=== PATIENT | male | born 1940 | race Caucasian/White ===

== ENCOUNTER 2017-01-14 13:54 | Inpatient (IN) | payer MEDICARE ==
[~2017-01-14] VITALS: Ht 180.3 cm; Wt 71.0 kg
[~2017-01-14 13:54] MED LIST: ADVAIR 250/501 DISK INH; BAYER CHEWABLE81 MG PO; CADUET 5 MG/401 TAB PO; GLUCOPHAGE500 MG PO; HYDROCHLOROTHIA25 MG PO; HYTRIN1 MG; LANTUS INSULIN10 ML; NOVOLOG100 U/M1; PROAIR HFA8.5 GM INH; ZOCOR20 MG PO
[2017-01-14 15:15] LABS: BASOPHILS 0.1 % (0-2); EOSINOPHILS 1.7 % (0-7); HEMATOCRIT 39.3 % (42.0-54.0); HEMOGLOBIN 13.3 g/dL (13.5-17.5); IMMATURE GRANULOCYTES 0.3 % (0-5); LYMPHOCYTES 11.3 % (15-50); MCH 30.7 pg (26.0-34.0); MCHC 33.8 g/dL (31.0-37.0); MCV 90.8 fL (80.0-100.0); MEAN PLATELET VOLUME 9.4 fL (7.4-10.4); MONOCYTES 7.4 % (2-11); NEUTROPHILS 79.2 % (40-80); PLATELET COUNT 154 10x3/uL (130-400); RBC 4.33 10x6/uL (4.20-6.10); RDW 13.2 % (11.5-14.5); WBC 14.1 10x3/uL (4.8-10.8)
[2017-01-14 15:35] LABS: ALBUMIN 3.6 g/dL (3.4-5.0); ANION GAP 9.8 mmol/L (8-16); BILIRUBIN - TOTAL 0.66 mg/dL (0.2-1.3); CALCIUM 8.9 mg/dL (8.5-10.1); CARBON DIOXIDE 28.8 mmol/L (21.0-32.0); CREATININE - SERUM 1.3 mg/dL (0.6-1.3); POTASSIUM - SERUM 4.6 mmol/L (3.5-5.1); PROTEIN - SERUM 6.7 g/dL (6.4-8.2)
[2017-01-14 15:48] LABS: APTT 27.3 SECONDS (22.8-39.4); INR 0.99 (0.85-1.17); PROTIME 12.9 SECONDS (11.6-15.0)
--- NOTE | 2017-01-14 17:10 | NUR ---
RECEIVED TO ROOM 2224 FROM ER VIA BED. ORIENTED TO ROOM AND CALL LIGHT SYSTEM. IN ROOM. CALL LIGHT IN REACH.
--- NOTE | 2017-01-14 17:29 | NUR ---
MORPHINE GREENHOUSE SUPERINTENDENT INITIATED PER MD ORDERS. ALSO STARTED NS @ 30 CC/HR.
--- NOTE | 2017-01-14 17:40 | NUR ---
HISTORY, MED REC, EMERGENCY CONTACT NUMBER, AND PASSWORD OBTAINED AND PLACED IN COMPUTER.
[2017-01-14] MEDS ORDERED: NOVOLOG100 U/M1 SQ ×3 (17:42→17:43)
[2017-01-14 18:42] VITALS: BP 148/60; BMI 29.3
--- NOTE | 2017-01-14 18:47 | NUR ---
SANDWICH TRAY TAKEN TO PATIENT BECAUSE HE DID NOT WANT TRAY THAT WAS GIVEN TO HIM. WILL ASK PUBLIC ADDRESS SYSTEM MECHANIC TO PLACE BED ALARM, PLEXI-PULSES, AND GET CONSENTS IF POSSIBLE. CALL LIGHT IN REACH. WILL CONTINUE WITH PLAN OF CARE.
--- NOTE | 2017-01-14 19:00 | NUR ---
REPORT RECEIVED AND CARE OF PT ASSUMED. DAY SHIFT NURSE HAD PT SIGN CONSENTS. WILL MONITOR FOR NEEDS.
[2017-01-14 20:00] VITALS: BP 138/57
--- NOTE | 2017-01-14 21:33 | NUR ---
HS MEDICATIONS GIVEN. WILL CONTINUE TO MONITOR FOR NEEDS.
--- NOTE | 2017-01-14 21:40 | NUR ---
IV IN LEFT AC STARTED BLEEDING. REMOVED WITH CATHETER TIP INTACT. RE-SITED TO LEFT WRIST USING 20 GUAGE CATHETER IN ONE STICK. PT TOLERATED WELL. IV FLUIDS AND CATSHOVEL DRIVER RE-STARTED.
--- NOTE | 2017-01-14 22:10 | NUR ---
GAVE MORPHINE BOLUS VIA SWIMMING COACH PER ORDER, FOR SEVERE PAIN. WILL MONITOR FOR EFFECTIVENESS.
[2017-01-15] VITALS (15 sets, daily range): BP systolic 109–153; BP diastolic 63–90
[2017-01-15 05:17] LABS: HEMATOCRIT 35.8 % (42.0-54.0); HEMOGLOBIN 11.9 g/dL (13.5-17.5); MCH 30.5 pg (26.0-34.0); MCHC 33.2 g/dL (31.0-37.0); MCV 91.8 fL (80.0-100.0); MEAN PLATELET VOLUME 9.7 fL (7.4-10.4); RBC 3.9 10x6/uL (4.20-6.10); RDW 13.7 % (11.5-14.5); WBC 11.5 10x3/uL (4.8-10.8)
--- NOTE | 2017-01-15 07:00 | NUR ---
REPORT RECEIVED, ASSUMED CARE OF PT. RESTING, FAMILY AT BEDSIDE, NO NEEDS VOICED AT THIS TIME. L WRIST IV INFUSING ORDERED, GROUP SALES REPRESENTATIVE ORDERED, DRSG C/D/I. 2L O2 VIA NASAL CANNULA. BED ALARM ON, BED IN LOWEST POSITION, SIDE RAILS UP X 2, CALL LIGHT WITHIN REACH.
--- NOTE | 2017-01-15 08:00 | NUR ---
PT LEFT FLOOR WITH HOSPITAL STAFF FOR SURGICAL PROCEDURE
--- NOTE | 2017-01-15 09:16 | NUR ---
PT'S ARMS CROSSED ON CHEST WITH FOAM PADDING AND SECURED WITH A DRAW SHEET PER D.N.
--- NOTE | 2017-01-15 12:33 | NUR ---
PT RETURNED TO FLOOR FROM RECOVERY ROOM. PT HAS TO BE WOKEN UP CONSTANTLY TO BE REMINDED TO BREATH, O2 SAT 87%, 7L OXIMIZER PLACED ON PT, O2 UP TO 94%, PT DE-SATS BACK DOWN TO 86-88% WHEN NOT STIMULATED TO BREATH. DR. MENDEZ IN ROOM, SUGGESTED TO TRANSFER TO ICU.
--- NOTE | 2017-01-15 13:25 | NUR ---
REPORT CALLED TO SILVANA IN ICU
--- NOTE | 2017-01-15 13:30 | NUR ---
REC'D FROM FLOOR TO ROOM 2302 AND HOOKED UP TO CM. NS RATE OF 66. BP 138/65. SATTING 97% ON 40% FIO2 BIPAP PUT ON BY KARISHMA RONDON RT. WAKES UP AND TRIE TO TALK BUT IS TO SEDATED TO ANSWER QUESTIONS AT THIS TIME. BILAT WRIST PIV'S=SL. LEFT HIP INCISIONS X4. DRSG CD&I. NO S/S OF BLEEDING OR HEMATOMA. BARRAGAN. PPP BUT WEAK IN LOWER EXT. FOLLOWS COMMANDS. CLWR. CPOC.
--- NOTE | 2017-01-15 13:35 | NUR ---
PT TRANSFERRED VIA BED TO ICU ROOM #2202, FANY CONTACTED AND NOTIFIED.
--- NOTE | 2017-01-15 14:00 | NUR ---
20 MG MORPHINE BLOCK TRADER WASTED, PT NO LONGER IN OUR PYXIS SINCE ICU TRANSFER, VERIFIED BY LILIANA Pearce RN.
--- NOTE | 2017-01-15 14:54 | NUR ---
REMAINS ON BIPAP. STILL SEDATED FROM SURGERY. VSS.
[2017-01-15 14:59] LABS: ANION GAP 14.8 mmol/L (8-16); CALCIUM 7.7 mg/dL (8.5-10.1); CARBON DIOXIDE 22.7 mmol/L (21.0-32.0); CREATININE - SERUM 2.6 mg/dL (0.6-1.3)
[2017-01-15 15:00] LABS: POTASSIUM - SERUM 8.5 mmol/L (3.5-5.1)
--- NOTE | 2017-01-15 15:26 | NUR ---
MADDOX CATH PLACED BY TERRY BERNAL RN.
--- NOTE | 2017-01-15 15:41 | NUR ---
DISCUSSED LABS AND REVIEWED EKG WITH DR. BOLAÑOS. ORDERS REC'D.
[2017-01-15 16:29] LABS: CKMB 3.9 U/L (0.0-3.6); CREATINE KINASE 580 UL (21-232)
[2017-01-15 16:31] LABS: TROPONIN-I < 0.017 ng/mL (0.000-0.060)
--- NOTE | 2017-01-15 17:09 | NUR ---
DR. CRUZ AT BEDSIDE PUTTING IN TRYALISIS CATH FOR EMERGENT HD.
--- NOTE | 2017-01-15 17:23 | NUR ---
DR. WHALEN AT BEDSIDE. SPOKE TO HIM ABOUT CONSULT.
--- NOTE | 2017-01-15 17:45 | NUR ---
HD NURSE AT BEDSIDE SETTING UP MACHINE TO START HD.
--- NOTE | 2017-01-15 17:46 | NUR ---
DR. WHALEN CALLED ME FOR TIMEFRAME UPDATE TO WHEN HD WAS TO BEGAN. UPDATED HIM TO THE EFFECT THAT RADIOLOGY HAD JUST OKAYED TRYALISIS CATH TO BE USED AND HD NURSE WAS SETTING MACHINE UP TO DO HD NOW.
[2017-01-15 17:56] LABS: BASOPHILS 0.1 % (0-2); EOSINOPHILS 0 % (0-7); HEMATOCRIT 31.3 % (42.0-54.0); HEMOGLOBIN 10.4 g/dL (13.5-17.5); IMMATURE GRANULOCYTES 0.3 % (0-5); LYMPHOCYTES 7.3 % (15-50); MCH 31.1 pg (26.0-34.0); MCHC 33.2 g/dL (31.0-37.0); MCV 93.7 fL (80.0-100.0); MEAN PLATELET VOLUME 9.5 fL (7.4-10.4); MONOCYTES 8.4 % (2-11); NEUTROPHILS 83.9 % (40-80); PLATELET COUNT 147 10x3/uL (130-400); RBC 3.34 10x6/uL (4.20-6.10); RDW 13.8 % (11.5-14.5)
[2017-01-15 17:59] LABS: WBC 17.1 10x3/uL (4.8-10.8)
--- NOTE | 2017-01-15 18:03 | NUR ---
REMAINS SEDATED FROM SURGERY. ON BIPAP. WILL ANSWER QUESTIONS WITH HEAD NODS. BARRAGAN. FOLLOWS COMMANDS. SATTING 98% ON BIPAP. NO DISTRESS. VSS.
[2017-01-15 18:06] LABS: APPEARANCE CLEAR (CLEAR); BILIRUBIN NEGATIVE (NEGATIVE); COLOR YELLOW (YELLOW); GLUCOSE NEGATIVE (NEGATIVE); KETONE NEGATIVE (NEGATIVE); NITRITE NEGATIVE (NEGATIVE); PROTEIN NEGATIVE (NEGATIVE); UROBILINOGEN NORMAL (NORMAL)
[2017-01-15 18:10] LABS: ALBUMIN 2.9 g/dL (3.4-5.0); BILIRUBIN - DIRECT 0.11 mg/dL (0.00-0.30); BILIRUBIN - INDIRECT 0.55 mg/dL (0.00-1.00); BILIRUBIN - TOTAL 0.66 mg/dL (0.2-1.3); PROTEIN - SERUM 5.8 g/dL (6.4-8.2)
[2017-01-15 18:17] LABS: PROTEIN - URINE 20.2 mg/dL (0.0-11.9)
[2017-01-15 18:23] LABS: CREATININE - URINE 202.7 mg/dL (30-125); PRO/CRE RATIO URINE 0.1 mg/g
[2017-01-15 18:31] LABS: CALC OSMOLALITY 297 mosm/kg (275-300); CALCIUM 7.6 mg/dL (8.5-10.1); CARBON DIOXIDE 23.5 mmol/L (21.0-32.0); CHLORIDE - SERUM 104 mmol/L (98-107); CREATINE KINASE 647 UL (21-232); CREATININE - SERUM 2.6 mg/dL (0.6-1.3); GLUCOSE 334 mg/dL (74-106); MAGNESIUM - SERUM 2.2 mg/dL (1.8-2.4); PHOSPHOROUS 4.7 mg/dL (2.5-4.9); SODIUM 136 mmol/L (136-145); UREA NITROGEN 49 mg/dL (7-18); eGFR NON AFRICAN AMERICAN 25 mL/min (90-120)
[2017-01-15 18:53] LABS: TROPONIN-I < 0.017 ng/mL (0.000-0.060)
[2017-01-15 18:54] LABS: POTASSIUM - SERUM 7.1 mmol/L (3.5-5.1)
[2017-01-15 18:55] LABS: CKMB 4.1 U/L (0.0-3.6)
--- NOTE | 2017-01-15 19:30 | NUR ---
SHIFT ASSESSMENT COMPLETE. DIALYSIS NURSE AT BEDSIDE. PT IS A&O X4 WITH NO COMPLAINTS OF PAIN AT THIS TIME. PERRLA, 3 MM, SLUGGISH REACTION TO LIGHT. V/S: HR 112 SINUS TACH, BP 136/78, RR 12 SHALLOW, O2 98% BIPAP @ 40% FIO2, TEMP 98.5 AXILLARY. S1S2 AUDIBLE, CLEAR LUNG SOUNDS THROUGHOUT ALL LOBES. ABD IS SOFT AND NON TENDER TO TOUCH. TRIALYSIS CATH TO R IJ, DRESSING CDI. BILAT WRIST PIV. R WRIST INFUSING 1/2 NS @ KVO. L WIRST INFUSING BICARB @ 75 ML/HR. MADDOX CATH INTACT DRAINING CLEAR YELLOW URINE. RADIAL PULSES PALP. PEDAL PULSES WEAK. L HIP INCISIONS X4, DRESSINGS CDI WITH NO DRAINAGE NOTED. FARZAD WELSH AND SCD'S ON. NO FURTHER NEEDS AT THIS TIME. WILL CONT TO MONITOR.
--- NOTE | 2017-01-15 20:45 | NUR ---
DILAYSIS NURSE LEAVING. AT BEDSIDE. WILL CONT TO MONITOR. VSS.
--- NOTE | 2017-01-15 21:25 | NUR ---
LAB REDRAW PER DR. WHALEN'S ORDERS. AT BEDSIDE. HE DENIES ANY PAIN AT THIS TIME. OFFERED TO PERFORM ORAL CARE, BUT HE STATED THAT HE DID NOT WANT ANY. REFILLED REFRESHMENTS. BLOOD SUGAR 218. ADMINISTERED 4 UN INSULIN PER SLIDING SCALE. NO FURTHER NEEDS AT THIS TIME. VSS. WILL CONT TO MONITOR.
[2017-01-15 22:25] LABS: ANION GAP 11.5 mmol/L (8-16); CALCIUM 7.9 mg/dL (8.5-10.1); CARBON DIOXIDE 29.2 mmol/L (21.0-32.0)
[2017-01-15 22:29] LABS: POTASSIUM - SERUM 4.7 mmol/L (3.5-5.1)
--- NOTE | 2017-01-15 23:20 | NUR ---
REASSESSMENT COMPLETE. PT IS IN GOOD SPIRITS WITH NO COMPLAINTS OF PAIN. REFILLED REFRESHMENTS. HE IS A&O X4. S1S2 AUDIBLE. LUNG SOUNDS CLEAR THROUGHOUT ALL LOBES. OXIMIZER IN, O2 DECREASED FROM 11 L/MIN TO 9 L/MIN. RADIAL AND PEDAL PULSES PALP. PEDAL PULSES ARE GETTING STRONGER. L HIP INCISIONS ARE CDI, ICE PACKS APPLIED. NO FURTHER REQUESTS. WILL CONT WITH POC.
[2017-01-16] VITALS (14 sets, daily range): BP systolic 143–179; BP diastolic 50–91; Ht 180.3 cm; Wt 71.0 kg
--- NOTE | 2017-01-16 01:20 | NUR ---
PT RESTING PEACEFULLY AT THIS TIME WITH NO SIGNS OF ACUTE DISTRESS NOTED. WILL CONT WITH POC.
--- NOTE | 2017-01-16 03:00 | NUR ---
REASSESSMENT COMPLETE. NO CHANGES NOTED. PT IS IN GOOD SPIRITS AND IS ASKING WHEN HE WILL BE D/C FROM THE ICU. INFORMED HIM THAT HIS DOCTORS WOULD DISCUSS THE STATUS OF HIS CARE IN THE AM AND THAT THEY WOULD THEN MAKE THEIR DECISION. HE STATED THAT HE UNDERSTOOD. HE DENIES ANY PAIN. REPOSITIONED FOR COMFORT. REFILLED REFRESHMENTS. WILL CONT TO MONITOR.
[2017-01-16 04:22] LABS: BASOPHILS 0.1 % (0-2); EOSINOPHILS 0 % (0-7); HEMATOCRIT 27.3 % (42.0-54.0); HEMOGLOBIN 9.2 g/dL (13.5-17.5); IMMATURE GRANULOCYTES 0.2 % (0-5); LYMPHOCYTES 13.3 % (15-50); MCH 31.2 pg (26.0-34.0); MCHC 33.7 g/dL (31.0-37.0); MCV 92.5 fL (80.0-100.0); MEAN PLATELET VOLUME 9.6 fL (7.4-10.4); MONOCYTES 13.4 % (2-11); PLATELET COUNT 114 10x3/uL (130-400); RBC 2.95 10x6/uL (4.20-6.10); RDW 13.5 % (11.5-14.5); WBC 12.3 10x3/uL (4.8-10.8)
[2017-01-16 05:05] LABS: ALBUMIN 2.7 g/dL (3.4-5.0); ALKALINE PHOSPHATASE 40 U/L (46-116); ALT (SGPT) 25 U/L (10-68); BILIRUBIN - TOTAL 0.63 mg/dL (0.2-1.3); CALCIUM 7.6 mg/dL (8.5-10.1); CARBON DIOXIDE 29.7 mmol/L (21.0-32.0); CHLORIDE - SERUM 100 mmol/L (98-107); MAGNESIUM - SERUM 1.8 mg/dL (1.8-2.4); PHOSPHOROUS 4.6 mg/dL (2.5-4.9); POTASSIUM - SERUM 4.7 mmol/L (3.5-5.1); PROTEIN - SERUM 5.3 g/dL (6.4-8.2); SODIUM 135 mmol/L (136-145); UREA NITROGEN 36 mg/dL (7-18); eGFR NON AFRICAN AMERICAN 34 mL/min (90-120)
[2017-01-16 05:13] LABS: CALC OSMOLALITY 288 mosm/kg (275-300); CKMB 5.7 U/L (0.0-3.6); CREATINE KINASE 930 UL (21-232); GLUCOSE 301 mg/dL (74-106)
--- NOTE | 2017-01-16 05:30 | NUR ---
REPOSITONED FOR COMFORT. PT DENIES ANY FURTHER REQUESTS. REFRESHMENTS ON BEDSIDE TABLE. WILL CONT WITH POC.
--- NOTE | 2017-01-16 06:24 | NUR ---
PT COMPLAINS OF 7/10 PAIN THAT IS AFFECTING HIS L HIP AND LEG. ADMINISTERED PRN PAIN MEDS AND REPOSITIONED FOR COMFORT. REFILLED REFRESHMENTS. WILL CONT WITH POC.
--- NOTE | 2017-01-16 06:45 | NUR ---
DR. WHALEN AT BEDSIDE. NEW ORDERS RECIEVED
--- NOTE | 2017-01-16 07:00 | NUR ---
PT REPORT REC'D, PT CARE ASSUMED. PT AAOX4 SITTING UP IN BED, DENIES ANY PAIN UPON ASSESSMENT. MADDOX CATHETER FREE OF KINKS TO GRAVITY WITH CLEAR YELLOW URINE RETURN. RIGHT JUGLAR TRIALYSIS, S/L'ED, DRESSING CDI. RIGHT HAND PIV, WITH FLUIDS INFUSING, SEE FLOW SHEET, DRESSING CDI, NO SIGNS OF INFILTRATION. SHIFT ASSESSMENT COMPLETED, SEE FLOW SHEET. ROOM FREE OF CLUTTER, CALL LIGHT IN REACH, BED LOCKED IN LOWEST POSITION, BED ALARM ACTIVE, WILL CONTINUE TO ZEN PT.
--- NOTE | 2017-01-16 07:30 | NUR ---
DR. WHALEN AT THE BEDSIDE
--- NOTE | 2017-01-16 07:45 | NUR ---
PT HR INCREASED ST FROM HR OF 80-90'S TO 170'S, DR. WHALEN INFORMED, ORDERS RECEIVED. PT DENIES ANY PAIN AT THIS TIME. WILL CONTINUE TO MONITOR PT.
--- NOTE | 2017-01-16 08:00 | NUR ---
PAGED DR. AGUILA TO INFORM OF CONSULT
[2017-01-16 08:50] LABS: CKMB 5.3 U/L (0.0-3.6); TROPONIN-I 0.022 ng/mL (0.000-0.060)
--- NOTE | 2017-01-16 09:00 | NUR ---
PTS AT THE BEDSIDE, ALL QUESTIONS ANSWERED, VSS, WILL CONTINUE TO MONITOR PT.
--- NOTE | 2017-01-16 09:11 | NUR ---
DR. QUEZADA AT THE BEDSIDE, ALL QUESTIONS ANSWERED, VSS, WILL CONTINUE TO MONITOR PT.
[2017-01-16 09:14] LABS: CREATINE KINASE 1165 UL (21-232)
--- NOTE | 2017-01-16 10:00 | NUR ---
SPOKE WITH DR. AGUILA'S NURSE, SEAN TO INFORM OF CONSULT, "OKAY, I WILL LET HIM KNOW."
--- NOTE | 2017-01-16 11:56 | NUR ---
DR. FERNANDEZ AT THE BEDSIDE, ALL QUESTIONS ANSWERED, VSS, WILL CONTINUE TO MONITOR PT.
--- NOTE | 2017-01-16 12:20 | NUR ---
PT C/O RIGHT HAND PIV HURTING HAND, D/C'ED IV, TIP INTACT, PRESSURE APPLIED, BANDAID APPLIED, WILL CONTINUE TO MONITOR PT.
--- NOTE | 2017-01-16 13:00 | NUR ---
PTS AT THE BEDSIDE, ALL QUESTIONS ANSWERED, VSS, WILL CONTINUE TO MONITOR PT.
[2017-01-16 14:09] LABS: ANION GAP 10.9 mmol/L (8-16); CALCIUM 7.6 mg/dL (8.5-10.1); CARBON DIOXIDE 30.6 mmol/L (21.0-32.0); CREATININE - SERUM 1.7 mg/dL (0.6-1.3); POTASSIUM - SERUM 4.5 mmol/L (3.5-5.1)
--- NOTE | 2017-01-16 14:10 | NUR ---
* Is the patient Alert and Oriented? Yes 0 * How many steps to enter\exit or inside your home? 2 0 * PCP Dr. Gonzalez 0 * Pharmacy [facility] in [place] 0 * Preadmission Environment Home with Family 0 * ADLs Independent 0 * List name and contact numbers for known caregivers / representatives who currently or will assist patient after discharge: Spouse - Aracely [phone] 0 * Additional services required to return to the preadmission environment? Yes 0 * Can the patient safely return to the preadmission environment? Yes 0 * Has this patient been hospitalized within the prior 30 days at any hospital? No Patient Name: JOSE LUIS WRIGHT Admission Status: ER Accout number: [id number] Admission Date: 01-14-2017 : 1938 Admission Diagnosis: Attending: MARCOS MENDEZ Current LOS: 2 Planned Disposition: HH vs SNF Primary Insurance: [facility] Discharge Planning Comments: CM met with patient & spouse to assess dc plans/needs. Patient states he lives at home with his , Aracely. He reports he was fully independent with all ADL's & IADL's prior to hospital admission. He has not had home health services or required the use of any DME prior to admission. Discussed dc options with them, including home health & SNF options - they are open to these options if necessary. CM will follow & assist as needed. Clinical Project Manager: Paty Linares
--- NOTE | 2017-01-16 15:59 | NUR ---
PTS HR INCREASING TO 180'S-190'S, INFORMED DR. AGUILA, REC'D ORDERS TO "DC BYSTOLIC AND START CARDIZEM 60MG TID." WILL CONTINUE TO MONITOR PT.
--- NOTE | 2017-01-16 17:13 | NUR ---
PT REPORT CALLED TO MACY CUI, PT TO TRANSFER TO ROOM 2214 ONCE ROOM IS CLEANED.
--- NOTE | 2017-01-16 19:15 | NUR ---
RECEIVED TO ROOM 2214 VIA BED FROM ICU. A/O X3. DRESSINGS TO LEFT HIP DRY AND INTACT.
[2017-01-17] VITALS: BP 153/56
--- NOTE | 2017-01-17 01:10 | NUR ---
2000)REC'D PATIENT REQUESTING TO BE TURNED ASKED WHICH WAY WOULD YOU LIKE TO TURN? STATES ITS OBVIOUS WON'T BE TURNING ON MY LEFT HIP INSTRUCTED CAN LYE ON AFFECTED/UNAFFECTED SIDE JUST WHAT EVER IS COMFORTABLE FOR YOU. PATIENT STATES HOW WOULD YOU KNOW? EXPLAINED WHENEVER YOU WOULD LIKE TO TURN CALL US WE WOULD BE MORE THAN HAPPY TO ASSIST YOU IN TURNING.WILL CONTINUE TO MONITOR FOR ANY CHGES.IN NEUROVASCULAR STATUS AND FOLLOW CURRENT PLAN OF CARE
[2017-01-17 06:14] LABS: IMMUNOGLOBULIN E 304 IU/mL (0-100)
--- NOTE | 2017-01-17 07:51 | OP ---
PATIENT NAME: JOSE LUIS CADET MEDICAL RECORD: [id number] :38 LOCATION:D[facility] ADMISSION DATE:01/14/17 SURGEON: MARCOS HARRIS DO DATE OF OPERATION: 01/15/2017 PROCEDURE PERFORMED: Left femur subtrochanteric fracture, open reduction with intramedullary nailing. PREOPERATIVE DIAGNOSIS: Left femur closed subtrochanteric fracture. POSTOPERATIVE DIAGNOSIS: Left femur closed subtrochanteric fracture. INDICATIONS: Mr. Jose Luis Cadet is a 76-year-old male who was walking on a trail yesterday who fell and sustained a left subtrochanteric femur fracture. He was brought to the ER by EMS and seen to have a fracture. After discussion was had with him, he decided to proceed forward proceed with surgery. SURGEON: Marcos Harris DO COMPLICATIONS: None. TOTAL BLOOD LOSS: Approximately 300 mL. DESCRIPTION OF PROCEDURE: The patient was taken to the operative suite, laid in supine position, given general anesthetic and intubated. Once this was done, 2 grams Ancef were given and the patient was placed over on fracture table and placed in the fracture table boot and then pulled down the perineal post. Once he was positioned, the right leg was taped to the left leg tello and then the x-rays were done. Reduction that was made seen to not be reduced on close methods, so after the timeout was performed and everyone was in agreement with the correct site and side and procedure, the left leg was prepped and draped in sterile fashion. After this was done, incision commenced over the fracture site itself. Careful dissection was made down to the IT band. IT band was incised and then the vastus lateralis was . Hohmanns were used to retract the muscle from around the femur and clamps were used to reduce the femur. Once this was reduced and adequately confirmed on AP and lateral, attention was drawn to the proximal portion of the hip. A starting point was made with a guide pin on the greater trochanter and the opening reamer was used. Then, the guidepin was slid down to the shaft of the femur. Reaming commenced at 9 up to a 14.5mm and the 13 nail was placed down the femur and down to the appropriate position. A 400-mm nail was used. Then, a guidepin was placed into the center of the head that measured to be 110mm. Then, an overdrill was used and the lag screw was put into place. This was then compressed and locked at the proximal portion of the nail. An anti-rotation screw was then attempted to put in and the drill bit broke in the greater trochanter itself and this was aborted. I decided not to put any anti-rotation screw in. Once this was done, the jig was removed and the x-rays were taken confirming good position. Then, the attention was drawn distally. The 2 distal locking screws were put into place after perfect circles were made and this confirmed to be good placed, a 52 screw distally and then a 48 in the more proximal hole were put into place. The clamps were then removed off the femur and x-rays were taken up and down the femur, seemed to be in good and adequate position. The nail was in good position, so as the fracture. The irrigation was then done at all the sites and the IT band was closed over the open incision with #1 Vicryl and at the proximal incision where the nail was entered. Then, the skin was then closed with 2-0 Vicryl at all the incisions OPERATIVE REPORT [id number] JOSE LUIS CADET and then Prineo Dermabond glue was placed over each incision. Telfa and Tegaderm were placed over the incision sites. After this, the patient was awakened and taken to recovery in stable condition. TRANSINT:[id number] Voice Confirmation ID: [id number] DOCUMENT ID: [id number] MARCOS HARRIS DO at 0751 CC: [id number] DICTATION DATE: 01/15/17 1129 CONTENT PRODUCER: 01/15/17 1509 ADM IN [facility] [address] [place] [address]
--- NOTE | 2017-01-17 08:02 | NUR ---
AWAKE AND ALERT. ORIENTED X3. NO C/O AT THIS TIME. LUNGS ARE CLEAR BILATERALLY, NO COUGH NOTED. SKIN IS INTACT WITHOUT REDNESS EXCEPT INCISIONS TO LEFT LEG WHICH HAVE CLEAN DRY DRESSINGS IN PLACE. SL TO LEFT HAND PATENT WITHOUT REDNESS AT INSERTION SITE. DIALYSIS CATHETER TO RIGHT NECK PATNET WITHOUT REDNESS AT ISNERTION SITE. DENIES NEEDS.
[2017-01-17 09:05] VITALS: BP 131/31
[2017-01-17 10:18] LABS: HEPATITIS C ANTIBODY <0.1 (0.0-0.9)
--- NOTE | 2017-01-17 10:30 | NUR ---
UNABLE TO VOID STILL. BRIGHT RED BLOOD CONTINUES TO DRIBBLE FROM PENIS. BLADDER SCAN SHOWED 405cc. 16F MADDOX PLACED USING STERILE TECHNIQUE. ALL CONTENTS OF KIT UTILIZED EXCEPT COLLECTION CONTAINER. PATIENT TOLERATED WITHOUT C/O INCREASED PAIN. IMMEDIATE RETURN OF LARGE CLOT AND BLOODY URINE. DR. HARRIS NOTIFIED OF SAME. NO NEW ORDERS AT THIS TIME. MADDOX WAS IRRIGATED WITH 50 CC STERILE SALINE AND PRESSURE APPLIED WITH STAT LOCK.
--- NOTE | 2017-01-17 10:54 | NUR ---
ATEMPTED OOB WITH PT. PATIENT WENT UNRESPONSIVE. 02 SAT AT 84%. PLACED BACK IN BED. BP 113/48, RESP 16, O2 SAT AT 97% ON 2LNC. RESPONDS APPROPRIATLY TO QUESTIONS. BACK TO BASELINE AT THIS TIME.
[2017-01-17 11:23] LABS: ALBUMIN 2.5 g/dL (3.4-5.0); ANION GAP 10.7 mmol/L (8-16); BILIRUBIN - TOTAL 0.83 mg/dL (0.2-1.3); CALCIUM 7.5 mg/dL (8.5-10.1); CARBON DIOXIDE 29.8 mmol/L (21.0-32.0); CREATININE - SERUM 1.5 mg/dL (0.6-1.3); POTASSIUM - SERUM 4.5 mmol/L (3.5-5.1); PROTEIN - SERUM 5.2 g/dL (6.4-8.2)
[2017-01-17 11:35] VITALS: BP 116/46
[2017-01-17 16:12] VITALS: BP 133/55
--- NOTE | 2017-01-17 16:42 | CN ---
PATIENT NAME:JOSE LUIS WRIGHT MEDICAL RECORD: [id number] : 38 LOCATION:D[facility] ADMIT DATE: 01/14/17 ACCOUNT: [id number] CONSULTING PHYSICIAN: TIARA FERNANDEZ MD REFERRING PHYSICIAN: MARCOS MENDEZ MD DATE OF CONSULTATION: 01/16/2017 CARDIOLOGY CONSULTATION DIAGNOSES: 1. Supraventricular tachycardia. 2. Hypertension. 3. Chronic obstructive pulmonary disease. HISTORY OF PRESENT ILLNESS: Mr. Wright presented after a fall with a femur fracture from hiking. He got into respiratory distress, started on updrafts. He had an episode of supraventricular tachycardia after the updrafts. He is now back in sinus rhythm. He does take updrafts at home. He did not feel the dysrhythmia when he was having the tachycardia. His systolic blood pressures in the 150-160 range. He is on no medications for hypertension or for arrhythmia. PHYSICAL EXAMINATION: GENERAL APPEARANCE: Well-nourished, well-developed, appears stated age. Level of distress, comfortable. PSYCHIATRIC: Mental status, alert, normal affect. Orientation, oriented to time, place and person. EYES: Lids and conjunctiva, noninjected. No discharge, no pallor. ENT: Lips, teeth, gums, normal dentition. Oropharynx, no cyanosis, no pallor. NECK: Carotid arteries, bilateral normal upstroke, no bruits, no thrills. JUGULAR VEINS: No jugular venous pressure or distention. CERVICAL LYMPH NODES: Nontender, nonenlarged. THYROID: Not enlarged. Nontender. No nodules. LUNGS: Respiratory effort, unlabored. CHEST: Normal curvature. No thoracic deformity. No chest wall tenderness. Percussion, resonant. Auscultation, clear. No wheezes, no rales, no rhonchi. CARDIOVASCULAR: Precordial exam, nondisplaced. No heaves or pericardial thrills. Rate and rhythm, regular. Heart sounds, normal S1, normal S2. No S3, no gallop, no rub. Systolic murmur, not heard. Diastolic murmur, not heard. EXTREMITIES: No cyanosis, no edema. Peripheral pulses, full and equal in all extremities, except as noted. No bruits appreciated. ABDOMEN: Soft, nondistended. Normal aorta. No bruit. Nontender. No masses. Liver, nontender, no hepatomegaly. Spleen, nontender, no splenomegaly. MUSCULOSKELETAL: No joint tenderness. No joint swelling. No erythema. NEUROLOGICAL: Normal gait, normal strength, normal tone. SKIN: Warm and dry. OVERALL IMPRESSION: Hypertension, episodic supraventricular tachycardia. We will start him on Bystolic 5 mg a day. Hopefully, this will prevent further dysrhythmias like this in the future. TRANSINT:[id number] Voice Confirmation ID: [id number] DOCUMENT ID: [id number] CONSULT REPORT [id number] JOSE LUIS WRIGHT, TIARA MENARD at 1642 CC: [id number] DICTATION DATE: 01/16/17 1200 CANE BURNER: 01/16/17 1241 ADM IN [place] [id number] [place] [id number]
--- NOTE | 2017-01-17 17:00 | NUR ---
FSBS 260. GIVEN 8 UNITS HUMALOG SUBQ PER SS. SUPPER TRAY SERVED IN ROOM.
--- NOTE | 2017-01-17 18:24 | NUR ---
ATE MOST OF SUPPER HIMSELF. NO CHANGES NOTED. DENIES NEEDS.
[2017-01-17 20:00] VITALS: BP 137/50
[2017-01-18] VITALS (18 sets, daily range): BP systolic 124–158; BP diastolic 40–90
[2017-01-18 05:10] LABS: BASOPHILS 0.1 % (0-2); EOSINOPHILS 2.2 % (0-7); HEMATOCRIT 20.4 % (42.0-54.0); IMMATURE GRANULOCYTES 0.2 % (0-5); LYMPHOCYTES 15.6 % (15-50); MCH 30.4 pg (26.0-34.0); MCHC 33.3 g/dL (31.0-37.0); MCV 91.1 fL (80.0-100.0); MEAN PLATELET VOLUME 9.5 fL (7.4-10.4); MONOCYTES 13.7 % (2-11); NEUTROPHILS 68.2 % (40-80); PLATELET COUNT 122 10x3/uL (130-400); RBC 2.24 10x6/uL (4.20-6.10); RDW 13.2 % (11.5-14.5); WBC 10.3 10x3/uL (4.8-10.8)
[2017-01-18 05:27] LABS: HEMOGLOBIN 6.8 g/dL (13.5-17.5)
[2017-01-18 05:32] LABS: ALBUMIN 2.3 g/dL (3.4-5.0); BILIRUBIN - TOTAL 0.85 mg/dL (0.2-1.3); CALCIUM 7.3 mg/dL (8.5-10.1); CARBON DIOXIDE 31.2 mmol/L (21.0-32.0); CREATININE - SERUM 1.7 mg/dL (0.6-1.3); POTASSIUM - SERUM 4.2 mmol/L (3.5-5.1); PROTEIN - SERUM 5.1 g/dL (6.4-8.2)
--- NOTE | 2017-01-18 07:15 | NUR ---
AWAKE AND ALERT AT THIS TIME. RESPIRATIONS EVEN AND NON LABORED WITH OXYGEN ON 3L VIA NC. MADDOX CATHETER PATENT AND DRAINING TO GRAVITY. PROVIDED PT WITH FRESH ICE WATER. BED ALARM ON AND CALL LIGHT IN REACH. WILL CONTINUE WITH PLAN OF CARE.
--- NOTE | 2017-01-18 08:20 | NUR ---
SCHEDULED MEDICATIONS ADMINISTERED AT THIS TIME WITHOUT DIFFICULTY. EATING BREAKFAST WITH NO COMPLAINTS. CALL LIGHT IN REACH AND BED ALARM REMAINS ON. WILL CONTINUE WITH PLAN OF CARE.
--- NOTE | 2017-01-18 11:00 | NUR ---
AT BEDSIDE. RESPIRATIONS REMAINS EVEN AND NON LABORED. PROVIDED PT AND SPOUSE WITH FRESH ICE WATER. CALL LIGHT IN REACH, WILL CONTINUE WITH PLAN OF CARE.
[2017-01-18 11:02] LABS: HEMOGLOBIN 7.1 g/dL (13.5-17.5)
--- NOTE | 2017-01-18 12:21 | NUR ---
NUTRITION F/U CHART REVIEWED, PT VISIT. TOLERATING ADA DIET, GOOD INTAKE RECENT MEALS. WILL CONTINUE TO PROVIDE DIET, MONITOR PO INTAKE. RD FOLLOWING
--- NOTE | 2017-01-18 13:20 | NUR ---
FIRST UNIT OF BLOOD INITIATED AT THIS TIME PER ORDER AND WITNESSED BY SEE KEITA.
--- NOTE | 2017-01-18 23:54 | NUR ---
RESTING IN BED SR UP X2 CALL LIGHT WITHIN REACH. EYES CLOSED RESPIRATIONS WITH EASE AND UNLABORED.
[2017-01-19] VITALS: BP 144/60
[2017-01-19 04:00] VITALS: BP 153/49
[2017-01-19 06:29] LABS: BASOPHILS 0.2 % (0-2); EOSINOPHILS 5.6 % (0-7); IMMATURE GRANULOCYTES 0.8 % (0-5); LYMPHOCYTES 17.2 % (15-50); MCH 30.2 pg (26.0-34.0); MCHC 34.2 g/dL (31.0-37.0); MEAN PLATELET VOLUME 9.5 fL (7.4-10.4); MONOCYTES 11.8 % (2-11); NEUTROPHILS 64.4 % (40-80); PLATELET COUNT 135 10x3/uL (130-400); RDW 13.8 % (11.5-14.5)
[2017-01-19 06:31] LABS: HEMATOCRIT 27.5 % (42.0-54.0); HEMOGLOBIN 9.4 g/dL (13.5-17.5); MCV 88.4 fL (80.0-100.0); RBC 3.11 10x6/uL (4.20-6.10)
[2017-01-19 06:57] LABS: ALBUMIN 2.3 g/dL (3.4-5.0); ANION GAP 11.6 mmol/L (8-16); BILIRUBIN - TOTAL 1.59 mg/dL (0.2-1.3); CALCIUM 7.4 mg/dL (8.5-10.1); CARBON DIOXIDE 27.5 mmol/L (21.0-32.0); CREATININE - SERUM 1.2 mg/dL (0.6-1.3); POTASSIUM - SERUM 4.1 mmol/L (3.5-5.1); PROTEIN - SERUM 5.4 g/dL (6.4-8.2)
--- NOTE | 2017-01-19 07:45 | NUR ---
RIGHT SUBLCAVIAN TRIALYSIS CATHETER DRESSING COMING OFF. DRESSING CHANGED USING STERILE TECHNIQUE. TOLERATED WITHOUT COMPLAINTS. RESPIRATIONS EVEN AND NON LAORED. CALL LIGHT IN REACH, WILL CONTINUE WITH PLAN OF CARE.
--- NOTE | 2017-01-19 08:57 | NUR ---
SCHEDULED MEDICATIONS ADMINISTERED AT THIS TIME WITHOUT DIFFICULTY. DENIES NEEDS AT THIS TIME. CALL LIGHT IN REACH, WILL CONTINUE WITH PLAN OF CARE.
[2017-01-19 09:37] VITALS: BP 152/59
[2017-01-19 13:06] VITALS: BP 153/52
--- NOTE | 2017-01-19 15:29 | NUR ---
Rehab Note- Acute Rehab Prescreen order received. The patient has [facility] insurance and will require a PreAuth prior to an acute rehab stay. Has an OT eval ordered but not done yet. Will need eval for PreAuth. Will begin PreAuth process with [facility]. Thank you for this referral! Latesha Pal RN Clinical Liaison, [facility] Rehab
[2017-01-19 15:58] VITALS: BP 150/60
--- NOTE | 2017-01-19 16:15 | NUR ---
PRN OXY IR ADMINISTERED PER ORDER.
[2017-01-19 20:00] VITALS: BP 153/57
[2017-01-20] VITALS (7 sets, daily range): BP systolic 149–174; BP diastolic 49–88
[2017-01-20 06:36] LABS: BASOPHILS 0.4 % (0-2); EOSINOPHILS 6.9 % (0-7); HEMATOCRIT 27.6 % (42.0-54.0); HEMOGLOBIN 9.4 g/dL (13.5-17.5); IMMATURE GRANULOCYTES 0.5 % (0-5); LYMPHOCYTES 12.3 % (15-50); MCH 30.3 pg (26.0-34.0); MCHC 34.1 g/dL (31.0-37.0); MEAN PLATELET VOLUME 9.3 fL (7.4-10.4); MONOCYTES 12.9 % (2-11); PLATELET COUNT 154 10x3/uL (130-400); RDW 13.6 % (11.5-14.5); WBC 10.2 10x3/uL (4.8-10.8)
[2017-01-20 07:05] LABS: ALBUMIN 2.3 g/dL (3.4-5.0); ANION GAP 7.9 mmol/L (8-16); BILIRUBIN - TOTAL 1.2 mg/dL (0.2-1.3); CALCIUM 7.6 mg/dL (8.5-10.1); CARBON DIOXIDE 29.9 mmol/L (21.0-32.0); CREATININE - SERUM 1.3 mg/dL (0.6-1.3); POTASSIUM - SERUM 3.8 mmol/L (3.5-5.1); PROTEIN - SERUM 5.2 g/dL (6.4-8.2)
--- NOTE | 2017-01-20 08:34 | NUR ---
SCHEDULED MEDICATIONS ADMINISTERED WITHOUT DIFFICULTY AT THIS TIME. MADDOX PATENT AND DRAINING TO GRAVITY. PRN OXY IR ADMINISTERED FOR PAIN. DENIES FURTHER NEEDS AT THIS TIME. BED ALARM ON AND CALL LIGHT IN REACH, WILL CONTINUE WITH PLAN OF CARE.
--- NOTE | 2017-01-20 12:15 | NUR ---
Doctor has discussed rehab with the patient. Referral was sent to [facility] [place] acute rehab 01/19/17. The OT evaluation was completed this AM. CM spoke with Vicky Godinez, [facility] [place] [place] screener, to advise of OT eval and check progress with jesus. 1215 CM also called [facility] as patient's next choice. Left a voice mail for Kirsten. Await NORMAN.
--- NOTE | 2017-01-20 17:51 | NUR ---
HAD MEDIUM, SOFT BOWEL MOVEMENT WITHOUT DIFFICULTY AT THIS TIME.
[2017-01-21 05:00] LABS: BASOPHILS 0.2 % (0-2); EOSINOPHILS 5.7 % (0-7); HEMATOCRIT 27.5 % (42.0-54.0); HEMOGLOBIN 9.6 g/dL (13.5-17.5); IMMATURE GRANULOCYTES 0.9 % (0-5); LYMPHOCYTES 12.6 % (15-50); MCH 31.2 pg (26.0-34.0); MCHC 34.9 g/dL (31.0-37.0); MCV 89.3 fL (80.0-100.0); MEAN PLATELET VOLUME 9.1 fL (7.4-10.4); MONOCYTES 12.5 % (2-11); NEUTROPHILS 68.1 % (40-80); PLATELET COUNT 158 10x3/uL (130-400); RBC 3.08 10x6/uL (4.20-6.10); RDW 13.4 % (11.5-14.5); WBC 10.1 10x3/uL (4.8-10.8)
[2017-01-21 05:05] VITALS: BP 158/57
[2017-01-21 05:16] LABS: ALBUMIN 2.2 g/dL (3.4-5.0); ANION GAP 8.4 mmol/L (8-16); BILIRUBIN - TOTAL 1.18 mg/dL (0.2-1.3); CALCIUM 7.8 mg/dL (8.5-10.1); CARBON DIOXIDE 29.6 mmol/L (21.0-32.0); CREATININE - SERUM 1.1 mg/dL (0.6-1.3); PROTEIN - SERUM 5.2 g/dL (6.4-8.2)
--- NOTE | 2017-01-21 07:50 | NUR ---
ASSESSMENT COMPLETE. TRIALAYSIS CATH TO R JUGULAR. CARIDAC MONITOR SHOWING SR 69 PER TECH. O2 2L NC. MADDOX PATENT DRAINING ZURI COLORED URINE. DENIES ANY NEEDS AT THIS TIME.
[2017-01-21 08:33] VITALS: BP 169/57
--- NOTE | 2017-01-21 11:04 | NUR ---
COMPLAINING OF IRRITATION AND PAIN ON RIGHT EAR WHERE OXYGEN TUBING IS RUBBING. 2X2 GUAZE APPLIED AND WRAPPED AROUND TUBING. OXY IR GIVEN FOR INCISIONAL PAIN.
[2017-01-21 12:26] VITALS: BP 165/48
--- NOTE | 2017-01-21 15:00 | NUR ---
NO CHANGES NOTED AT PRESENT.
--- NOTE | 2017-01-21 16:26 | NUR ---
LATE ENTRY 01/20/17 1500 CM SPOKE WITH WEI AT [facility]. FAXED REFERRAL. THE PATIENT CAN BE ADMITTED ON MONDAY. WILL NEED TO GET PREAUTH. NO DOCUMENTATION OR FURTHER UPDATE FROM [facility].
[2017-01-21 17:06] VITALS: BP 170/56
--- NOTE | 2017-01-21 17:34 | NUR ---
RESTING QUIETLY AT THIS TIME.
[2017-01-21 22:03] VITALS: BP 168/54
[2017-01-22 00:26] VITALS: BP 173/50
--- NOTE | 2017-01-22 01:30 | NUR ---
CLEANED DRIED BLOOD FROM PERIAREA WITH SOAP AND WATER. PERFORMED MADDOX CARE WITH SURESTEP WIPES. PT CONTINUED WASHING UP WITH BATH WIPES. NO OTHER NEEDS. WILL CONTINUE TO MONITOR.
[2017-01-22 05:06] LABS: BASOPHILS 0.2 % (0-2); EOSINOPHILS 3.8 % (0-7); HEMATOCRIT 28.5 % (42.0-54.0); HEMOGLOBIN 9.6 g/dL (13.5-17.5); IMMATURE GRANULOCYTES 0.7 % (0-5); LYMPHOCYTES 12.9 % (15-50); MCH 30.3 pg (26.0-34.0); MCHC 33.7 g/dL (31.0-37.0); MCV 89.9 fL (80.0-100.0); MEAN PLATELET VOLUME 9.2 fL (7.4-10.4); MONOCYTES 12.7 % (2-11); NEUTROPHILS 69.7 % (40-80); PLATELET COUNT 188 10x3/uL (130-400); RBC 3.17 10x6/uL (4.20-6.10); RDW 13.3 % (11.5-14.5); WBC 11.8 10x3/uL (4.8-10.8)
[2017-01-22 05:40] LABS: ALBUMIN 2.2 g/dL (3.4-5.0); ANION GAP 10.8 mmol/L (8-16); BILIRUBIN - TOTAL 1.32 mg/dL (0.2-1.3); CALCIUM 8.1 mg/dL (8.5-10.1); CARBON DIOXIDE 28.5 mmol/L (21.0-32.0); CREATININE - SERUM 1.2 mg/dL (0.6-1.3); POTASSIUM - SERUM 4.3 mmol/L (3.5-5.1); PROTEIN - SERUM 5.4 g/dL (6.4-8.2)
[2017-01-22 05:47] VITALS: BP 154/57
--- NOTE | 2017-01-22 08:00 | NUR ---
ASSESSMENT COMPLETE. SL TO L FA. TRIALYSIS CATH TO R NECK. DRESSING TO L HIP INTACT. MADDOX PATENT DRAINING ZURI COLORED URINE. CARE TECH SHOWING SR 64 PER TECH. DENIES ANY NEEDS AT THIS TIME.
[2017-01-22 08:10] VITALS: BP 156/52
[2017-01-22 12:51] VITALS: BP 152/57
--- NOTE | 2017-01-22 15:00 | NUR ---
SITTING UP IN CHAIR. DENIES ANY NEEDS AT THIS TIME.
[2017-01-22 16:55] VITALS: BP 166/52
--- NOTE | 2017-01-22 18:13 | NUR ---
NO CHANGES NOTED AT PRESENT.
[2017-01-22 22:33] VITALS: BP 168/54
[2017-01-23 01:36] VITALS: BP 156/47
[2017-01-23 05:04] VITALS: BP 151/49
[2017-01-23 05:16] LABS: BASOPHILS 0.2 % (0-2); EOSINOPHILS 4.8 % (0-7); HEMATOCRIT 27.4 % (42.0-54.0); HEMOGLOBIN 9.1 g/dL (13.5-17.5); IMMATURE GRANULOCYTES 0.8 % (0-5); LYMPHOCYTES 15.5 % (15-50); MCH 29.8 pg (26.0-34.0); MCHC 33.2 g/dL (31.0-37.0); MCV 89.8 fL (80.0-100.0); MEAN PLATELET VOLUME 9.2 fL (7.4-10.4); MONOCYTES 10.7 % (2-11); PLATELET COUNT 192 10x3/uL (130-400); RBC 3.05 10x6/uL (4.20-6.10); RDW 13.2 % (11.5-14.5); WBC 10.3 10x3/uL (4.8-10.8)
[2017-01-23 05:52] LABS: ALBUMIN 2.1 g/dL (3.4-5.0); ANION GAP 10.8 mmol/L (8-16); BILIRUBIN - TOTAL 1.29 mg/dL (0.2-1.3); CARBON DIOXIDE 27.6 mmol/L (21.0-32.0); CREATININE - SERUM 1.3 mg/dL (0.6-1.3); POTASSIUM - SERUM 4.4 mmol/L (3.5-5.1); PROTEIN - SERUM 5.2 g/dL (6.4-8.2)
[2017-01-23 08:21] VITALS: BP 153/51
--- NOTE | 2017-01-23 08:29 | NUR ---
ASSESSMENT PER FLOW SHEET.PT WITHOUT DISTRESS.FALL PREVENTION IN PLACE WITH BED ALARM,BAND AND SOCCKS.DOOR OPEN TO MONITOR.
[2017-01-23] MEDS ORDERED: SENOKOT-S TABLE1 TAB PO (10:19)
[2017-01-23] MEDS ORDERED: HUMALOG 30100 UNITS/ SC (10:19)
[2017-01-23] MEDS ORDERED: MIRALAX17 GM PO (10:19)
[2017-01-23] MEDS ORDERED: XOPENEX 0.0.63 MG/3 UPD (10:19)
[2017-01-23] MEDS ORDERED: OXYCODONE HCL5 MG PO (10:19)
[2017-01-23] MEDS ORDERED: CARDIZEM60 MG PO (10:19)
[2017-01-23] MEDS ORDERED: PULMICORT0.5 MG/21 UPD (10:19)
[2017-01-23] MEDS ORDERED: COLACE100 MG PO (10:19)
[2017-01-23] MEDS ORDERED: ELIQUIS2.5 MG PO (10:19)
[2017-01-23] MEDS ORDERED: LANTUS INSULIN10 ML SC (10:19)
--- NOTE | 2017-01-23 10:36 | NUR ---
spoke with Soraya at [facility], she is going to call and get a pre auth & call me back. The patient can go today. CM awaiting for call back form [facility]. KAILEE served
--- NOTE | 2017-01-23 12:37 | NUR ---
REPORT CALLED TO CHERI AT [facility]. TRILYSIS CATHER RIGHT JUGULAR REMOVED WITH PRESSURE HELD. SALINE LOCK REMOVED INTACT.
--- NOTE | 2017-01-23 13:10 | NUR ---
Patient discharging today to [facility] via their transportation to a skilled bed
--- NOTE | 2017-01-25 10:16 | NUR ---
late entry: cm rec. phone call from patients (tayla) regarding patients discharge to [facility]. cm called rehab (Latesha) and she stated patient was more than likely denied ip stay. cm called patients back but there was no answer/left message for to call cm back.
--- NOTE | 2017-01-26 11:09 | NUR ---
CANDICE HAD MESSAGE TO CALL PATIENTS REGARDING PATIENTS D/C. CANDICE CALLED FANY WRIGHT AND SHE HAD QUESTIONS WITH WHY PATIENT WAS NOT ACCEPTED TO IP REHAB AND WHY PATIENTS CATHETER WAS LEFT IN. CANDICE GILBERT HAD SET UP REHAB WITH BRINA RAMOS FOR TRANSFER TO [facility] ON MONDAY. CANDICE STATED OFELIA WOULD CALL HER ON MONDAY REGARDING PATIENTS DISCHARGE. CANDICE SPOKE WITH SPENSER RN TRAVELING AUDITOR REGARDING MADDOX LEFT IN PATIENT AND SHE STATED THAT BRINA LEONEL REQUESTED IT BE LEFT IN AND WOULD WORK ON BLADDER TRAINING AT FACILITY. CANDICE CALLED FANY WRIGHT BACK AND LET HER KNOW THAT BRINA [facility] HAD REQUESTED IT BE LEFT IN FOR BLADDER TRAINING. SHE STATED OK AND THAT SHE STILL WANTED OFELIA TO CALL HER MONDAY.
== END 2017-01-23 13:10 | DRG 480 ==
LOC: D.ER 13:54 → D.MS 15:48 → D.ICU 15:48 → D.MS 01-16 19:13
PROVIDERS: Anesthesiology; Family Medicine; Internal Medicine; Internal Medicine Nephrology; Internal Medicine Pulmonary Disease; Orthopaedic Surgery; Physician Assistant Medical; ADMIT Family Medicine
PROC: 05HM33Z Insertion of Infusion Device into Right Internal Jugular Vein, Percutaneous Approach (ICD-10-PCS; 2017-01-15)
PROC: B543ZZA Ultrasonography of Right Jugular Veins, Guidance (ICD-10-PCS; 2017-01-15)
PROC: 5A1D70Z Performance of Urinary Filtration, Intermittent, Less than 6 Hours Per Day (ICD-10-PCS; 2017-01-15)
PROC: 0QS706Z Reposition Left Upper Femur with Intramedullary Internal Fixation Device, Open Approach (ICD-10-PCS; principal; 2017-01-15 08:00)
PROC: 0T9B70Z Drainage of Bladder with Drainage Device, Via Natural or Artificial Opening (ICD-10-PCS; 2017-01-17)
DX: S72.22XA Displaced subtrochanteric fracture of left femur, initial encounter for closed fracture (principal); J96.01 Acute respiratory failure with hypoxia; J96.02 Acute respiratory failure with hypercapnia; I47.1 Supraventricular tachycardia; N17.9 Acute kidney failure, unspecified; E87.4 Mixed disorder of acid-base balance; J98.11 Atelectasis; W18.30XA Fall on same level, unspecified, initial encounter; I10 Essential (primary) hypertension; J44.9 Chronic obstructive pulmonary disease, unspecified; G47.33 Obstructive sleep apnea (adult) (pediatric); E11.65 Type 2 diabetes mellitus with hyperglycemia; E87.5 Hyperkalemia; D50.0 Iron deficiency anemia secondary to blood loss (chronic)

== ENCOUNTER 2017-02-22 03:17 | Emergency (ER) | payer MEDICARE ==
[2017-01-16 10:26] VITALS: BMI 30.4
[~2017-02-22 03:17] MED LIST changes: +CARDIZEM60 MG PO; +COLACE100 MG PO; +ELIQUIS2.5 MG PO; +HUMALOG 30100 UNITS/ SC; +LANTUS INSULIN10 ML SC; +MIRALAX17 GM PO; +NOVOLOG100 U/M1 SQ; +OXYCODONE HCL5 MG PO; +PULMICORT0.5 MG/21 UPD; +SENOKOT-S TABLE1 TAB PO; +XOPENEX 0.0.63 MG/3 UPD
[2017-02-22 03:56] LABS: APPEARANCE CLEAR (CLEAR); BILIRUBIN NEGATIVE (NEGATIVE); COLOR YELLOW (YELLOW); GLUCOSE NEGATIVE (NEGATIVE); KETONE NEGATIVE (NEGATIVE); NITRITE NEGATIVE (NEGATIVE); PROTEIN TRACE mg/dL (NEGATIVE); UROBILINOGEN NORMAL (NORMAL)
[2017-02-22 03:57] LABS: BACTERIA FEW /hpf (NONE SEEN); EPITHELIAL CELLS 0-5 /hpf (0-5); RED CELLS - URINE 0-5 /hpf (0-5); WHITE CELLS - URINE 0-5 /hpf (0-5)
== END 2017-02-22 05:35 | disposition home or self-care (01) ==
LOC: D.ER 03:17
PROVIDERS: Emergency Medicine
DX: R33.9 Retention of urine, unspecified (principal); J45.909 Unspecified asthma, uncomplicated; E11.9 Type 2 diabetes mellitus without complications

== ENCOUNTER 2017-07-30 11:48 | Inpatient (IN) | payer MEDICARE ==
[~2017-07-30] VITALS: Ht 180.3 cm; Wt 90.7 kg
--- NOTE | ~2017-07-30 | OP ---
PATIENT NAME: JOSE LUIS WRIGHT MEDICAL RECORD: [id number] :38 LOCATION:D[facility] ADMISSION DATE:07/30/17 SURGEON: FLAQUITA PEDRAZA MD DATE OF OPERATION: 07/31/2017 PREOPERATIVE DIAGNOSIS: Femoral neck fracture of the right hip. POSTOPERATIVE DIAGNOSIS: Femoral neck fracture of the right hip. PROCEDURE: Bipolar endoprosthetic replacement, right hip fracture. SURGEON: Flaquita Pedraza MD ANESTHESIA: General. INTRAOPERATIVE COMPLICATIONS: None. SUMMARY OF PATHOLOGIC FINDINGS: The patient has displaced femoral neck fracture consistent with preoperative diagnosis. IMPLANTS USED: Anato hip stem size 6 -326 inner diameter with a 54: 26 outer diameter. OPERATIVE SUMMARY IN DETAIL: After obtaining the appropriate preoperative orthopedic surgery, consent as well as anesthetic consultation, evaluation and clearance, the patient was brought to the operating room and placed on the operating table in supine position. After general laryngeal mask airway was administered, the patient was placed in left lateral decubitus position. All pressure points well padded to include down leg peroneal pad as well as axillary roll. The patient was held firmly to the operating table using the vacuum pack suction system. The right lower extremity and hip were then prepped and draped in routine sterile fashion. Curvilinear incision was made, taken down to the level of the IT band, was split in line with fibers of the IT band. Gluteus medius and minimus were then reflected anteriorly. The hip capsule was split in a T-type fashion and saved for later reapproximation. The hip was exposed. Femoral head was extracted from the acetabulum. All fragments were removed. Femoral neck cut was made using the femoral neck cutting guide from the Anato system. Serial and sequential reaming and broaching were done for a size 6 Anato stem. This was tamped into place. Trials were undertaken. It was felt that the -3 would be most appropriate for reduction and leg length maintenance. Hip was reduced, taken through range of motion. Intraoperative radiographs were taken and showed good position and placement of all components. The hip capsule was closed with #2 Ethibond. This was followed by reapproximation of gluteus medius minimus back to the greater trochanter in a transosseous fashion using #5 Ethibond. IT band was closed with #2 Ethibond. This was then followed by #1 Vicryl, 2-0 Vicryl, and skin beverley. Sterile dressings were applied. The patient was awakened and taken to the recovery room in stable condition. All final needle and sponge counts were correct. TRANSINT:[id number] Voice Confirmation ID: [id number] DOCUMENT ID: [id number] OPERATIVE REPORT [id number] JOSE LUIS WRIGHT MD, FLAQUITA KIDD at 1410 CC: [id number] DICTATION DATE: 08/02/17 161 DIRECTOR CALL: 08/02/17 2248 DIS IN 08/03/17 [facility] [address] [id number]
[2017-07-30 14:47] LABS: BASOPHILS 0.1 % (0-2); EOSINOPHILS 0.6 % (0-7); HEMATOCRIT 40.2 % (42.0-54.0); HEMOGLOBIN 13.8 g/dL (13.5-17.5); IMMATURE GRANULOCYTES 0.3 % (0-5); LYMPHOCYTES 8.9 % (15-50); MCH 29.9 pg (26.0-34.0); MCHC 34.3 g/dL (31.0-37.0); MCV 87.2 fL (80.0-100.0); MEAN PLATELET VOLUME 9.6 fL (7.4-10.4); MONOCYTES 5.6 % (2-11); NEUTROPHILS 84.5 % (40-80); RBC 4.61 10x6/uL (4.20-6.10); RDW 14.5 % (11.5-14.5); WBC 14.4 10x3/uL (4.8-10.8)
[2017-07-30 14:49] LABS: PLATELET COUNT 138 10x3/uL (130-400)
[2017-07-30 14:58] LABS: INR 1.33 (0.85-1.17)
[2017-07-30 15:05] LABS: ALBUMIN 3.5 g/dL (3.4-5.0); ANION GAP 16.2 mmol/L (8-16); BILIRUBIN - TOTAL 1.1 mg/dL (0.2-1.3); CALCIUM 8.7 mg/dL (8.5-10.1); CARBON DIOXIDE 22.9 mmol/L (21.0-32.0); CREATININE - SERUM 1.1 mg/dL (0.6-1.3); POTASSIUM - SERUM 4.1 mmol/L (3.5-5.1); PROTEIN - SERUM 6.5 g/dL (6.4-8.2)
[2017-07-30 16:23] VITALS: BP 195/69; BMI 27.9
[2017-07-30 16:42] VITALS: BP 195/69
[2017-07-30 20:00] VITALS: BP 188/67
[2017-07-31] VITALS (10 sets, daily range): BP systolic 156–186; BP diastolic 54–68; Ht 180.3 cm; Wt 90.7 kg
[2017-07-31 04:58] LABS: BASOPHILS 0.2 % (0-2); EOSINOPHILS 3.4 % (0-7); HEMATOCRIT 38.3 % (42.0-54.0); HEMOGLOBIN 12.9 g/dL (13.5-17.5); IMMATURE GRANULOCYTES 0.2 % (0-5); LYMPHOCYTES 18.9 % (15-50); MCH 29.6 pg (26.0-34.0); MCHC 33.7 g/dL (31.0-37.0); MCV 87.8 fL (80.0-100.0); MEAN PLATELET VOLUME 9.5 fL (7.4-10.4); MONOCYTES 9.8 % (2-11); NEUTROPHILS 67.5 % (40-80); PLATELET COUNT 136 10x3/uL (130-400); RBC 4.36 10x6/uL (4.20-6.10); RDW 14.7 % (11.5-14.5)
[2017-07-31 05:01] LABS: WBC 10.6 10x3/uL (4.8-10.8)
[2017-07-31 05:12] LABS: ANION GAP 12.9 mmol/L (8-16); CALCIUM 8.2 mg/dL (8.5-10.1); CARBON DIOXIDE 26.4 mmol/L (21.0-32.0); CREATININE - SERUM 1.1 mg/dL (0.6-1.3); POTASSIUM - SERUM 4.3 mmol/L (3.5-5.1)
[2017-07-31 05:19] LABS: INR 1.11 (0.85-1.17); PROTIME 13.9 SECONDS (11.6-15.0)
[2017-08-01 04:00] VITALS: BP 125/55
[2017-08-01 07:18] LABS: HEMATOCRIT 39.7 % (42.0-54.0); HEMOGLOBIN 13.5 g/dL (13.5-17.5); MCH 29.7 pg (26.0-34.0); MCV 87.4 fL (80.0-100.0); MEAN PLATELET VOLUME 9.1 fL (7.4-10.4); RBC 4.54 10x6/uL (4.20-6.10); RDW 14.2 % (11.5-14.5)
[2017-08-01 07:20] LABS: WBC 13.5 10x3/uL (4.8-10.8)
[2017-08-01 07:46] LABS: ANION GAP 12.9 mmol/L (8-16); CALCIUM 8.3 mg/dL (8.5-10.1); CARBON DIOXIDE 28.5 mmol/L (21.0-32.0); CREATININE - SERUM 1.3 mg/dL (0.6-1.3); POTASSIUM - SERUM 4.4 mmol/L (3.5-5.1)
[2017-08-01 08:51] VITALS: BP 187/81
[2017-08-01 09:51] LABS: APPEARANCE HAZY (CLEAR); BILIRUBIN NEGATIVE (NEGATIVE); GLUCOSE NEGATIVE (NEGATIVE); KETONE SMALL mg/dL (NEGATIVE); NITRITE NEGATIVE (NEGATIVE); PROTEIN 2+ mg/dL (NEGATIVE); UROBILINOGEN NORMAL (NORMAL)
[2017-08-01 09:52] LABS: BACTERIA FEW /hpf (NONE SEEN); COLOR YELLOW (YELLOW); EPITHELIAL CELLS OCC /hpf (0-5)
[2017-08-01] MEDS ORDERED: ZOLOFT25 MG PO (10:46)
[2017-08-01 12:01] VITALS: BP 207/84
[2017-08-01 16:04] VITALS: BP 203/79
[2017-08-01 20:00] VITALS: BP 117/78
[2017-08-02 06:17] VITALS: BP 184/86
[2017-08-02 07:59] VITALS: BP 122/70
[2017-08-02 10:46] LABS: ALBUMIN 2.6 g/dL (3.4-5.0); ANION GAP 15.6 mmol/L (8-16); BILIRUBIN - TOTAL 2.15 mg/dL (0.2-1.3); CALCIUM 7.9 mg/dL (8.5-10.1); CARBON DIOXIDE 24.1 mmol/L (21.0-32.0); CREATININE - SERUM 1.2 mg/dL (0.6-1.3); POTASSIUM - SERUM 4.7 mmol/L (3.5-5.1); PROTEIN - SERUM 5.4 g/dL (6.4-8.2)
[2017-08-02 12:14] VITALS: BP 164/60
[2017-08-02 12:30] LABS: BASOPHILS 0.2 % (0-2); EOSINOPHILS 1.4 % (0-7); HEMATOCRIT 37.5 % (42.0-54.0); HEMOGLOBIN 12.9 g/dL (13.5-17.5); IMMATURE GRANULOCYTES 0.1 % (0-5); LYMPHOCYTES 8.8 % (15-50); MCH 29.9 pg (26.0-34.0); MCHC 34.4 g/dL (31.0-37.0); MCV 86.8 fL (80.0-100.0); MEAN PLATELET VOLUME 9.9 fL (7.4-10.4); MONOCYTES 12.1 % (2-11); NEUTROPHILS 77.4 % (40-80); PLATELET COUNT 101 10x3/uL (130-400); RBC 4.32 10x6/uL (4.20-6.10); RDW 13.7 % (11.5-14.5); WBC 11.8 10x3/uL (4.8-10.8)
[2017-08-02 15:51] VITALS: BP 164/66
[2017-08-02 19:58] VITALS: BP 158/58
[2017-08-03 02:00] VITALS: BP 164/54
[2017-08-03 06:01] LABS: BASOPHILS 0.1 % (0-2); HEMATOCRIT 32.8 % (42.0-54.0); HEMOGLOBIN 11.4 g/dL (13.5-17.5); IMMATURE GRANULOCYTES 0.3 % (0-5); LYMPHOCYTES 8.6 % (15-50); MCH 29.9 pg (26.0-34.0); MCHC 34.8 g/dL (31.0-37.0); MCV 86.1 fL (80.0-100.0); MEAN PLATELET VOLUME 9.9 fL (7.4-10.4); MONOCYTES 12.2 % (2-11); NEUTROPHILS 76.8 % (40-80); PLATELET COUNT 117 10x3/uL (130-400); RBC 3.81 10x6/uL (4.20-6.10); RDW 13.8 % (11.5-14.5); WBC 11.4 10x3/uL (4.8-10.8)
[2017-08-03 06:23] LABS: ALBUMIN 2.3 g/dL (3.4-5.0); ANION GAP 14.3 mmol/L (8-16); BILIRUBIN - TOTAL 1.3 mg/dL (0.2-1.3); CARBON DIOXIDE 25.7 mmol/L (21.0-32.0); CREATININE - SERUM 1.2 mg/dL (0.6-1.3); PROTEIN - SERUM 5.9 g/dL (6.4-8.2)
[2017-08-03] MEDS ORDERED: PERCOCET 10/3251 TA1 PO (08:52)
[2017-08-03] MEDS ORDERED: BACTRIM DS TABL1 TAB PO (08:53)
[2017-08-03 09:02] VITALS: BP 175/55
== END 2017-08-03 13:00 | DRG 470 ==
LOC: D.ER 11:48 → D.EDHOLD 14:36 → D.MS 14:36
PROVIDERS: Emergency Medicine; Family Medicine; Orthopaedic Surgery
PROC: 0SRR0JZ Replacement of Right Hip Joint, Femoral Surface with Synthetic Substitute, Open Approach (ICD-10-PCS; principal; 2017-07-31 15:30)
DX: S72.001A Fracture of unspecified part of neck of right femur, initial encounter for closed fracture (principal); W01.0XXA Fall on same level from slipping, tripping and stumbling without subsequent striking against object, initial encounter; E11.65 Type 2 diabetes mellitus with hyperglycemia; I10 Essential (primary) hypertension; H91.91 Unspecified hearing loss, right ear; G47.33 Obstructive sleep apnea (adult) (pediatric); J45.909 Unspecified asthma, uncomplicated; Z87.891 Personal history of nicotine dependence; Z79.4 Long term (current) use of insulin; R50.82 Postprocedural fever

== ENCOUNTER 2018-03-22 15:11 | Inpatient (IN) | payer MEDICARE ==
[~2018-03-22] VITALS: Ht 180.3 cm; Wt 83.1 kg
--- NOTE | ~2018-03-22 | HEMODYNAMI ---
PATIENT:JOSE LUIS WRIGHT MEDICAL RECORD: [id number] : 36 LOCATION:[facility] D.2118 ADMISSION DATE: 03/23/18 Generatedon:03/26/20189:03 Patient name: JOSE LUIS WRIGHT Patient #: [id number] SSN: DO B: 1940 Date of study: 03/26/2018 Page: Of Hemodynamic Procedure Report Patient Data Patient Demographics Procedure consent was obtained First Name: JOSE LUIS Gender: Male Last Name: KYLE : 1940 Middle Initial: M Age: 77 year(s) Patient #: [id number] Race: Unknown Additional ID: [id number] Contact details [address]: [address] [place] [address] State: [place] City: [place] Zip code: [address] Admission Admission Data Admission Date: 03/23/2018 Admission Time: 10:11 Room #: 2118 Procedure Procedure Types Cath Procedure Diagnostic Procedure [facility] w/Coronaries Sedation Charges Moderate Sedation up to 15 minutes Procedure Description Procedure Date Procedure Date: 03/26/2018 Procedure Start Time: 8:45 Procedure End Time: 8:59 Procedure Staff Name Function Vinicio Harp MD Performing Physician Katerina Thomas RT Monitor Genevieve Alcantara RT Scrub Ines Lucas RN Nurse Stevan Min RN Services Rep Procedure Data Cath Procedure Fluoroscopy Diagnostic fluoroscopy Total fluoroscopy Time: 1.3 time: 1.3 min min Diagnostic fluoroscopy Total fluoroscopy dose: 913 dose: 913 mGy mGy Contrast Material Contrast Material Type Amount (ml) Isovue 300 53 Entry Location Entry Primary Successful Side Size Upsize Upsize Entry Closure Kang ccessful Closure Location (Fr) 1 (Fr) 2 (Fr) Remarks Device Remarks Radial Right 6 Fr Mechanical artery Short Compression Estimated blood loss: 5 ml Diagnostic catheters Device Type Used For End Catheter Placement DIAGNOSTIC James 110cm Multi-vessel 5Fr catheter ([id number]) Angiography Procedure Complications No complications Procedure Medications Medication Administration Route Dosage Oxygen etCO2 Nasal cannula 3 l/min Lidocaine 2% added to field 20 Heparin Flush Bag added to field 2 bags (1000units/500ml NS) 0.9% NaCl I.V. 100 ml/hr Versed I.V. 1 mg Fentanyl I.V. 50 mcg Radial Cocktail I.A. 1 syringe (Verapomil 2mg/Nitro 400mcg/Heparin 1500units) Hemodynamics Rest Heart Rate: 83 (bpm) Pressure Samples Time Site Value (mmHg) Purpose Heart Use Rate(bpm) 8:47 LV 104/1,16 Snapshot 68 Gradients Valve Time Site Site Mean SEP/DFP Peak To Heart Use 1 2 (mmHg) (sec/min) Peak Rate (mmHg) (bpm) Aortic 8:48 LV AO 52 Snapshots Pre Cath Intra NCS Post Cath Vital Signs Time Heart Resp SPO2 etCO2 NIBP (mmHg) Rhythm Pain Sedation Rate (ipm) (%) (mmHg) Status Level (bpm) 8:28:44 85 20 92 0 175/94(137) NSR 0 (11) 10(A) , No pain 8:34:00 80 25 90 29.2 158/89(137) NSR 0 (11) 10(A) , No pain 8:40:21 70 18 94 30 161/106(152) NSR 0 (11) 10(A) , No pain 8:44:39 64 36 92 16.5 143/96(120) NSR 0 (11) 10(A) , No pain 8:49:01 62 38 92 21.7 107/54(80) NSR 0 (11) 10(A) , No pain 8:54:08 66 16 91 17.2 125/76(101) NSR 0 (11) 10(A) , No pain 8:59:01 65 25 92 21.7 130/89(105) NSR 0 (11) 10(A) , No pain Medications Time Medication Route Dose Verified Delivered Reason Notes Effectiveness by by 8:26:47 Oxygen etCO2 3 l/min Vinicio Buffie used for Nasal Loyd Lucas RN procedure cannula 8:38:52 Lidocaine 2% added 20ml Vinicio Vinicio for local to vial Loyd Harp MD anesthetic field 8:38:59 Heparin Flush added 2 bags Vinicio Vinicio used for Bag to Loyd Harp MD procedure (1000units/500ml field NS) 8:39:17 0.9% NaCl I.V. 100 Vinicio Cameliaie Per ml/hr Loyd Lucas RN physician 8:39:30 Versed I.V. 1 mg Vinicio Cameliaie for sedation Loyd Lucas RN 8:39:35 Fentanyl I.V. 50 mcg Vinicio Cameliaie for sedation Loyd Lucas RN 8:47:09 Radial Cocktail I.A. 1 Vinciio Vinicio for (Verapomil syringe Loyd Harp MD vasodilation 2mg/Nitro 400mcg/Heparin 1500units) Procedure Log Time Note 7:41:11 Signed procedure consent form obtained from patient. 7:41:12 Diagnostic Cath status Elective 7:41:15 Time tracking: Regular hours (M-F 7:00 - 5:00) 7:41:20 Plan of Care:Hemodynamics will remain stable., Cardiac rhythm will remain stable., Comfort level will be maintained., Respiratory function will remain adequate., Patient/ family verbilizes understanding of procedure., Procedure tolerated without complication., Recovers from procedure without complications.. 8:06:37 Ines Lucas RN sent for patient. Start room use. 8:19:07 Patient received from Med II to CCL 2 Alert and oriented. Tansferred to table in Supine position. 8:19:09 Warm blankets applied, and janay hugger turned on for patient comfort. 8:19:09 Correct patient and procedure confirmed by team. 8:19:10 ECG and BP/O2 sat monitors applied to patient. 8:26:30 Vital chart was started 8:26:35 Baseline sample Acquired. 8:26:39 Full Disclosure recording started 8:26:47 Oxygen 3 l/min etCO2 Nasal cannula was administered by Ines Lucas RN; used for procedure; 8:26:52 H&P Date Dictated: 03/26/2018 New H&P dictated by physician.. 8:26:53 Pre-procedure instructions explained to patient. 8:26:54 Pre-op teaching completed and patient verbalized understanding. 8:27:00 Family in patients room. 8:27:01 Patient NPO since Midnight. 8:27:03 Is the patient allergic to Iodine/contrast media? No. 8:27:04 Was the patient premedicated? No 8:27:10 Is patient on blood thinner?Yes 8:27:35 patient states last had eliquis on 03/22/18 8:27:38 Patient diabetic? Yes. 8:27:39 If diabetic: On Metformin? No 8:27:44 Previous problem with sedation/anesthesia? Yes general 8:27:49 Snore? Yes 8:27:50 Sleep apnea? Yes 8:27:55 Deviated septum? No 8:27:58 Opens mouth fully? Yes 8:27:59 Sticks out tongue? Yes 8:28:03 Airway obstruction? Yes asthma 8:28:12 Dentures? Yes bridges 8:28:15 Pre procedure: right dorsailis pedis pulse 2+ Normal; easily identifiable; not easily obliterated 8:28:17 Pre procedure: left dorsailis pedis pulse 2+ Normal; easily identifiable; not easily obliterated 8:28:18 Patient pain scale 0/10 ?. 8:28:27 IV right antecubital D/C'd due to infiltration. 8:30:01 IV started by Ines Lucas RN inleft forearm with a 20 gauge IV catheter with 0.9% NaCl at KVO. 8:30:05 Lab results completed and on chart. 8:30:08 Right Radial & Right Groin area was prepped with chlora-prep and draped in sterile fashion 8:30:09 Alarms reviewed by R. N. 8:30:10 Sharps counted by scrub and verified by R.N. 8:30:13 Physician arrived 8:30:13 --------ALL STOP TIME OUT------ 8:30:14 Final Timeout: patient, procedure, and site verified with staff and physician. All members of the team are in agreement. 8:30:15 Right Radial & Right Groin site verified by team. 8:30:18 Physical assessment completed. ASA score P 2 - A patient with mild systemic disease as per Vinicio Harp MD. 8:30:22 Sedation plan: IV Moderate Sedation Medication:Versed, Fentanyl 8:38:52 Lidocaine 2% 20ml vial added to field was administered by Vinicio Harp MD; for local anesthetic; 8:38:59 Heparin Flush Bag (1000units/500ml NS) 2 bags added to field was administered by Vinicio Harp MD; used for procedure; 8:39:17 0.9% NaCl 100 ml/hr I.V. was administered by Ines Lucas RN; Per physician; 8:39:30 Versed 1 mg I.V. was administered by Ines Lucas RN; for sedation; 8:39:35 Fentanyl 50 mcg I.V. was administered by Ines Lucas RN; for sedation; 8:44:53 Use device set Radial Dx or PCI 8:44:55 ACIST Syringe (25109) opened to sterile field. 8:44:55 Medline Cath Pack ([id number]) opened to sterile field. 8:44:56 Bag Decanter (2002S) opened to sterile field. 8:44:56 DIAGNOSTIC WIRE .035 260cm J wire (226059) opened to sterile field. 8:44:57 ACIST Hand Control (75928) opened to sterile field. 8:44:57 ACIST Manifold (75254) opened to sterile field. 8:44:58 Tegaderm 4 x 4 (1626W) opened to sterile field. 8:44:58 MBrace Wrist Support ([id number]) opened to sterile field. 8:44:59 NEEDLE Cook 21G 4cm Radial (B95105) opened to sterile field. 8:45:00 SHEATH 6FR Slender (80-3125) opened to sterile field. 8:45:05 Procedure started. 8:45:13 Local anesthetic to right radial artery with Lidocaine 2% by Vinicio Harp MD.INITIAL ACCESS ONLY 8:46:12 A 6 Fr Short sheath was inserted into the Right Radial artery 8:46:52 A DIAGNOSTIC James 110cm 5Fr catheter (151835) was advanced over the wire and used for Multi-vessel Angiography. 8:47:09 Radial Cocktail (Verapomil 2mg/Nitro 400mcg/Heparin 1500units) 1 syringe I.A. was administered by Vinicio Harp MD; for vasodilation; 8:47:43 LV hemodynamics recorded. 8:47:44 LV gram done using MURPHY 8:47:47 Injector settings: Ml/sec: 5, Volume: 15, 8:48:17 EF : 20 % 8:48:56 RCA angiography performed. 8:49:18 Injector settings: Ml/sec: 3, Volume: 6, 8:49:48 LCA angiography performed. 8:49:50 Injector settings: Ml/sec: 3, Volume: 6, 8:57:10 Catheter removed. 8:57:51 TR BAND Standard ([id number]) opened to sterile field. 8:58:27 Sheath removed intact; hemostasis achieved with Mechanical Compression to the Right Radial artery. 8:58:29 Procedure ended.(Physican Out) 8:58:41 Fluoroscopy time 01.30 minutes. 8:58:45 Fluoroscopy dose: 913 mGy 8:58:45 Flurop Dose total: 913 8:58:50 Contrast amount:Isovue 300 53ml. 8:58:52 Sharps counted by scrub and verified by R.N. 8:58:55 TR band inflated with 10cc of air. 8:58:56 Insertion/operative site no bleeding no hematoma. 8:59:07 Post right radial artery:stable 8:59:08 Post Procedure Pulses reassessed and unchanged 8:59:13 Post procedure rhythm: unchanged. 8:59:18 Estimated blood loss: 5 ml 8:59:19 Post procedure instruction explained to patient.Patient verbalizes understanding. 8:59:20 Patient needs reinforcement of post procedure teaching. 8:59:28 Procedure type changed to Cath procedure, Diagnostic procedure, LHC, LHC w/Coronaries, Sedation Charges, Moderate Sedation up to 15 minutes 8:59:35 Procedure and supply charges have been captured, reviewed, submitted and are correct. 8:59:39 Procedure Complication : No complications 8:59:41 Vital chart was stopped 8:59:41 See physician's report for complete and final results. 8:59:44 Report given to [facility]. 8:59:47 Patient transfered to [facility] with Stretcher. 8:59:49 Procedure ended. 8:59:49 Full Disclosure recording stopped 8:59:53 End room use (Document Last) Device Usage Item Name Manufacture Quantity Catalog Hospital Part Current Minimal Lot# / Number Charge Number Stock Stock Serial# Code ACIST Acist 1 65300 136643 827668 929005 20 Syringe TheFormTool (36133) As Seen on TV Inc Medline Medline 1 [id number] 086356 30498 283935 5 Cath Pack ([id number]) Bag Microtek 1 165574 84951 205661 5 Dec[employer]ag [employer] () DIAGNOSTIC [facility] 1 327435 524307 063844 115429 30 WIRE .035 260cm J wire (866160) ACIST Hand Acist 1 61085 254114 177394 595832 5 Control Medical (55236) Systems Inc ACIST Acist 1 15321 389044 405080 905830 5 Manifold Medical (93693) Systems Inc Tegaderm 4 3M 1 1626W 460796 694083 233391 5 x 4 (1626W) MBrace Advanced 1 140-0250-00 291144 40011 101817 5 Wrist Vascular Support Dynamics ([id number]) NEEDLE Cook Cook Medical 1 P79687 230595 573476 835647 5 21G 4cm Radial (H50301) SHEATH 6FR Terumo 1 [id number] 913306 303759 216951 5 Slender (801060) DIAGNOSTIC Terumo 1 50-3755 848041 074656 574057 5 James 110cm 5Fr catheter (075198) TR BAND Terumo 1 [id number] 931536 106936 893527 40 Standard ([id number]) Signature Audit [place] Stage Time Signature Unsigned Intra-Procedure 03/26/2018 Katerina Thomas 9:02:59 AM RT(R) Signatures Monitor : Katerina Thomas RT Signature : Date : Time : [facility] [address] [place] [address]
--- NOTE | ~2018-03-22 | HEMODYNAMI ---
PATIENT:JOSE LUIS WRIGHT MEDICAL RECORD: [id number] : 36 LOCATION[id number] ADMISSION DATE: 03/23/18 Generatedon:03/29/201816:18 Patient name: JOSE LUIS WRIGHT Patient #: [id number] SSN: DO B: 1940 Date of study: 03/29/2018 Page: Of Hemodynamic Procedure Report Patient Data Patient Demographics Procedure consent was obtained First Name: JOSE LUIS Gender: Male Last Name: KYLE : 1940 Middle Initial: M Age: 77 year(s) Patient #: [id number] Race: Unknown Additional ID: [id number] Contact details [address]: [address] [place] [address] State: [place] City: [place] Zip code: [address] Past Medical History Allergies: No known allergies Admission Admission Data Admission Date: 03/23/2018 Admission Time: 10:11 Room #: D.2118 Height (in.): 71 BSA: 2.12 (m2) Height (cm.): 180.34 BMI: 28.12 (kg/m2) Weight (lbs.): 201.59 Weight (kg.): 91.44 Lab Results Lab Result Date: 03/29/2018 Lab Result Time: 0:00 Biochemistry Name Units Result Min Max BUN mg/dl 23 --(----)-* 7 18 Creatinine mg/dl 1.2 --(---*)-- 0.6 1.3 CBC Name Units Result Min Max Hemoglobin g/dl 13.1 -*(----)-- 13.5 17.5 Procedure Procedure Types Cath Procedure Diagnostic Procedure Intra-Aortic Balloon Pump Procedure Description Procedure Date Procedure Date: 03/29/2018 Procedure Start Time: 15:57 Procedure End Time: 16:13 Procedure Staff Name Function Srinath Eubanks MD Performing Physician Stevan Min RN Nurse Radha Flores RT Scrub Genevieve Alcantara RT Monitor Procedure Data Cath Procedure Fluoroscopy Diagnostic fluoroscopy Total fluoroscopy Time: 1.8 time: 1.8 min min Diagnostic fluoroscopy Total fluoroscopy dose: 112 dose: 112 mGy mGy Entry Location Entry Primary Successful Side Size Upsize Upsize Entry Closure Succes sful Closure Location (Fr) 1 (Fr) 2 (Fr) Remarks Device Remarks Femoral Left 7 Fr Sheath SHEATH artery Short sutured AND IABP in SUTURED place Estimated blood loss: 5 ml Procedure Complications No complications Procedure Medications Medication Administration Route Dosage Oxygen etCO2 Nasal cannula 2 l/min Heparin Flush Bag added to field 3 bags (1000units/500ml NS) 0.9% NaCl I.V. 100 ml/hr Fentanyl I.V. 50 mcg Versed I.V. 1 mg Fentanyl I.V. 50 mcg Versed I.V. 1 mg Heparin Drip I.V. drip 1000 units/hr (59923ccxtm/250 D5W) Hemodynamics Rest BSA: 2.12 (m2) HGB: 13.1 (g/dl) O2 Consumption: Estimated: 235.09 (ml/min) O2 Co nsumption indexed: Estimated:110.89 (ml/min/m) Heart Rate: 61 (bpm) Snapshots Pre Cath Intra NCS Post Cath Vital Signs Time Heart Resp SPO2 etCO2 NIBP (mmHg) Rhythm Pain Sedation Rate (ipm) (%) (mmHg) Status Level (bpm) 15:50:47 68 16 96 0 164/78(135) NSR 0 (11) 10(A) , No pain 15:55:09 71 17 91 0 159/81(122) NSR 0 (11) 10(A) , No pain 15:59:31 68 17 97 0 158/78(126) NSR 0 (11) 10(A) , No pain 16:03:56 59 16 96 0 156/71(122) NSR 0 (11) 10(A) , No pain 16:08:02 57 16 95 0 125/61(98) NSR 0 (11) 10(A) , No pain 16:12:12 66 17 96 0 121/48(109) NSR 0 (11) 10(A) , No pain 16:17:10 58 18 95 0 Measuring NSR 0 (11) 10(A) , No pain Medications Time Medication Route Dose Verified Delivered Reason No deja Effectiveness by by 15:40:07 Oxygen etCO2 2 l/min Srinath Stevan Per physician Nasal [facility] Eliel Min RN cannula 15:44:25 Heparin Flush added 3 bags Srinath Calles used for Bag to [facility] Eliel Min RN procedure (1000units/500ml field NS) 15:44:35 0.9% NaCl I.V. 100 Srinath Calles Per physician ml/hr [facility] Eliel Min RN, MD 15:53:14 Fentanyl I.V. 50 mcg Srinath Calles for sedation St Eliel Min RN, MD 15:53:21 Versed I.V. 1 mg Srinath Calles for sedation [facility] Eliel Min RN, MD 16:00:20 Fentanyl I.V. 50 mcg Srinath Calles for sedation [facility] Eliel Min RN, MD 16:00:24 Versed I.V. 1 mg Srinath Calles for sedation St Eliel Min RN, MD 16:09:42 Heparin Drip I.V. 1000 Srinath Calles for (83367rnugt/250 drip units/hr [facility] Eliel Min RN anticoagulation D5W) Procedure Log Time Note 15:12:58 Stevan Min RN sent for patient. Start room use. 15:21:47 Patient Height : 71 inches 15:21:54 Patient Weight : 201.59 lbs 15:22:22 Lab Result : BUN 23 mg/dl 15:22:22 Lab Result : Hemoglobin 13.1 g/dl 15:22:22 Lab Result : Creatinine 1.2 mg/dl 15:22:55 Diagnostic Cath status Elective 15:22:59 Time tracking: Regular hours (M-F 7:00 - 5:00) 15:23:06 Plan of Care:Hemodynamics will remain stable., Cardiac rhythm will remain stable., Comfort level will be maintained., Respiratory function will remain adequate., Patient/ family verbilizes understanding of procedure., Procedure tolerated without complication., Recovers from procedure without complications.. 15:23:13 Patient received from Med II to CCL 2 Alert and oriented. Tansferred to table in Supine position. 15:40:07 Oxygen 2 l/min etCO2 Nasal cannula was administered by Stevan Min RN; Per physician; 15:44:25 Heparin Flush Bag (1000units/500ml NS) 3 bags added to field was administered by Stevan Min RN; used for procedure; 15:44:35 0.9% NaCl 100 ml/hr I.V. was administered by Stevan Min RN; Per physician; 15:44:44 Vital chart was started 15:49:15 Warm blankets applied, and janay hugger turned on for patient comfort. 15:49:16 Correct patient and procedure confirmed by team. 15:49:17 Signed procedure consent form obtained from patient. 15:49:18 ECG and BP/O2 sat monitors applied to patient. 15:49:30 Baseline sample Acquired. 15:49:30 Vital chart was stopped 15:49:31 Vital chart was started 15:49:34 Rhythm: sinus rhythm 15:49:35 Full Disclosure recording started 15:49:36 Pre-procedure instructions explained to patient. 15:49:36 Pre-op teaching completed and patient verbalized understanding. 15:49:38 Family unavailable. 15:49:39 Patient NPO since Midnight. 15:49:47 Patient allergic to No known allergies 15:49:49 Is patient on blood thinner?Yes 15:50:00 LAST DOSE OF ELIQUIS 1.3 15:50:01 Patient diabetic? Yes. 15:50:06 IDDM 15:50:17 Previous problem with sedation/anesthesia? Yes GENERAL ANESTHESIA 15:50:19 Snore? Yes 15:50:20 Sleep apnea? Yes 15:50:23 Deviated septum? No 15:50:23 Opens mouth fully? Yes 15:50:24 Sticks out tongue? Yes 15:50:28 Airway obstruction? Yes ASTHMA 15:50:31 Dentures? Yes BRIDGE 15:50:34 Pre procedure: left dorsailis pedis pulse 2+ Normal; easily identifiable; not easily obliterated 15:50:37 Patient pain scale 0/10 ?. 15:50:47 IV patent on arrival in left antecubital with 0.9% NaCl at [facility]. 15:50:54 Left groin area was prepped with chlora-prep and draped in sterile fashion 15:50:58 Lab results completed and on chart. 15:51:02 Alarms reviewed by R. N. 15:51:03 Sharps counted by scrub and verified by R.N. 15:51:34 Use device set CATH PACK 15:51:35 ACIST Syringe (82639) opened to sterile field. 15:51:36 ACIST Hand Control (37738) opened to sterile field. 15:51:36 ACIST Manifold (86194) opened to sterile field. 15:51:36 Medline Cath Pack ([id number]) opened to sterile field. 15:51:37 Bag Decanter (2002) opened to sterile field. 15:51:37 DIAGNOSTIC WIRE .035 260cm J wire (351833) opened to sterile field. 15:51:54 SHEATH 7FR [place] (OZK253) opened to sterile field. 15:51:55 IABP 40cm balloon catheter ([id number]) opened to sterile field. 15:52:40 --------ALL STOP TIME OUT------ 15:52:40 Final Timeout: patient, procedure, and site verified with staff and physician. All members of the team are in agreement. 15:52:42 Left groin site verified by team. 15:52:44 Physical assessment completed. ASA score P 2 - A patient with mild systemic disease as per Srinath Eubanks MD. 15:52:47 Sedation plan: IV Moderate Sedation Medication:Versed, Fentanyl 15:53:14 Fentanyl 50 mcg I.V. was administered by Stevan Min RN; for sedation; 15:53:21 Versed 1 mg I.V. was administered by Stevan Min RN; for sedation; 15:57:01 Procedure started. 15:57:28 Local anesthetic to left femerol artery with Lidocaine 2% by Srinath Eubanks MD.INITIAL ACCESS ONLY 15:58:22 A 7 Fr Short sheath was inserted into the Left Femoral artery 16:00:20 Fentanyl 50 mcg I.V. was administered by Stevan Min RN; for sedation; 16:00:24 Versed 1 mg I.V. was administered by Stevan Min RN; for sedation; 16:03:56 40cc IABP inserted into the LFA . 16:03:59 Augmentation: 1:1 per physician. 16:04:00 Trigger: Pressure 16:07:47 Augmenter BP: 140-149 16:07:59 Procedure ended.(Physican Out) 16:09:06 Sheath removed intact; hemostasis achieved with Sheath sutured in place to the Left Femoral artery. 16:09:[address] 16:09:30 Fluoroscopy time 01.80 minutes. 16::33 Fluoroscopy dose: 112 mGy 16:09:33 Flurop Dose total: 112 16:09:38 Post-op/insertion site Left Femoral artery dressed using a 4 x 4 and Tegaderm. 16:09:42 Heparin Drip (65596xzukf/250 D5W) 1000 units/hr I.V. drip was administered by Stevan Min RN; for anticoagulation; 16:09:43 Post-procedure physical assessment completed. ASA score P 2 - A patient with mild systemic disease as per Srinath Eubanks MD. 16:09:48 Post procedure rhythm: sinus bradycardia 16:09:52 Estimated blood loss: 5 ml 16:09:53 Post procedure instruction explained to patient.Patient verbalizes understanding. 16:09:53 Patient needs reinforcement of post procedure teaching. 16:11:21 Procedure and supply charges have been captured, reviewed, submitted and are correct. 16:11:23 Procedure Complication : No complications 16:11:29 See physician's report for complete and final results. 16:11:32 Report given to CVICU. 16:11:35 Patient transfered to CVICU with Bed. 16:13:31 Procedure ended. 16:13:31 Full Disclosure recording stopped 16:13:34 End room use (Document Last) 16:18:26 Vital chart was stopped Device Usage Item Name Manufacture Quantity Catalog Number [facility] Minimal Lot# / Charge Number Stock Stock Serial# Code ACIST Syringe Acist 1 99705 220987 537810 [id number] 20 (87019) [employer] ACIST Hand Acist 1 82277 944052 569484 901834 5 Control (37812) [employer] ACIST Manifold Acist 1 05040 961449 929917 869744 5 (22151) [employer] Medline Cath Medline 1 [id number] 629211 51016 745503 5 Pack ([id number]) Bag Decanter Microtek 1 2001S 975609 48592 744633 5 () [employer] Inc. DIAGNOSTIC WIRE [facility] [place] 1 844929 891332 753995 808904 30 .035 260cm J wire (589212) SHEATH 7FR Terumo 1 GPI100 831977 864577 221281 5 [place] (ADA229) IABP 40cm [facility] 1 [id number] 168385 844115 392505 1 balloon [employer] catheter (249271) ([id number]) Signature Audit [place] Stage Time Signature Unsigned Intra-Procedure 03/29/2018 Genevieve Alcantara 4:18:23 PM RT(R) Signatures Monitor : Genevieve Alcantara Signature : RT Date : Time : [address] [address]
[~2018-03-22 15:11] MED LIST changes: +BACTRIM DS TABL1 TAB PO; +PERCOCET 10/3251 TA1 PO; +ZOLOFT25 MG PO
[2018-03-22 15:50] LABS: BASOPHILS 0.4 % (0-2); EOSINOPHILS 1.8 % (0-7); HEMATOCRIT 41.4 % (42.0-54.0); HEMOGLOBIN 13.9 g/dL (13.5-17.5); IMMATURE GRANULOCYTES 0.2 % (0-5); LYMPHOCYTES 14.8 % (15-50); MCH 30.4 pg (26.0-34.0); MCHC 33.6 g/dL (31.0-37.0); MCV 90.6 fL (80.0-100.0); MEAN PLATELET VOLUME 10.6 fL (7.4-10.4); MONOCYTES 8.1 % (2-11); NEUTROPHILS 74.7 % (40-80); PLATELET COUNT 193 10x3/uL (130-400); RBC 4.57 10x6/uL (4.20-6.10); RDW 14.3 % (11.5-14.5); WBC 9.8 10x3/uL (4.8-10.8)
[2018-03-22 15:58] LABS: APTT 27.1 SECONDS (22.8-39.4); INR 1.26 (0.85-1.17); PROTIME 15.3 SECONDS (11.6-15.0)
[2018-03-22 16:04] LABS: ALBUMIN 3.6 g/dL (3.4-5.0); ALKALINE PHOSPHATASE 63 U/L (46-116); ALT (SGPT) 46 U/L (10-68); BILIRUBIN - TOTAL 1.35 mg/dL (0.2-1.3); CALC OSMOLALITY 293 mosm/kg (275-300); CALCIUM 9.6 mg/dL (8.5-10.1); CHLORIDE - SERUM 108 mmol/L (98-107); CREATININE - SERUM 1.2 mg/dL (0.6-1.3); GLUCOSE 186 mg/dL (74-106); SODIUM 141 mmol/L (136-145); UREA NITROGEN 34 mg/dL (7-18); eGFR NON AFRICAN AMERICAN 62 mL/min (90-120)
[2018-03-22 16:08] LABS: POTASSIUM - SERUM 5.1 mmol/L (3.5-5.1)
[2018-03-22 16:19] LABS: CKMB 10.9 U/L (0.0-3.6); CREATINE KINASE 245 UL (21-232); MAGNESIUM - SERUM 1.9 mg/dL (1.8-2.4)
[2018-03-22 16:21] LABS: TROPONIN-I 0.219 ng/mL (0.000-0.060)
[2018-03-22 18:25] VITALS: BP 136/74
[2018-03-22 20:00] VITALS: BP 130/80
[2018-03-22 20:12] VITALS: BP 171/78
[2018-03-22 20:25] VITALS: BP 148/83
[2018-03-23] VITALS: BP 149/80
[2018-03-23] MEDS ORDERED: ALBUTEROL SULF8.5 GM INH (00:17)
[2018-03-23 04:00] VITALS: BP 163/74
[2018-03-23 07:45] VITALS: BP 236/96
[2018-03-23 12:11] VITALS: BMI 29.3
[2018-03-23 14:22] VITALS: Ht 180.3 cm; Wt 83.1 kg
[2018-03-23 15:50] LABS: MAGNESIUM - SERUM 2.1 mg/dL (1.8-2.4); T4 THYROXIN - FREE 1.01 ng/dL (0.76-1.46); THYROID STIMULATING HORMONE 2.49 uIU/mL (0.36-3.74)
[2018-03-23] MEDS ORDERED: TERAZOSIN HCL2 MG PO (19:11)
[2018-03-23] MEDS ORDERED: CARDIZEM60 MG PO (19:12)
[2018-03-23 21:08] VITALS: BP 133/63
[2018-03-24 09:01] VITALS: BP 142/92
[2018-03-24 10:55] LABS: BASOPHILS 0.1 % (0-2); EOSINOPHILS 0.5 % (0-7); HEMATOCRIT 42.8 % (42.0-54.0); HEMOGLOBIN 14.5 g/dL (13.5-17.5); IMMATURE GRANULOCYTES 0.2 % (0-5); LYMPHOCYTES 7.7 % (15-50); MCH 30.7 pg (26.0-34.0); MCHC 33.9 g/dL (31.0-37.0); MCV 90.5 fL (80.0-100.0); MEAN PLATELET VOLUME 11.1 fL (7.4-10.4); MONOCYTES 9.5 % (2-11); PLATELET COUNT 196 10x3/uL (130-400); RBC 4.73 10x6/uL (4.20-6.10); RDW 14.1 % (11.5-14.5)
[2018-03-24 10:58] LABS: WBC 16.7 10x3/uL (4.8-10.8)
[2018-03-24 10:59] LABS: ANION GAP 18.1 mmol/L (8-16); CALCIUM 8.8 mg/dL (8.5-10.1); CARBON DIOXIDE 25.9 mmol/L (21.0-32.0)
[2018-03-24 14:03] VITALS: BP 125/63
[2018-03-24 17:44] VITALS: BP 128/65
[2018-03-24 20:23] VITALS: BP 148/50
[2018-03-25 01:46] VITALS: BP 140/75
[2018-03-25 05:34] VITALS: BP 127/59
[2018-03-25 06:26] LABS: BASOPHILS 0.2 % (0-2); HEMOGLOBIN 13.7 g/dL (13.5-17.5); IMMATURE GRANULOCYTES 0.2 % (0-5); LYMPHOCYTES 12.4 % (15-50); MCH 30.3 pg (26.0-34.0); MCHC 34.3 g/dL (31.0-37.0); MEAN PLATELET VOLUME 10.6 fL (7.4-10.4); MONOCYTES 12.7 % (2-11); NEUTROPHILS 73.5 % (40-80); PLATELET COUNT 186 10x3/uL (130-400); RBC 4.52 10x6/uL (4.20-6.10); RDW 13.6 % (11.5-14.5)
[2018-03-25 06:32] LABS: MCV 88.5 fL (80.0-100.0); WBC 12.2 10x3/uL (4.8-10.8)
[2018-03-25 06:38] LABS: ANION GAP 13.7 mmol/L (8-16); CALCIUM 8.6 mg/dL (8.5-10.1); CARBON DIOXIDE 28.5 mmol/L (21.0-32.0); CREATININE - SERUM 1.7 mg/dL (0.6-1.3); POTASSIUM - SERUM 3.2 mmol/L (3.5-5.1)
[2018-03-25 08:31] VITALS: BP 135/65
[2018-03-25 11:38] VITALS: BP 165/68
[2018-03-25 16:28] VITALS: BP 139/70
[2018-03-25 20:00] VITALS: BP 150/66
[2018-03-26] VITALS: BP 169/70
[2018-03-26 04:00] VITALS: BP 147/72
[2018-03-26 06:58] LABS: BASOPHILS 0.2 % (0-2); HEMATOCRIT 39.7 % (42.0-54.0); HEMOGLOBIN 13.7 g/dL (13.5-17.5); IMMATURE GRANULOCYTES 0.2 % (0-5); LYMPHOCYTES 10.7 % (15-50); MCH 30.4 pg (26.0-34.0); MCHC 34.5 g/dL (31.0-37.0); MCV 88.2 fL (80.0-100.0); MEAN PLATELET VOLUME 10.3 fL (7.4-10.4); MONOCYTES 11.5 % (2-11); NEUTROPHILS 76.4 % (40-80); PLATELET COUNT 175 10x3/uL (130-400); RDW 13.3 % (11.5-14.5)
[2018-03-26 07:10] LABS: CALCIUM 8.1 mg/dL (8.5-10.1); CARBON DIOXIDE 28.3 mmol/L (21.0-32.0); CREATININE - SERUM 1.6 mg/dL (0.6-1.3); POTASSIUM - SERUM 3.3 mmol/L (3.5-5.1)
[2018-03-26 08:41] VITALS: BP 167/78
[2018-03-26 11:43] VITALS: BP 147/67
[2018-03-26 16:43] VITALS: BP 135/75
[2018-03-26 20:00] VITALS: BP 147/60
[2018-03-27] VITALS: BP 156/68
[2018-03-27 04:00] VITALS: BP 145/50
[2018-03-27 06:07] LABS: BASOPHILS 0.3 % (0-2); EOSINOPHILS 1.8 % (0-7); HEMATOCRIT 37.8 % (42.0-54.0); HEMOGLOBIN 12.7 g/dL (13.5-17.5); IMMATURE GRANULOCYTES 0.2 % (0-5); LYMPHOCYTES 11.7 % (15-50); MCHC 33.6 g/dL (31.0-37.0); MCV 89.2 fL (80.0-100.0); MEAN PLATELET VOLUME 10.4 fL (7.4-10.4); MONOCYTES 11.7 % (2-11); NEUTROPHILS 74.3 % (40-80); PLATELET COUNT 161 10x3/uL (130-400); RBC 4.24 10x6/uL (4.20-6.10); RDW 13.6 % (11.5-14.5); WBC 10.8 10x3/uL (4.8-10.8)
[2018-03-27 06:28] LABS: ANION GAP 12.7 mmol/L (8-16); CALCIUM 7.9 mg/dL (8.5-10.1); CARBON DIOXIDE 29.8 mmol/L (21.0-32.0); CREATININE - SERUM 1.3 mg/dL (0.6-1.3); POTASSIUM - SERUM 3.5 mmol/L (3.5-5.1)
[2018-03-27 08:24] VITALS: BP 123/55
[2018-03-27 11:09] VITALS: BP 124/64
[2018-03-27 15:39] VITALS: BP 154/71
[2018-03-27 19:00] VITALS: BP 143/51
[2018-03-28] VITALS: BP 177/82
[2018-03-28 04:00] VITALS: BP 134/64
[2018-03-28 05:50] LABS: BASOPHILS 0.2 % (0-2); EOSINOPHILS 1.9 % (0-7); HEMATOCRIT 38.9 % (42.0-54.0); HEMOGLOBIN 12.9 g/dL (13.5-17.5); IMMATURE GRANULOCYTES 0.2 % (0-5); MCH 29.9 pg (26.0-34.0); MCHC 33.2 g/dL (31.0-37.0); MCV 90.3 fL (80.0-100.0); MEAN PLATELET VOLUME 10.6 fL (7.4-10.4); MONOCYTES 10.6 % (2-11); NEUTROPHILS 76.1 % (40-80); PLATELET COUNT 169 10x3/uL (130-400); RBC 4.31 10x6/uL (4.20-6.10); RDW 13.4 % (11.5-14.5)
[2018-03-28 05:51] LABS: ANION GAP 10.6 mmol/L (8-16); CALCIUM 8.1 mg/dL (8.5-10.1); CARBON DIOXIDE 29.1 mmol/L (21.0-32.0); CREATININE - SERUM 1.3 mg/dL (0.6-1.3); POTASSIUM - SERUM 3.7 mmol/L (3.5-5.1)
[2018-03-28 07:00] VITALS: BP 150/62
[2018-03-28 11:00] VITALS: BP 150/72
[2018-03-28 13:59] LABS: APTT 31.3 SECONDS (22.8-39.4); INR 1.15 (0.85-1.17); PROTIME 14.2 SECONDS (11.6-15.0)
[2018-03-28 14:21] LABS: ANION GAP 13.4 mmol/L (8-16); BILIRUBIN - TOTAL 1.6 mg/dL (0.2-1.3); CALCIUM 7.9 mg/dL (8.5-10.1); CARBON DIOXIDE 28.6 mmol/L (21.0-32.0); CREATININE - SERUM 1.3 mg/dL (0.6-1.3); PROTEIN - SERUM 5.8 g/dL (6.4-8.2); T4 THYROXIN - FREE 1.11 ng/dL (0.76-1.46); THYROID STIMULATING HORMONE 2.17 uIU/mL (0.36-3.74); URIC ACID 3.8 mg/dL (2.6-7.2)
[2018-03-28 16:10] LABS: APPEARANCE HAZY (CLEAR); BILIRUBIN NEGATIVE (NEGATIVE); COLOR YELLOW (YELLOW); GLUCOSE NEGATIVE (NEGATIVE); KETONE NEGATIVE (NEGATIVE); NITRITE NEGATIVE (NEGATIVE); PROTEIN TRACE mg/dL (NEGATIVE); SPECIFIC GRAVITY 1.015 (1.005-1.020); UROBILINOGEN NORMAL (NORMAL)
[2018-03-28 16:14] LABS: BACTERIA MANY /hpf (NONE SEEN); RED CELLS - URINE 25-50 /hpf (0-5)
--- NOTE | 2018-03-28 18:06 | MORECARE ---
CASE MANAGEMENT DISCHARGE SUMMARY PATIENT: JOSE LUIS WRIGHT UNIT: [id number] ADM DATE: 03/23/18 AGE: 77 : 38 SEX: M ROOM/BED: D.2118 AUTHOR: BLANQUITA ACOSTA PHYSICIAN: REFERRING PHYSICIAN: TIARA FERNANDEZ MD DATE OF SERVICE: 03/28/18 Discharge Plan Patient Name: JOSE LUIS WRIGHT [facility] : 1940 Planned Disposition: Home Anticipated Discharge Date: 04/02/18 Discharge Date: Expected LOS: 10 Initial Reviewer: [email or web address] Initial Review Date: 03/28/2018 Generated: 03/28/18 7:06 pm DCPIA - Discharge Planning Initial Assessment Updated by [email or web address]: Rosalind Coelho on 03/28/18 6:04 pm * Is the patient Alert and Oriented? Yes * How many steps to enter\exit or inside your home? * PCP DR. ANSARI * Pharmacy [facility] * Preadmission Environment Home with Family * ADLs Independent * Equipment Glucometer Shower Chair Walker * List name and contact numbers for known caregivers / representatives who currently or will assist patient after discharge: FANY (SPOUSE) [phone] H [phone] * Verbal permission to speak to the caregivers and representatives has been obtained from the patient. Yes * Community resources currently utilized None * Additional services required to return to the preadmission environment? Yes * Can the patient safely return to the preadmission environment? Yes * Has this patient been hospitalized within the prior 30 days at any hospital? No Patient Name: JOSE LUIS WRIGHT Page [phone] at 1806 All edits/amendments must be made on the electronic document DICTATION DATE: 03/28/181805 DIGITAL CONTROLS TECHNICAL OFFICER: VETO 03/28/181805 RPT#: [id number] DC DATE: STATUS: ADM IN [facility] [address] [place] [address] END OF REPORT
--- NOTE | 2018-03-28 18:14 | MORECARE ---
CASE MANAGEMENT DISCHARGE SUMMARY PATIENT: JOSE LUIS WRIGHT UNIT: [id number] ADM DATE: 03/23/18 AGE: 77 : 38 SEX: M ROOM/BED: D.2118 AUTHOR: DAVE,DOC PHYSICIAN: REFERRING PHYSICIAN: TIARA FERNANDEZ MD DATE OF SERVICE: 03/28/18 Discharge Plan Patient Name: JOSE LUIS WRIGHT Facility: [facility]:[place] : 1940 Planned Disposition: Home Anticipated Discharge Date: 04/02/18 Discharge Date: Expected LOS: 10 Initial Reviewer: [email or web address] Initial Review Date: 03/28/2018 Generated: 03/28/18 7:14 pm Comments DCP- Discharge Planning Updated by [email or web address]: Rosalind Coelho on 03/28/18 5:[address] Patient Name: JOSE LUIS WRIGHT Admission Status: ER Accout number: [id number] Admission Date: 03-23-2018 : 1940 Admission Diagnosis: Attending: ALAYNA FERNANDEZ Current LOS: 5 Anticipated DC Date: 04-02-2018 Planned Disposition: Home Primary Insurance: [facility] [employer] [employer] Discharge Planning Comments: CM MET WITH PATIENT REGARDING D/C NEEDS AND PLANS. PATIENT STATED HE LIVES WITH HIS (FANY) AND SHE WILL DRIVE HIM HOME AT DISCHARGE. PATIENT STATED HE HAS ONE STEP TO ENTER HOME AND NO STAIRS INSIDE. PATIENT IS INDEPENDENT WITH HIS CARE AND HAS A WALKER, SHOWER CHAIR, GLUCOMETER AT HOME. PATIENT IS HAVING SURGERY THIS WEEK AND WANTS TO SEE IF HE NEEDS HOME HEALTH AT THAT TIME AND WILL DISCUSS WITH HIS . CM WILL CONTINUE TO FOLLOW PATIENT WITH D/C NEEDS AND PLANS. PCP DR. COTY PEÑA AT [facility] FANY (SPOUSE) C [phone] H [phone] Boilermaker Mechanic: Rosalind Coelho DCPIA - Discharge Planning Initial Assessment Updated by [email or web address]: Rosalind Coelho on 03/28/18 6:04 pm * Is the patient Alert and Oriented? Yes * How many steps to enter\exit or inside your home? * PCP DR. ANSARI * Pharmacy [facility] * Preadmission Environment Home with Family * ADLs Independent * Equipment Glucometer Shower Chair Walker * List name and contact numbers for known caregivers / representatives who currently or will assist patient after discharge: FANY (SPOUSE) C [phone] H [phone] * Verbal permission to speak to the caregivers and representatives has been obtained from the patient. Yes * Community resources currently utilized None * Additional services required to return to the preadmission environment? Yes * Can the patient safely return to the preadmission environment? Yes * Has this patient been hospitalized within the prior 30 days at any hospital? No Last DP export: 03/28/18 5:06 pm Patient Name: JOSE LUIS WRIGHT Page [phone] at 1814 All edits/amendments must be made on the electronic document DICTATION DATE: 03/28/181812 PARTS ORDER AND STOCK CLERK: VETO 03/28/181812 RPT#: [id number] DC DATE: STATUS: ADM IN [facility] [address] [place] [address] END OF REPORT
[2018-03-28 18:55] VITALS: BP 106/55
[2018-03-28 20:00] VITALS: BP 152/76
[2018-03-29] VITALS (12 sets, daily range): BP systolic 124–155; BP diastolic 54–91
[2018-03-29 07:02] LABS: HEMATOCRIT 38.9 % (42.0-54.0); HEMOGLOBIN 13.1 g/dL (13.5-17.5); LYMPHOCYTES 8.2 % (15-50); MCH 30.4 pg (26.0-34.0); MCHC 33.7 g/dL (31.0-37.0); MCV 90.3 fL (80.0-100.0); MEAN PLATELET VOLUME 10.1 fL (7.4-10.4); NEUTROPHILS 77.2 % (40-80); PLATELET COUNT 156 10x3/uL (130-400); RBC 4.31 10x6/uL (4.20-6.10); RDW 13.4 % (11.5-14.5); WBC 11.3 10x3/uL (4.8-10.8)
[2018-03-29 07:03] LABS: ANION GAP 12.9 mmol/L (8-16); CALCIUM 8.1 mg/dL (8.5-10.1); CREATININE - SERUM 1.2 mg/dL (0.6-1.3); POTASSIUM - SERUM 3.9 mmol/L (3.5-5.1)
[2018-03-29 20:21] LABS: BASOPHILS 0.2 % (0-2); EOSINOPHILS 3.5 % (0-7); HEMATOCRIT 38.2 % (42.0-54.0); HEMOGLOBIN 12.6 g/dL (13.5-17.5); IMMATURE GRANULOCYTES 0.2 % (0-5); LYMPHOCYTES 13.2 % (15-50); MCH 29.9 pg (26.0-34.0); MCV 90.5 fL (80.0-100.0); MEAN PLATELET VOLUME 10.3 fL (7.4-10.4); MONOCYTES 11.6 % (2-11); NEUTROPHILS 71.3 % (40-80); PLATELET COUNT 136 10x3/uL (130-400); RBC 4.22 10x6/uL (4.20-6.10); RDW 13.3 % (11.5-14.5); WBC 9.4 10x3/uL (4.8-10.8)
[2018-03-29 20:55] LABS: ALBUMIN 2.8 g/dL (3.4-5.0); ANION GAP 13.6 mmol/L (8-16); BILIRUBIN - TOTAL 1.62 mg/dL (0.2-1.3); CALCIUM 8.1 mg/dL (8.5-10.1); CARBON DIOXIDE 28.2 mmol/L (21.0-32.0); CREATININE - SERUM 1.2 mg/dL (0.6-1.3); MAGNESIUM - SERUM 2.1 mg/dL (1.8-2.4); POTASSIUM - SERUM 3.8 mmol/L (3.5-5.1); PROTEIN - SERUM 6.2 g/dL (6.4-8.2)
[2018-03-30] VITALS (40 sets, daily range): BP systolic 74–166; BP diastolic 32–102
[2018-03-30 06:08] LABS: BASOPHILS 0.4 % (0-2); EOSINOPHILS 2.6 % (0-7); HEMATOCRIT 40.1 % (42.0-54.0); HEMOGLOBIN 13.5 g/dL (13.5-17.5); IMMATURE GRANULOCYTES 0.1 % (0-5); LYMPHOCYTES 8.7 % (15-50); MCH 30.3 pg (26.0-34.0); MCHC 33.7 g/dL (31.0-37.0); MCV 89.9 fL (80.0-100.0); MEAN PLATELET VOLUME 10.1 fL (7.4-10.4); MONOCYTES 11.7 % (2-11); NEUTROPHILS 76.5 % (40-80); PLATELET COUNT 135 10x3/uL (130-400); RBC 4.46 10x6/uL (4.20-6.10); RDW 13.2 % (11.5-14.5)
[2018-03-30 06:23] LABS: ANION GAP 12.9 mmol/L (8-16); BILIRUBIN - TOTAL 1.97 mg/dL (0.2-1.3); CALCIUM 8.4 mg/dL (8.5-10.1); CARBON DIOXIDE 27.2 mmol/L (21.0-32.0); CREATININE - SERUM 1.2 mg/dL (0.6-1.3); POTASSIUM - SERUM 4.1 mmol/L (3.5-5.1); PROTEIN - SERUM 6.5 g/dL (6.4-8.2)
[2018-03-30 22:47] LABS: ALBUMIN 2.4 g/dL (3.4-5.0); BILIRUBIN - TOTAL 2.12 mg/dL (0.2-1.3); CALCIUM 7.7 mg/dL (8.5-10.1); MAGNESIUM - SERUM 2.3 mg/dL (1.8-2.4)
[2018-03-30 22:50] LABS: ANION GAP 21.1 mmol/L (8-16); CARBON DIOXIDE 20.2 mmol/L (21.0-32.0); CREATININE - SERUM 1.8 mg/dL (0.6-1.3); POTASSIUM - SERUM 5.3 mmol/L (3.5-5.1); PROTEIN - SERUM 4.6 g/dL (6.4-8.2)
[2018-03-31] VITALS (82 sets, daily range): BP systolic 90–147; BP diastolic 28–58
[2018-03-31 06:04] LABS: HEMATOCRIT 33.9 % (42.0-54.0); HEMOGLOBIN 11.6 g/dL (13.5-17.5); MCH 29.7 pg (26.0-34.0); MCHC 34.2 g/dL (31.0-37.0); MCV 86.7 fL (80.0-100.0); RBC 3.91 10x6/uL (4.20-6.10); WBC 22.4 10x3/uL (4.8-10.8)
[2018-03-31 06:33] LABS: ALBUMIN 2.2 g/dL (3.4-5.0); BILIRUBIN - TOTAL 1.31 mg/dL (0.2-1.3); CALCIUM 7.5 mg/dL (8.5-10.1); CARBON DIOXIDE 25.1 mmol/L (21.0-32.0); PROTEIN - SERUM 4.6 g/dL (6.4-8.2)
[2018-03-31 06:44] LABS: POTASSIUM - SERUM 4.1 mmol/L (3.5-5.1)
--- NOTE | 2018-03-31 08:16 | OP ---
PATIENT NAME: JOSE LUIS WRIGHT MEDICAL RECORD: [id number] :36 LOCATION:D.CVI D.CV02 ADMISSION DATE:03/23/18 SURGEON: GABINO DUPREE MD DATE OF OPERATION: 03/30/2018 SURGEON: Gabino Dupree MD CIVIL DRAFTING TECHNICIAN: Adam Garza MD and Barron Soto MD PREOPERATIVE DIAGNOSIS: Coronary artery disease and ischemic cardiomyopathy. POSTOPERATIVE DIAGNOSIS: Coronary artery disease and ischemic cardiomyopathy. PROCEDURES PERFORMED: 1. Coronary artery bypass graft times 4 (left internal mammary artery to LAD, reverse saphenous vein graft from aorta to second obtuse marginal, from the side of that vein graft to the first obtuse marginal distally and aorta to posterior descending artery). 2. Endoscopic saphenous vein harvest. 3. Pulmonary vein radiofrequency ablation. 4. Left atrial appendage occlusion device application. ANESTHESIA: General endotracheal anesthesia. ESTIMATED BLOOD LOSS: Total cardiopulmonary bypass with Cell Saver retransfusion. COMPLICATIONS: None. SPECIMENS: None. CONDITION: Stable. DISPOSITION: CV ICU. OPERATIVE FINDINGS: 1. Transesophageal echocardiography revealed 10% ejection fraction with septal paradoxical motion, this was improved to 25% after cardiopulmonary bypass. There was 1+ mitral regurgitation, slightly improved after cardiopulmonary bypass. 2. The greater saphenous vein harvested from the right thigh endoscopically with several bridging incisions were then made to look for larger veins. This was a 3-mm thick walled vein. It was used for the graft to the inferior wall. 3. Open bridging harvest performed in the left thigh to obtain adequate vein, which was about a 4 mm vein. 4. Good quality left internal mammary artery to the LAD, was a 2.5 mm vessel. 5. First obtuse marginal was a 1.5 mm vessel. The proximal end of this graft was anastomosed end-to-side to the graft to the second obtuse marginal. 6. Second obtuse marginal 2 0 mm. 7. Posterior descending artery 1.5 mm severely diseased vessel. 8. The patient had a large heart. 9. Pulmonary vein radiofrequency ablation using the AtriCure clamp device. 10. Application of a 50 mm AtriCure left atrial appendage occlusion device. 11. Separation from cardiopulmonary bypass with low dose epinephrine, Primacor and Levophed and junctional rhythm initially paced, but then a junctional rate OPERATIVE REPORT [id number] JOSE LUIS WRIGHT of 73, intraaortic balloon pump 1:1. OPERATIVE INDICATION: Ischemic cardiomyopathy and 3-vessel coronary artery disease. PROCEDURE IN DETAIL: The patient was brought to the operative suite. General anesthesia obtained. The patient was prepped and draped. The greater saphenous vein was harvested endoscopically from the right thigh. Side branches divided with electrocautery. The vessel was ligated proximally and distally. A side branch remained attached in the upper thigh. Several bridging incisions were made. The vessel was removed. It was noted to be somewhat small caliber. Bridging incisions were made in the left thigh. This portion of the surgery was performed by the doctor's assistant, Dr. Garza. He then prepared the vein graft by tying or oversewing side branches and varicosities on the vein grafts. The utilization of doctor's assistant surgeon saved approximately 1 hour of general anesthetic time and vein removal and vein preparation. Later the legs were closed in 2 layers. Drains were placed. Skin clips were placed and the legs were wrapped with elastic wrap. Median sternotomy incision was made. Subcutaneous tissue was divided by electrocautery. The sternum was divided with a saw. The left hemisternum was elevated. The left pleural cavity was entered. Left internal mammary vein was taken as a pedicle graft. Sternal retractor was placed. Pericardium was opened. Heparin was given. Aorta was cannulated. Dual stage venous cannula was inserted. The internal mammary was clipped distally and made ready for anastomosis. The patient was placed in cardiopulmonary bypass. Sites for distal anastomosis were selected. Right pulmonary veins were dissected out and encircled. The AtriCure clamp radiofrequency ablation device was used to burn 3 concentric lines on the left atrium just above the right pulmonary veins, then on the left side, the size of the left atrial appendage was identified and measured at the base. The left pulmonary veins were dissected out, encircled, and again 3 concentric radiofrequency ablation lines were made. Retrograde cardioplegia cannula was inserted. Antegrade cardioplegia cannula was inserted. The patient was cooled. Crossclamp was placed. Cardioplegia given antegrade, retrograde, and antegrade cardioplegia including down the completed vein grafts was given at 15-minute intervals during the crossclamp time along with intermittent retrograde. Distal anastomoses were performed in standard technique. Proximal anastomosis with single cross-clamp technique including the [id number] anastomosis. The aortic root vent was left intact. The crossclamp was removed. The patient was paced with atrial and ventricular pacing wires fully rewarmed. The aortic root vent was removed. Site was oversewn with pledgeted Prolene suture. Retrograde cannula was removed. Site was oversewn with a 5-0 Prolene and with the patient in the paced rhythm, was weaned from cardiopulmonary bypass and was stable. Ventricular cannula was removed. Aortic cannula was removed and the site was oversewn with a pledgeted Prolene suture. The patient was hemodynamically stable. Protamine was given. Thorough irrigation was undertaken. Graft lay appropriately. Drains were placed in the mediastinum and both pleural cavities. Pericardial fat was loosely reapproximated in the midline and left chest evacuated and irrigated. The internal mammary harvest site was inspected for bleeding. Sternum was closed with wires. Fascia was closed. Subcutaneous tissue closed. The skin was closed. Dermabond was placed. The needle and OPERATIVE REPORT [id number] JOSE LUIS WRIGHT sponge counts were reported as correct and the patient was taken to ICU in stable condition. TRANSINT:[id number] Voice Confirmation ID: [id number] DOCUMENT ID: [id number] GABINO DUPREE MD at 0816 CC: FARHAN AGUILA M.D. and JEFF ANSARI MD [id number] DICTATION DATE: 03/30/18 1548 CRITICAL CARE PHYSICIAN ASSISTANT: 03/30/18 2300 ADM IN [facility] [address] [place] [address]
[2018-04-01] VITALS (93 sets, daily range): BP systolic 90–155; BP diastolic 36–53
[2018-04-01 06:26] LABS: ALBUMIN 2.1 g/dL (3.4-5.0); BILIRUBIN - TOTAL 0.64 mg/dL (0.2-1.3); CALCIUM 7.3 mg/dL (8.5-10.1); CARBON DIOXIDE 28.1 mmol/L (21.0-32.0); POTASSIUM - SERUM 4.1 mmol/L (3.5-5.1); PROTEIN - SERUM 4.4 g/dL (6.4-8.2)
[2018-04-01 06:44] LABS: HEMATOCRIT 29.6 % (42.0-54.0); HEMOGLOBIN 10.1 g/dL (13.5-17.5); MCH 29.8 pg (26.0-34.0); MCHC 34.1 g/dL (31.0-37.0); MCV 87.3 fL (80.0-100.0); MEAN PLATELET VOLUME 11.1 fL (7.4-10.4); PLATELET COUNT 82 10x3/uL (130-400); RBC 3.39 10x6/uL (4.20-6.10); RDW 13.2 % (11.5-14.5); WBC 21.1 10x3/uL (4.8-10.8)
[2018-04-01 07:24] LABS: PLATELET ESTIMATE DECREASED
[2018-04-02] VITALS (97 sets, daily range): BP systolic 100–188; BP diastolic 39–451
[2018-04-02 06:30] LABS: HEMOGLOBIN 8.9 g/dL (13.5-17.5); MCH 29.2 pg (26.0-34.0); MCV 88.5 fL (80.0-100.0); PLATELET COUNT 66 10x3/uL (130-400); RBC 3.05 10x6/uL (4.20-6.10); RDW 13.3 % (11.5-14.5); WBC 16.1 10x3/uL (4.8-10.8)
[2018-04-02 06:49] LABS: ALBUMIN 1.9 g/dL (3.4-5.0); ANION GAP 10.6 mmol/L (8-16); BILIRUBIN - TOTAL 0.62 mg/dL (0.2-1.3); CALCIUM 7.2 mg/dL (8.5-10.1); CARBON DIOXIDE 27.4 mmol/L (21.0-32.0); CREATININE - SERUM 1.7 mg/dL (0.6-1.3); PROTEIN - SERUM 4.5 g/dL (6.4-8.2)
[2018-04-02 07:58] LABS: PLATELET ESTIMATE DECREASED
[2018-04-03] VITALS (84 sets, daily range): BP systolic 97–160; BP diastolic 4–81
[2018-04-03 06:36] LABS: HEMATOCRIT 25.2 % (42.0-54.0); HEMOGLOBIN 8.3 g/dL (13.5-17.5); MCHC 32.9 g/dL (31.0-37.0); MCV 88.1 fL (80.0-100.0); RBC 2.86 10x6/uL (4.20-6.10); RDW 13.1 % (11.5-14.5); WBC 14.7 10x3/uL (4.8-10.8)
[2018-04-03 06:45] LABS: ANION GAP 10.6 mmol/L (8-16); BILIRUBIN - TOTAL 0.71 mg/dL (0.2-1.3); CALCIUM 7.3 mg/dL (8.5-10.1); CREATININE - SERUM 1.7 mg/dL (0.6-1.3); POTASSIUM - SERUM 3.6 mmol/L (3.5-5.1); PROTEIN - SERUM 4.6 g/dL (6.4-8.2)
[2018-04-03 07:08] LABS: PLATELET COUNT 81 10x3/uL (130-400)
[2018-04-03 07:44] LABS: PLATELET ESTIMATE DECREASED
--- NOTE | 2018-04-03 13:29 | HP ---
PATIENT: JOSE LUIS WRIGHT MEDICAL RECORD: [id number] ACCOUNT: [id number] LOCATION:[facility] D.CV02 : 38 ADMISSION DATE: 03/23/18 PCP: JEFF ANSARI MD HISTORY AND PHYSICAL EXAMINATION DIAGNOSES: 1. Atrial fibrillation with rapid ventricular response. 2. Abnormal ECG. 3. Shortness of breath. 4. Chest fullness/tightness. 5. Hypertension. 6. Hyperlipidemia. HISTORY: Mr. Wright had episodes of palpitations and shortness of breath. He was seen in our office and put on outpatient monitor. He was noted to have bradycardia as well as tachycardia. He now presents with shortness of breath and chest fullness, and found to be in atrial fibrillation/SVT. Heart rate is in 160s to 170s with ST-T abnormalities on his EKG. He has not had a workup for ischemic heart disease. He was referred to Dr. Garza for possible pacemaker. He has not heard back from them. PHYSICAL EXAMINATION: GENERAL APPEARANCE: Well-nourished, well-developed, appears stated age. Level of distress, comfortable. PSYCHIATRIC: Mental status, alert, normal affect. Orientation, oriented to time, place and person. EYES: Lids and conjunctiva, noninjected. No discharge, no pallor. ENT: Lips, teeth, gums, normal dentition. Oropharynx, no cyanosis, no pallor. NECK: Carotid arteries, bilateral normal upstroke, no bruits, no thrills. JUGULAR VEINS: No jugular venous pressure or distention. CERVICAL LYMPH NODES: Nontender, nonenlarged. THYROID: Not enlarged. Nontender. No nodules. LUNGS: Respiratory effort, unlabored. CHEST: Normal curvature. No thoracic deformity. No chest wall tenderness. Percussion, resonant. Auscultation, clear. No wheezes, no rales, no rhonchi. CARDIOVASCULAR: Precordial exam, nondisplaced. No heaves or pericardial thrills. Rate and rhythm, regular. Heart sounds, normal S1, normal S2. No S3, no gallop, no rub. Systolic murmur, not heard. Diastolic murmur, not heard. EXTREMITIES: No cyanosis, no edema. Peripheral pulses, full and equal in all extremities, except as noted. No bruits appreciated. ABDOMEN: Soft, nondistended. Normal aorta. No bruit. Nontender. No masses. Liver, nontender, no hepatomegaly. Spleen, nontender, no splenomegaly. MUSCULOSKELETAL: No joint tenderness. No joint swelling. No erythema. NEUROLOGICAL: Normal gait, normal strength, normal tone. SKIN: Warm and dry. OVERALL IMPRESSION: Sick sinus syndrome. At this time, we will start amiodarone IV as well as p.o. Plan for cardiac catheterization in the a.m. and plan for permanent pacemaker tomorrow afternoon as well. TRANSINT:[id number] Voice Confirmation ID: [id number] DOCUMENT ID: [id number] HISTORY AND PHYSICAL [id number] JOSE LUIS WRIGHT JEFFREY MD at 1329 CC: [id number] DICTATION DATE: 03/22/18 1621 CANDY COUNTER CLERK: 03/22/18 1644 ADM IN [place] [address] [place] [id number]
--- NOTE | 2018-04-03 13:29 | EC ---
PATIENT:JOSE LUIS WRIGHT DATE OF SERVICE: 03/23/18 SEX: M MEDICAL RECORD: [id number] DATE OF : 38 LOCATION:[place] [address] AGE OF PATIENT: 77 ADMISSION DATE: 03/23/18 REFERRING PHYSICIAN: INTERPRETING PHYSICIAN: TIARA DEWITT MD ECHOCARDIOGRAM REPORT ECHO CHARGES 4 ECHO COMPLETE Date: 03/23/18 CLINICAL DIAGNOSIS: SOB/SVT/CHEST PAIN ECHOCARDIOGRAPHIC MEASUREMENTS (adult normal given) AC root (d.<3.7cm) 3.3 cm LV Septum d (<1.2 cm> 1.6 cm Valve Excursion 1.5 cm LV Septum (systole) 1.7 cm Left Atria (s.<4.0cm> 4.4 cm LVPW d(<1.2cm) 1.2 cm RV (d.<2.3cm) 3.8 cm LVPW (sytole) 1.4 cm LV diastole(<5.6CM) 6.8 cm MV E-F(>70mm/sec) cm LV systole 6.0 cm LVOT Diameter 2.1 cm MV exc.(>10mm) 1.1 cm Est.ejection fraction (50-75%) % DOPPLER: LVIT cm/sec A 33.0 cm/sec E 110 cm/sec LA cm/sec RVSP 25 mmHg LVOT 73 cm/sec AOP1/2T m/s Asc. Ao 108 cm/sec RVOT cm/sec RA cm/sec PA 134 cm/sec AV Gradient Peak 4.64 mmHg AV Mean 2.32 mmHg AV Area 2.7 cm MV Gradient Peak 6.90 mmHg MV Mean 1.92 mmHg MV Area cm COMMENTS: Claim Investigator: 2 HEATHER SPENCER Rehabilitation Construction Specialist: 1 Dr. Dewitt TAPE# PACS Pericardial Effusion N DATE OF SERVICE: FINDINGS: 1. Left ventricular chamber size is dilated. Left ventricular systolic function is severely reduced, overall ejection fraction 15% to 20%. 2. Left atrium is enlarged at 4.4 cm. Right atrium and right ventricle chamber sizes are as well mildly dilated. 3. Valvular structures have normal structure and motion. 4. Doppler interrogation reveals pibt-ym-kfivhjvk mitral regurgitation, mild tricuspid regurgitation, no other valvular insufficiency or stenosis. Pulmonary ECHOCARDIOGRAM REPORT [id number] JOSE LUIS WRIGHT systolic pressure is estimated at 25 mmHg. 5. No evidence of pericardial effusion or left ventricular thrombus. TRANSINT:[id number] Voice Confirmation ID: [id number] DOCUMENT ID: [id number] TIARA DEWITT MD at 1329 CC: [id number] DICTATION DATE: 03/23/18 1301 TUFTING CREELER: 03/23/18 1316 ADM IN [place] [address] [place] [id number]
--- NOTE | 2018-04-03 15:01 | OP ---
PATIENT NAME: JOSE LUIS WRIGHT MEDICAL RECORD: [id number] :38 LOCATION:[facility] [place].CV02 ADMISSION DATE:03/23/18 SURGEON: MEHREEN GRECO MD DATE OF OPERATION: 03/29/2018 PROCEDURE: Intraaortic balloon pump placement. INDICATION: Preop high risk bypass grafting. DESCRIPTION OF PROCEDURE: The left femoral artery was cannulated via modified Seldinger technique and fluoroscopic guidance, the intraaortic balloon pump was placed to the level of the maria dolores. The counter pulsations were performed at 1:1 after aortic augmentation was assured and a good pulse in all extremities. The intraaortic balloon pump was sutured in place. IMPRESSION: Successful intraaortic balloon pump. ESTIMATED BLOOD LOSS: Minimal. DISPOSITION: To the floor, stable. COMPLICATIONS: None. TRANSINT:[id number] Voice Confirmation ID: [id number] DOCUMENT ID: [id number] MEHREEN GRECO MD at 1501 CC: [id number] DICTATION DATE: 03/29/18 1611 MECHANICAL ESTIMATOR: 03/29/18 2148 ADM IN [facility] [address] [place] [address]
[2018-04-04] VITALS (32 sets, daily range): BP systolic 95–146; BP diastolic 50–84
[2018-04-04 07:03] LABS: HEMATOCRIT 29.2 % (42.0-54.0); HEMOGLOBIN 9.6 g/dL (13.5-17.5); MCH 29.4 pg (26.0-34.0); MCHC 32.9 g/dL (31.0-37.0); MCV 89.3 fL (80.0-100.0); MEAN PLATELET VOLUME 10.3 fL (7.4-10.4); RBC 3.27 10x6/uL (4.20-6.10); RDW 13.4 % (11.5-14.5); WBC 12.1 10x3/uL (4.8-10.8)
[2018-04-04 07:18] LABS: ALBUMIN 2.2 g/dL (3.4-5.0); ANION GAP 12.7 mmol/L (8-16); BILIRUBIN - TOTAL 0.86 mg/dL (0.2-1.3); CALCIUM 7.6 mg/dL (8.5-10.1); CARBON DIOXIDE 28.2 mmol/L (21.0-32.0); CREATININE - SERUM 1.4 mg/dL (0.6-1.3); POTASSIUM - SERUM 3.9 mmol/L (3.5-5.1); PROTEIN - SERUM 5.3 g/dL (6.4-8.2)
--- NOTE | 2018-04-04 16:39 | TEE ---
PATIENT:JOSE LUIS WRIGHT MEDICAL RECORD: [id number] LOCATION:[place] [address] AGE OF PATIENT: 77 ADMISSION DATE: 03/23/18 SEX: M REFERRING PHYSICIAN: INTERPRETING PHYSICIAN: TIARA FERNANDEZ MD TRANSESOPHAGEAL ECHOCARDIOGRAM Date: 03/30/18 ISABEL CHARGE Y INDICATIONS: CABG PREMEDICATIONS: PATIENT'S RESPONSE PROCEDURE DOPPLER MEASUREMENTS: LVIT LA 0 PA 0 RA 0 LVOT 0 RVOT 0 Asc. Ao 0 AV Gradient Peak 0 AV Mean 0 AV Area 0 MV Gradient Peak 0 MV Mean 0 MV Area 0 INTERPRETATION: LVd: 7.2 cm LVs: 6.0 cm Doppler: 2-D: COLOR FLOW DOPPLER NORMAL SALINE STUDY: MISCELLANOUS: DIAGNOSIS: PLAN: Manufacturing Engineering Director:Alex Harp Van Owner Operator: Will WEINSTEIN COMMENTS: LIMITED STUDY (2-D ONLY) DATE OF SERVICE: 03/30/2018 PROCEDURE: Transesophageal echo evaluation of valvular structures during bypass surgery. FINDINGS: 1. Left ventricular chamber size is dilated. Left ventricular systolic function is markedly reduced, overall ejection fraction in the 10% to 15% range. 2. Left atrium, right atrium, and right ventricle chamber sizes are dilated TRANSESOPHAGEAL ECHOCARDIOGRAM REPORT [id number] JOSE LUIS WRIGHT giving 4-chamber dilatation. 3. Valvular structures have normal structure and motion. 4. Doppler interrogation reveals mild mitral regurgitation, moderate tricuspid regurgitation, no other valvular insufficiency or stenosis. 5. No evidence of pericardial effusion or left ventricular thrombus. TRANSINT:[id number] Voice Confirmation ID: [id number] DOCUMENT ID: [id number] at 1639 CC: [id number] DICTATION DATE: 04/03/18 1227 DRIP PUMPER: 04/04/18 0049 ADM IN [facility] [address] [place] [address]
[2018-04-05] VITALS (23 sets, daily range): BP systolic 90–162; BP diastolic 44–82
[2018-04-05 06:50] LABS: BASOPHILS 0.2 % (0-2); EOSINOPHILS 3.8 % (0-7); HEMATOCRIT 30.7 % (42.0-54.0); HEMOGLOBIN 10.2 g/dL (13.5-17.5); IMMATURE GRANULOCYTES 0.3 % (0-5); LYMPHOCYTES 12.3 % (15-50); MCH 29.4 pg (26.0-34.0); MCHC 33.2 g/dL (31.0-37.0); MCV 88.5 fL (80.0-100.0); MEAN PLATELET VOLUME 9.5 fL (7.4-10.4); MONOCYTES 11.2 % (2-11); NEUTROPHILS 72.2 % (40-80); PLATELET COUNT 148 10x3/uL (130-400); RBC 3.47 10x6/uL (4.20-6.10); RDW 13.3 % (11.5-14.5); WBC 13.1 10x3/uL (4.8-10.8)
[2018-04-05 07:45] LABS: ALBUMIN 2.1 g/dL (3.4-5.0); ANION GAP 12.8 mmol/L (8-16); BILIRUBIN - TOTAL 0.79 mg/dL (0.2-1.3); CALCIUM 7.7 mg/dL (8.5-10.1); CARBON DIOXIDE 28.6 mmol/L (21.0-32.0); CREATININE - SERUM 1.4 mg/dL (0.6-1.3); POTASSIUM - SERUM 3.4 mmol/L (3.5-5.1); PROTEIN - SERUM 5.4 g/dL (6.4-8.2)
[2018-04-05 11:36] LABS: APTT 27.8 SECONDS (22.8-39.4); INR 1.28 (0.85-1.17); PROTIME 15.4 SECONDS (11.6-15.0)
[2018-04-05 11:43] LABS: ALBUMIN 2.2 g/dL (3.4-5.0); BILIRUBIN - DIRECT 0.23 mg/dL (0.00-0.30); BILIRUBIN - INDIRECT 0.55 mg/dL (0.00-1.00); BILIRUBIN - TOTAL 0.78 mg/dL (0.2-1.3); PROTEIN - SERUM 4.9 g/dL (6.4-8.2)
[2018-04-06] VITALS (24 sets, daily range): BP systolic 101–159; BP diastolic 49–78
[2018-04-06 05:24] LABS: INR 3.4 (0.85-1.17); PROTIME 33.6 SECONDS (11.6-15.0)
[2018-04-06 05:56] LABS: BASOPHILS 0.3 % (0-2); EOSINOPHILS 4.1 % (0-7); HEMATOCRIT 30.9 % (42.0-54.0); HEMOGLOBIN 10.1 g/dL (13.5-17.5); IMMATURE GRANULOCYTES 0.6 % (0-5); LYMPHOCYTES 13.4 % (15-50); MCHC 32.7 g/dL (31.0-37.0); MCV 88.8 fL (80.0-100.0); MEAN PLATELET VOLUME 9.8 fL (7.4-10.4); MONOCYTES 11.4 % (2-11); NEUTROPHILS 70.2 % (40-80); PLATELET COUNT 215 10x3/uL (130-400); RBC 3.48 10x6/uL (4.20-6.10); RDW 13.4 % (11.5-14.5); WBC 14.2 10x3/uL (4.8-10.8)
[2018-04-06 06:04] LABS: ALBUMIN 2.1 g/dL (3.4-5.0); ANION GAP 10.1 mmol/L (8-16); BILIRUBIN - TOTAL 0.68 mg/dL (0.2-1.3); CALCIUM 7.3 mg/dL (8.5-10.1); CARBON DIOXIDE 28.4 mmol/L (21.0-32.0); CREATININE - SERUM 1.4 mg/dL (0.6-1.3); POTASSIUM - SERUM 3.5 mmol/L (3.5-5.1); PROTEIN - SERUM 5.3 g/dL (6.4-8.2)
[2018-04-07] VITALS (24 sets, daily range): BP systolic 111–164; BP diastolic 44–84
[2018-04-07 06:23] LABS: PLATELET COUNT 238 10x3/uL (130-400)
[2018-04-07 06:37] LABS: INR 2.76 (0.85-1.17); PROTIME 28.5 SECONDS (11.6-15.0)
[2018-04-07 06:40] LABS: APTT 85.9 SECONDS (22.8-39.4); BASOPHILS 0.4 % (0-2); EOSINOPHILS 4.4 % (0-7); HEMATOCRIT 32.7 % (42.0-54.0); HEMOGLOBIN 10.7 g/dL (13.5-17.5); IMMATURE GRANULOCYTES 0.6 % (0-5); LYMPHOCYTES 13.5 % (15-50); MCH 28.8 pg (26.0-34.0); MCHC 32.7 g/dL (31.0-37.0); MCV 88.1 fL (80.0-100.0); MEAN PLATELET VOLUME 9.7 fL (7.4-10.4); MONOCYTES 9.9 % (2-11); NEUTROPHILS 71.2 % (40-80); RBC 3.71 10x6/uL (4.20-6.10); RDW 13.3 % (11.5-14.5); WBC 12.7 10x3/uL (4.8-10.8)
[2018-04-07 06:55] LABS: ALBUMIN 2.2 g/dL (3.4-5.0); ANION GAP 13.7 mmol/L (8-16); BILIRUBIN - TOTAL 0.77 mg/dL (0.2-1.3); CALCIUM 7.9 mg/dL (8.5-10.1); CARBON DIOXIDE 25.2 mmol/L (21.0-32.0); CREATININE - SERUM 1.4 mg/dL (0.6-1.3); POTASSIUM - SERUM 3.9 mmol/L (3.5-5.1); PROTEIN - SERUM 5.5 g/dL (6.4-8.2)
[2018-04-08] VITALS (24 sets, daily range): BP systolic 109–159; BP diastolic 30–88
[2018-04-08 06:24] LABS: INR 2.5 (0.85-1.17); PROTIME 26.3 SECONDS (11.6-15.0)
[2018-04-08 06:25] LABS: APTT 82.9 SECONDS (22.8-39.4)
[2018-04-08 06:39] LABS: ALBUMIN 2.2 g/dL (3.4-5.0); ANION GAP 12.8 mmol/L (8-16); BILIRUBIN - TOTAL 0.79 mg/dL (0.2-1.3); CALCIUM 7.3 mg/dL (8.5-10.1); CARBON DIOXIDE 26.1 mmol/L (21.0-32.0); CREATININE - SERUM 1.3 mg/dL (0.6-1.3); POTASSIUM - SERUM 3.9 mmol/L (3.5-5.1); PROTEIN - SERUM 5.4 g/dL (6.4-8.2)
[2018-04-08 15:27] LABS: APPEARANCE CLEAR (CLEAR); BILIRUBIN NEGATIVE (NEGATIVE); COLOR STRAW (YELLOW); GLUCOSE NEGATIVE (NEGATIVE); KETONE NEGATIVE (NEGATIVE); NITRITE NEGATIVE (NEGATIVE); PROTEIN NEGATIVE (NEGATIVE); SPECIFIC GRAVITY 1.015 (1.005-1.020); UROBILINOGEN NORMAL (NORMAL)
[2018-04-08 15:28] LABS: BACTERIA FEW /hpf (NONE SEEN); EPITHELIAL CELLS 0-5 /hpf (0-5); RED CELLS - URINE 0-5 /hpf (0-5); WHITE CELLS - URINE 0-5 /hpf (0-5)
[2018-04-09] VITALS (24 sets, daily range): BP systolic 125–151; BP diastolic 37–67
[2018-04-09 06:23] LABS: BASOPHILS 0.2 % (0-2); EOSINOPHILS 3.1 % (0-7); HEMATOCRIT 29.8 % (42.0-54.0); HEMOGLOBIN 9.8 g/dL (13.5-17.5); IMMATURE GRANULOCYTES 0.5 % (0-5); LYMPHOCYTES 15.4 % (15-50); MCH 29.3 pg (26.0-34.0); MCHC 32.9 g/dL (31.0-37.0); MEAN PLATELET VOLUME 9.1 fL (7.4-10.4); MONOCYTES 8.5 % (2-11); NEUTROPHILS 72.3 % (40-80); PLATELET COUNT 275 10x3/uL (130-400); RBC 3.35 10x6/uL (4.20-6.10); RDW 13.7 % (11.5-14.5); WBC 10.3 10x3/uL (4.8-10.8)
[2018-04-09 06:33] LABS: ANION GAP 12.4 mmol/L (8-16); CALCIUM 7.2 mg/dL (8.5-10.1); CARBON DIOXIDE 26.4 mmol/L (21.0-32.0); CREATININE - SERUM 1.3 mg/dL (0.6-1.3); MAGNESIUM - SERUM 1.5 mg/dL (1.8-2.4); POTASSIUM - SERUM 3.8 mmol/L (3.5-5.1)
[2018-04-09 07:11] LABS: INR 2.8 (0.85-1.17); PROTIME 28.7 SECONDS (11.6-15.0)
[2018-04-09 07:50] LABS: APTT 56.4 SECONDS (22.8-39.4)
[2018-04-10] VITALS (23 sets, daily range): BP systolic 111–154; BP diastolic 41–62
[2018-04-10 07:02] LABS: ALBUMIN 2.3 g/dL (3.4-5.0); ANION GAP 11.8 mmol/L (8-16); BILIRUBIN - TOTAL 0.74 mg/dL (0.2-1.3); CALCIUM 7.7 mg/dL (8.5-10.1); CARBON DIOXIDE 25.5 mmol/L (21.0-32.0); CREATININE - SERUM 1.3 mg/dL (0.6-1.3); POTASSIUM - SERUM 4.3 mmol/L (3.5-5.1); PROTEIN - SERUM 5.5 g/dL (6.4-8.2)
[2018-04-10 07:12] LABS: BASOPHILS 0.3 % (0-2); EOSINOPHILS 3.1 % (0-7); HEMATOCRIT 30.3 % (42.0-54.0); HEMOGLOBIN 9.9 g/dL (13.5-17.5); IMMATURE GRANULOCYTES 0.3 % (0-5); LYMPHOCYTES 14.3 % (15-50); MCH 28.9 pg (26.0-34.0); MCHC 32.7 g/dL (31.0-37.0); MCV 88.3 fL (80.0-100.0); MEAN PLATELET VOLUME 9.6 fL (7.4-10.4); MONOCYTES 10.4 % (2-11); NEUTROPHILS 71.6 % (40-80); PLATELET COUNT 323 10x3/uL (130-400); RBC 3.43 10x6/uL (4.20-6.10); RDW 13.6 % (11.5-14.5); WBC 11.5 10x3/uL (4.8-10.8)
[2018-04-10 08:03] LABS: APTT 36.8 SECONDS (22.8-39.4); INR 1.4 (0.85-1.17); PROTIME 16.6 SECONDS (11.6-15.0)
--- NOTE | 2018-04-10 18:03 | MORECARE ---
CASE MANAGEMENT DISCHARGE SUMMARY PATIENT: JOSE LUIS WRIGHT UNIT: [id number] ADM DATE: 03/23/18 AGE: 77 : 38 SEX: M ROOM/BED: D[facility] AUTHOR: DAVE,DOC PHYSICIAN: REFERRING PHYSICIAN: TIARA FERNANDEZ MD DATE OF SERVICE: 04/10/18 Discharge Plan Patient Name: JOSE LUIS WRIGHT Facility: [facility]:[place] : 1940 Planned Disposition: Home Anticipated Discharge Date: 04/02/18 Discharge Date: Expected LOS: 10 Initial Reviewer: [email or web address] Initial Review Date: 03/28/2018 Generated: 04/10/18 7:03 pm Comments DCP- Discharge Planning Updated by [email or web address]: Noreen Montejo on 04/10/18 4:[address] CM spoke with Latesha in rehab regarding eval. Latesha stated she is waiting to hear back from insurance for approval. CM will continue to follow and assist as needed with discharge planning / needs. DCP- Discharge Planning Updated by [email or web address]: Rosalind Coelho on 03/28/18 5:[address] Patient Name: JOSE LUSI WRIGHT Admission Status: ER Accout number: [id number] Admission Date: 03-23-2018 : 1940 Admission Diagnosis: Attending: ALAYNA FERNANDEZ Current LOS: 5 Anticipated DC Date: 04-02-2018 Planned Disposition: Home Primary Insurance: [facility] MEDICARE SOLUTIONS Discharge Planning Comments: CM MET WITH PATIENT REGARDING D/C NEEDS AND PLANS. PATIENT STATED HE LIVES WITH HIS (FANY) AND SHE WILL DRIVE HIM HOME AT DISCHARGE. PATIENT STATED HE HAS ONE STEP TO ENTER HOME AND NO STAIRS INSIDE. PATIENT IS INDEPENDENT WITH HIS CARE AND HAS A WALKER, SHOWER CHAIR, GLUCOMETER AT HOME. PATIENT IS HAVING SURGERY THIS WEEK AND WANTS TO SEE IF HE NEEDS HOME HEALTH AT THAT TIME AND WILL DISCUSS WITH HIS . CM WILL CONTINUE TO FOLLOW PATIENT WITH D/C NEEDS AND PLANS. PCP DR. COTY PEÑA AT [facility] ([place]) C [phone] Assurance Specialist: Rosalind Coelho DCPIA - Discharge Planning Initial Assessment Updated by [email or web address]: Rosalind Coelho on 03/28/18 6:04 pm * Is the patient Alert and Oriented? Yes * How many steps to enter\exit or inside your home? * PCP DR. ANSARI * Pharmacy [facility] * Preadmission Environment Home with Family * ADLs Independent * Equipment Glucometer Shower Chair Walker * List name and contact numbers for known caregivers / representatives who currently or will assist patient after discharge: FANY ([place]) [phone] H [phone] * Verbal permission to speak to the caregivers and representatives has been obtained from the patient. Yes * Community resources currently utilized None * Additional services required to return to the preadmission environment? Yes * Can the patient safely return to the preadmission environment? Yes * Has this patient been hospitalized within the prior 30 days at any hospital? No Last DP export: 03/28/18 5:14 pm Patient Name: JOSE LUIS WRIGHT Page [id number] at 1803 All edits/amendments must be made on the electronic document DICTATION DATE: 04/10/181802 PARA EDUCATOR: VETO 04/10/181802 RPT#: [id number] DC DATE: STATUS: ADM IN [facility] [address] [place] [address] END OF REPORT
[2018-04-11] VITALS (19 sets, daily range): BP systolic 100–145; BP diastolic 47–67
[2018-04-11 06:22] LABS: BASOPHILS 0.3 % (0-2); EOSINOPHILS 4.1 % (0-7); HEMATOCRIT 29.5 % (42.0-54.0); HEMOGLOBIN 9.7 g/dL (13.5-17.5); IMMATURE GRANULOCYTES 0.2 % (0-5); LYMPHOCYTES 19.6 % (15-50); MCHC 32.9 g/dL (31.0-37.0); MCV 88.3 fL (80.0-100.0); MEAN PLATELET VOLUME 9.2 fL (7.4-10.4); MONOCYTES 8.6 % (2-11); NEUTROPHILS 67.2 % (40-80); PLATELET COUNT 312 10x3/uL (130-400); RBC 3.34 10x6/uL (4.20-6.10); RDW 13.6 % (11.5-14.5); WBC 9.2 10x3/uL (4.8-10.8)
[2018-04-11 06:34] LABS: INR 1.45 (0.85-1.17); PROTIME 17.1 SECONDS (11.6-15.0)
[2018-04-11 06:52] LABS: ALBUMIN 2.1 g/dL (3.4-5.0); ANION GAP 12.7 mmol/L (8-16); BILIRUBIN - TOTAL 0.71 mg/dL (0.2-1.3); CALCIUM 7.9 mg/dL (8.5-10.1); CARBON DIOXIDE 27.6 mmol/L (21.0-32.0); CREATININE - SERUM 1.3 mg/dL (0.6-1.3); POTASSIUM - SERUM 4.3 mmol/L (3.5-5.1); PROTEIN - SERUM 5.2 g/dL (6.4-8.2)
--- NOTE | 2018-04-11 10:46 | MORECARE ---
CASE MANAGEMENT DISCHARGE SUMMARY PATIENT: JOSE LUIS WRIGHT UNIT: [id number] ADM DATE: 03/23/18 AGE: 77 : 38 SEX: M ROOM/BED: D.02 AUTHOR: DAVEDOC PHYSICIAN: REFERRING PHYSICIAN: TIARA FERNANDEZ MD DATE OF SERVICE: 04/11/18 Discharge Plan Patient Name: JOSE LUIS WRIGHT Facility: [facility]:[place] : 1940 Planned Disposition: Home Anticipated Discharge Date: 04/02/18 Discharge Date: Expected LOS: 10 Initial Reviewer: [email or web address] Initial Review Date: 03/28/2018 Generated: 04/11/18 11:46 am Comments DCP- Discharge Planning Updated by [email or web address]: Noreen Montejo on 04/11/18 9:[address] CM called and spoke with Nicole with Inpatient Rehab. She stated they are still awaiting [facility] determination. She stated she would call and let us know as soon as they find out something. CM will continue to follow and assist as needed with discharge planning / needs. DCP- Discharge Planning Updated by [email or web address]: Noreen Montejo on 04/10/18 4:[address] CM spoke with Latesha in rehab regarding eval. Latesha stated she is waiting to hear back from insurance for approval. CM will continue to follow and assist as needed with discharge planning / needs. DCP- Discharge Planning Updated by [email or web address]: Rosalind Coelho on 03/28/18 5:[address] Patient Name: JOSE LUIS WRIGHT Admission Status: ER Accout number: [id number] Admission Date: 03-23-2018 : 1940 Admission Diagnosis: Attending: ALAYNA FERNANDEZ Current LOS: 5 Anticipated DC Date: 04-02-2018 Planned Disposition: Home Primary Insurance: [facility] MEDICARE SOLUTIONS Discharge Planning Comments: CM MET WITH PATIENT REGARDING D/C NEEDS AND PLANS. PATIENT STATED HE LIVES WITH HIS (FANY) AND SHE WILL DRIVE HIM HOME AT DISCHARGE. PATIENT STATED HE HAS ONE STEP TO ENTER HOME AND NO STAIRS INSIDE. PATIENT IS INDEPENDENT WITH HIS CARE AND HAS A WALKER, SHOWER CHAIR, GLUCOMETER AT HOME. PATIENT IS HAVING SURGERY THIS WEEK AND WANTS TO SEE IF HE NEEDS HOME HEALTH AT THAT TIME AND WILL DISCUSS WITH HIS . CM WILL CONTINUE TO FOLLOW PATIENT WITH D/C NEEDS AND PLANS. PCP DR. COTY PEÑA AT [facility] ([place]) C [phone] Geophysicist: Rosalind Coelho DCPIA - Discharge Planning Initial Assessment Updated by [email or web address]: Rosalind Coelho on 03/28/18 6:04 pm * Is the patient Alert and Oriented? Yes * How many steps to enter\exit or inside your home? * PCP DR. ANSARI * Pharmacy [facility] * Preadmission Environment Home with Family * ADLs Independent * Equipment Glucometer Shower Chair Walker * List name and contact numbers for known caregivers / representatives who currently or will assist patient after discharge: FANY ([place]) [phone] * Verbal permission to speak to the caregivers and representatives has been obtained from the patient. Yes * Community resources currently utilized None * Additional services required to return to the preadmission environment? Yes * Can the patient safely return to the preadmission environment? Yes * Has this patient been hospitalized within the prior 30 days at any hospital? No Last DP export: 04/10/18 5:03 p Patient Name: JOSE LUIS WRIGHT Page [id number] at 1046 All edits/amendments must be made on the electronic document DICTATION DATE: 04/11/18 1046 SUBSTITUTE NURSE: VETO 04/11/18 1046 RPT#: [id number] DC DATE: STATUS: ADM IN [facility] [address] [place] [address] END OF REPORT
[2018-04-12] VITALS (21 sets, daily range): BP systolic 93–153; BP diastolic 35–79
[2018-04-12 05:44] LABS: BASOPHILS 0.3 % (0-2); EOSINOPHILS 4.5 % (0-7); HEMATOCRIT 29.6 % (42.0-54.0); HEMOGLOBIN 9.8 g/dL (13.5-17.5); IMMATURE GRANULOCYTES 0.3 % (0-5); LYMPHOCYTES 18.7 % (15-50); MCH 29.3 pg (26.0-34.0); MCHC 33.1 g/dL (31.0-37.0); MCV 88.4 fL (80.0-100.0); MEAN PLATELET VOLUME 8.9 fL (7.4-10.4); MONOCYTES 8.3 % (2-11); NEUTROPHILS 67.9 % (40-80); PLATELET COUNT 307 10x3/uL (130-400); RBC 3.35 10x6/uL (4.20-6.10); RDW 13.6 % (11.5-14.5); WBC 9.9 10x3/uL (4.8-10.8)
[2018-04-12 06:02] LABS: ANION GAP 14.3 mmol/L (8-16); CALCIUM 7.6 mg/dL (8.5-10.1); CARBON DIOXIDE 25.9 mmol/L (21.0-32.0); CREATININE - SERUM 1.3 mg/dL (0.6-1.3); POTASSIUM - SERUM 4.2 mmol/L (3.5-5.1)
--- NOTE | 2018-04-12 15:54 | MORECARE ---
CASE MANAGEMENT DISCHARGE SUMMARY PATIENT: JOSE LUIS WRIGHT UNIT: [id number] ADM DATE: 03/23/18 AGE: 77 : 38 SEX: M ROOM/BED: D.02 AUTHOR: DAVEDOC PHYSICIAN: REFERRING PHYSICIAN: TIARA FERNANDEZ MD DATE OF SERVICE: 04/12/18 Discharge Plan Patient Name: JOSE LUIS WRIGHT Facility: [facility]:[place] : 1940 Planned Disposition: Home Anticipated Discharge Date: 04/02/18 Discharge Date: Expected LOS: 10 Initial Reviewer: [email or web address] Initial Review Date: 03/28/2018 Generated: 04/12/18 4:54 pm Comments DCP- Discharge Planning Updated by [email or web address]: Noreen Montejo on 04/11/18 9:[address] CM called and spoke with Nicole with Inpatient Rehab. She stated they are still awaiting [facility] determination. She stated she would call and let us know as soon as they find out something. CM will continue to follow and assist as needed with discharge planning / needs. DCP- Discharge Planning Updated by [email or web address]: Noreen Montejo on 04/10/18 4:[address] CM spoke with Latesha in rehab regarding eval. Latesha stated she is waiting to hear back from insurance for approval. CM will continue to follow and assist as needed with discharge planning / needs. DCP- Discharge Planning Updated by [email or web address]: Rosalind Coelho on 03/28/18 5:[address] Patient Name: JOSE LUIS WRIGHT Admission Status: ER Accout number: [id number] Admission Date: 03-23-2018 : 1940 Admission Diagnosis: Attending: ALAYNA FERNANDEZ Current LOS: 5 Anticipated DC Date: 04-02-2018 Planned Disposition: Home Primary Insurance: [facility] MEDICARE SOLUTIONS Discharge Planning Comments: CM MET WITH PATIENT REGARDING D/C NEEDS AND PLANS. PATIENT STATED HE LIVES WITH HIS (FANY) AND SHE WILL DRIVE HIM HOME AT DISCHARGE. PATIENT STATED HE HAS ONE STEP TO ENTER HOME AND NO STAIRS INSIDE. PATIENT IS INDEPENDENT WITH HIS CARE AND HAS A WALKER, SHOWER CHAIR, GLUCOMETER AT HOME. PATIENT IS HAVING SURGERY THIS WEEK AND WANTS TO SEE IF HE NEEDS HOME HEALTH AT THAT TIME AND WILL DISCUSS WITH HIS . CM WILL CONTINUE TO FOLLOW PATIENT WITH D/C NEEDS AND PLANS. PCP DR. COTY PEÑA AT [facility] ([place]) C [phone] Pbx Inspector: Rosalind Coelho DCPIA - Discharge Planning Initial Assessment Updated by [email or web address]: Rosalind Coelho on 03/28/18 6:04 pm * Is the patient Alert and Oriented? Yes * How many steps to enter\exit or inside your home? * PCP DR. ANSARI * Pharmacy [facility] * Preadmission Environment Home with Family * ADLs Independent * Equipment Glucometer Shower Chair Walker * List name and contact numbers for known caregivers / representatives who currently or will assist patient after discharge: FANY ([place]) [phone] * Verbal permission to speak to the caregivers and representatives has been obtained from the patient. Yes * Community resources currently utilized None * Additional services required to return to the preadmission environment? Yes * Can the patient safely return to the preadmission environment? Yes * Has this patient been hospitalized within the prior 30 days at any hospital? No External Providers [facility] Next Contact Date: Service Request Date: Service Type: Resolution: Reviewer: Comments: Last DP export: 04/11/18 9:46 a Patient Name: JOSE LUIS WRIGHT Page [id number] at 1554 All edits/amendments must be made on the electronic document DICTATION DATE: 04/12/181552 CLIENT SERVICE REPRESENTATIVE: VETO 04/12/181552 RPT#: [id number] DC DATE: STATUS: ADM IN [facility] [address] [place] [address] END OF REPORT
--- NOTE | 2018-04-12 16:35 | MORECARE ---
CASE MANAGEMENT DISCHARGE SUMMARY PATIENT: JOSE LUIS WRIGHT UNIT: [id number] ADM DATE: 03/23/18 AGE: 77 : 38 SEX: M ROOM/BED: D.02 AUTHOR: DAVEDOC PHYSICIAN: REFERRING PHYSICIAN: TIARA FERNANDEZ MD DATE OF SERVICE: 04/12/18 Discharge Plan Patient Name: JOSE LUIS WRIGHT Facility: [facility]:[place] : 1940 Planned Disposition: Home Anticipated Discharge Date: 04/02/18 Discharge Date: Expected LOS: 10 Initial Reviewer: [email or web address] Initial Review Date: 03/28/2018 Generated: 04/12/18 5:35 pm Comments DCP- Discharge Planning Updated by [email or web address]: Noreen Montejo on 04/11/18 9:[address] CM called and spoke with Nicole with Inpatient Rehab. She stated they are still awaiting [facility] determination. She stated she would call and let us know as soon as they find out something. CM will continue to follow and assist as needed with discharge planning / needs. DCP- Discharge Planning Updated by [email or web address]: Noreen Montejo on 04/10/18 4:[address] CM spoke with Latesha in rehab regarding eval. Latesha stated she is waiting to hear back from insurance for approval. CM will continue to follow and assist as needed with discharge planning / needs. DCP- Discharge Planning Updated by [email or web address]: Rosalind Coelho on 03/28/18 5:[address] Patient Name: JOSE LUIS WRIGHT Admission Status: ER Accout number: [id number] Admission Date: 03-23-2018 : 1940 Admission Diagnosis: Attending: ALAYNA FERNANDEZ Current LOS: 5 Anticipated DC Date: 04-02-2018 Planned Disposition: Home Primary Insurance: [facility] MEDICARE SOLUTIONS Discharge Planning Comments: CM MET WITH PATIENT REGARDING D/C NEEDS AND PLANS. PATIENT STATED HE LIVES WITH HIS (FANY) AND SHE WILL DRIVE HIM HOME AT DISCHARGE. PATIENT STATED HE HAS ONE STEP TO ENTER HOME AND NO STAIRS INSIDE. PATIENT IS INDEPENDENT WITH HIS CARE AND HAS A WALKER, SHOWER CHAIR, GLUCOMETER AT HOME. PATIENT IS HAVING SURGERY THIS WEEK AND WANTS TO SEE IF HE NEEDS HOME HEALTH AT THAT TIME AND WILL DISCUSS WITH HIS . CM WILL CONTINUE TO FOLLOW PATIENT WITH D/C NEEDS AND PLANS. PCP DR. COTY PEÑA AT [facility] [place] ([place]) C [phone] Wood Grinder Operator: Rosalind Coelho DCPIA - Discharge Planning Initial Assessment Updated by [email or web address]: Rosalind Coelho on 03/28/18 6:04 pm * Is the patient Alert and Oriented? Yes * How many steps to enter\exit or inside your home? * PCP DR. ANSARI * Pharmacy [facility] * Preadmission Environment Home with Family * ADLs Independent * Equipment Glucometer Shower Chair Walker * List name and contact numbers for known caregivers / representatives who currently or will assist patient after discharge: F[facility] ([place]) C [phone] * Verbal permission to speak to the caregivers and representatives has been obtained from the patient. Yes * Community resources currently utilized None * Additional services required to return to the preadmission environment? Yes * Can the patient safely return to the preadmission environment? Yes * Has this patient been hospitalized within the prior 30 days at any hospital? No External Providers External Provider: [facility] Next Contact Date: Service Request Date: Service Type: Resolution: Reviewer: Comments: Last DP export: 04/12/18 2:54 p Patient Name: JOSE LUIS WRIGHT Page 32550 at 1635 All edits/amendments must be made on the electronic document DICTATION DATE: 04/12/18 163 DEBATE DIRECTOR: VETO 04/12/18 1635 RPT#: [id number] DC DATE: STATUS: ADM IN [facility] [address] [place] [address] END OF REPORT
--- NOTE | 2018-04-12 17:01 | MORECARE ---
CASE MANAGEMENT DISCHARGE SUMMARY PATIENT: JOSE LUIS WRIGHT UNIT: [id number] ADM DATE: 03/23/18 AGE: 77 : 38 SEX: M ROOM/BED: D.[facility] AUTHOR: DAVE,DOC PHYSICIAN: REFERRING PHYSICIAN: TIARA FERNANDEZ MD DATE OF SERVICE: 04/12/18 Discharge Plan Patient Name: JOSE LUIS WRIGHT Facility: [facility]:[place] : 1940 Planned Disposition: Home Anticipated Discharge Date: 04/02/18 Discharge Date: Expected LOS: 10 Initial Reviewer: [id number] Initial Review Date: 03/28/2018 Generated: 04/12/18 6:01 pm Comments DCP- Discharge Planning Updated by [id number]: Noreen Montejo on 04/12/18 4:[address] CM spoke with Latesha from Inpatient Rehab she states that she has spoke with [facility] twice today trying to get auth for rehab. She is still awaiting determination. DCP- Discharge Planning Updated by [email or web address]: Noreen Montejo on 04/11/18 9:[address] CM called and spoke with Nicole with Inpatient Rehab. She stated they are still awaiting [facility] determination. She stated she would call and let us know as soon as they find out something. CM will continue to follow and assist as needed with discharge planning / needs. DCP- Discharge Planning Updated by [email or web address]: Noreen Montejo on 04/10/18 4:[address] CM spoke with Latesha in rehab regarding eval. Latesha stated she is waiting to hear back from insurance for approval. CM will continue to follow and assist as needed with discharge planning / needs. DCP- Discharge Planning Updated by [email or web address]: Rosalind Coelho on 03/28/18 5:[address] Patient Name: JOSE LUIS WRIGHT Admission Status: ER Accout number: [id number] Admission Date: 03-23-2018 : 1940 Admission Diagnosis: Attending: ALAYNA FERNANDEZ Current LOS: 5 Anticipated DC Date: 04-02-2018 Planned Disposition: Home Primary Insurance: [facility] MEDICARE SOLUTIONS Discharge Planning Comments: CM MET WITH PATIENT REGARDING D/C NEEDS AND PLANS. PATIENT STATED HE LIVES WITH HIS (FANY) AND SHE WILL DRIVE HIM HOME AT DISCHARGE. PATIENT STATED HE HAS ONE STEP TO ENTER HOME AND NO STAIRS INSIDE. PATIENT IS INDEPENDENT WITH HIS CARE AND HAS A WALKER, SHOWER CHAIR, GLUCOMETER AT HOME. PATIENT IS HAVING SURGERY THIS WEEK AND WANTS TO SEE IF HE NEEDS HOME HEALTH AT THAT TIME AND WILL DISCUSS WITH HIS . CM WILL CONTINUE TO FOLLOW PATIENT WITH D/C NEEDS AND PLANS. PCP DR. COTY PEÑA AT [facility] [place] ([place]) [phone] Watershed Coordinator: Rosalind Coelho DCPIA - Discharge Planning Initial Assessment Updated by [email or web address]: Rosalind Coelho on 03/28/18 6:04 pm * Is the patient Alert and Oriented? Yes * How many steps to enter\exit or inside your home? * PCP DR. ANSARI * Pharmacy [facility] * Preadmission Environment Home with Family * ADLs Independent * Equipment Glucometer Shower Chair Walker * List name and contact numbers for known caregivers / representatives who currently or will assist patient after discharge: FANY ([place]) [phone] * Verbal permission to speak to the caregivers and representatives has been obtained from the patient. Yes * Community resources currently utilized None * Additional services required to return to the preadmission environment? Yes * Can the patient safely return to the preadmission environment? Yes * Has this patient been hospitalized within the prior 30 days at any hospital? No Last DP export: 04/12/18 3:35 p Patient Name: JOSE LUIS WRIGHT Page 10142 at 1701 All edits/amendments must be made on the electronic document DICTATION DATE: 04/12/181699 NETWORKS COMPUTER CONSULTANT: VETO 04/12/181699 RPT#: [id number] CA DATE: STATUS: ADM IN [facility] [address] [place] [address] END OF REPORT
--- NOTE | 2018-04-12 17:17 | MORECARE ---
CASE MANAGEMENT DISCHARGE SUMMARY PATIENT: JOSE LUIS WRIGHT UNIT: [id number] ADM DATE: 03/23/18 AGE: 77 : 38 SEX: M ROOM/BED: D.CV02 AUTHOR: DAVE,DOC PHYSICIAN: REFERRING PHYSICIAN: TIARA FERNANDEZ MD DATE OF SERVICE: 04/12/18 Discharge Plan Patient Name: JOSE LUIS WRIGHT Facility: [facility]:[place] : 1940 Planned Disposition: Home Anticipated Discharge Date: 04/02/18 Discharge Date: Expected LOS: 10 Initial Reviewer: [email or web address] Initial Review Date: 03/28/2018 Generated: 04/12/18 6:17 pm Comments DCP- Discharge Planning Updated by [email or web address]: Noreen Montejo on 04/12/18 4:[address] CM received request to find out rae of Eliquis 5 mg twice daily with patients insurance. CM finally got an answer that it is covered and the cost would be $30.00 month for 60 tabs @ [facility]. CM was also notified to work on Home [facility]. [facility] will admit patient on Friday 04/14. CM faxed over clinical and facesheet requested to [facility] [phone] fax [phone]. Received notice that patient will need Home 02. Request sent to [facility] [phone] CM faxed [phone] to [facility] Schroeder walk test, facesheet and clinicals as requested. IMM explained and served 04/12/18 @ 8724. CM will continue to follow and assist as needed with discharge planning / needs. DCP- Discharge Planning Updated by [email or web address]: Noreen Montejo on 04/12/18 4:[address] CM spoke with Latesha from Inpatient Rehab she states that she has spoke with [facility] twice today trying to get auth for rehab. She is still awaiting determination. DCP- Discharge Planning Updated by [email or web address]: Noreen Montejo on 04/11/18 9:[address] CM called and spoke with Nicole with Inpatient Rehab. She stated they are still awaiting [facility] determination. She stated she would call and let us know as soon as they find out something. CM will continue to follow and assist as needed with discharge planning / needs. DCP- Discharge Planning Updated by [email or web address]: Noreen Montejo on 04/10/18 4:[address] CM spoke with Latesha in rehab regarding eval. Latesha stated she is waiting to hear back from insurance for approval. CM will continue to follow and assist as needed with discharge planning / needs. DCP- Discharge Planning Updated by [email or web address]: Rosalind Coelho on 03/28/18 5:[address] Patient Name: JOSE LUIS WRIGHT Admission Status: ER Accout number: [id number] Admission Date: 03-23-2018 : 1940 Admission Diagnosis: Attending: ALAYNA FERNANDEZ Current LOS: 5 Anticipated DC Date: 04-02-2018 Planned Disposition: Home Primary Insurance: [facility] MEDICARE SOLUTIONS Discharge Planning Comments: CM MET WITH PATIENT REGARDING D/C NEEDS AND PLANS. PATIENT STATED HE LIVES WITH HIS (FANY) AND SHE WILL DRIVE HIM HOME AT DISCHARGE. PATIENT STATED HE HAS ONE STEP TO ENTER HOME AND NO STAIRS INSIDE. PATIENT IS INDEPENDENT WITH HIS CARE AND HAS A WALKER, SHOWER CHAIR, GLUCOMETER AT HOME. PATIENT IS HAVING SURGERY THIS WEEK AND WANTS TO SEE IF HE NEEDS HOME HEALTH AT THAT TIME AND WILL DISCUSS WITH HIS . CM WILL CONTINUE TO FOLLOW PATIENT WITH D/C NEEDS AND PLANS. PCP DR. COTY PEÑA AT [facility] [place] ([place]) [phone] Double Bass Player: Rosalind Coelho DCPIA - Discharge Planning Initial Assessment Updated by [email or web address]: Rosalind Coelho on 03/28/18 6:04 pm * Is the patient Alert and Oriented? Yes * How many steps to enter\exit or inside your home? * PCP DR. ANSARI * Pharmacy [facility] * Preadmission Environment Home with Family * ADLs Independent * Equipment Glucometer Shower Chair Walker * List name and contact numbers for known caregivers / representatives who currently or will assist patient after discharge: FANY ([place]) C [phone] * Verbal permission to speak to the caregivers and representatives has been obtained from the patient. Yes * Community resources currently utilized None * Additional services required to return to the preadmission environment? Yes * Can the patient safely return to the preadmission environment? Yes * Has this patient been hospitalized within the prior 30 days at any hospital? No Coverage Notice Reviewer: [email or web address] Nydia Montejo Notice Issued Date-Time: 04/12/2018 16:48 Notice Type: IM Discharge Notice Notice Delivered To: Patient Relationship to Patient: Self Pharmaceutical Sales Specialist Name: Delivery Method: HAND - Hand Delivered Imani Days: Prior Verbal Notification: Recipient Understood Notice: Yes Recipient Signature: Yes Med Rec Note Co-signed by Attending: Coverage Notice Comment: Last DP export: 04/12/18 4:01 p Patient Name: JOSE LUIS WRIGHT Page 97803 at 1717 All edits/amendments must be made on the electronic document DICTATION DATE: 04/12/181715 STATION AIR TRAFFIC CONTROL SPECIALIST: VETO 04/12/181715 RPT#: [id number] DC DATE: STATUS: ADM IN [facility] [address] [place] [address] END OF REPORT
[2018-04-12 19:10] LABS: FACTOR II DNA ANALYSIS Negative (())
[2018-04-13] VITALS (30 sets, daily range): BP systolic 97–154; BP diastolic 43–85
[2018-04-13 03:40] LABS: BASOPHILS 0.4 % (0-2); EOSINOPHILS 3.6 % (0-7); HEMATOCRIT 32.2 % (42.0-54.0); HEMOGLOBIN 10.6 g/dL (13.5-17.5); IMMATURE GRANULOCYTES 0.3 % (0-5); LYMPHOCYTES 19.4 % (15-50); MCHC 32.9 g/dL (31.0-37.0); MCV 88.2 fL (80.0-100.0); MONOCYTES 7.3 % (2-11); PLATELET COUNT 325 10x3/uL (130-400); RBC 3.65 10x6/uL (4.20-6.10); RDW 13.4 % (11.5-14.5); WBC 9.8 10x3/uL (4.8-10.8)
[2018-04-13 03:55] LABS: ALBUMIN 2.4 g/dL (3.4-5.0); ANION GAP 14.1 mmol/L (8-16); BILIRUBIN - TOTAL 0.67 mg/dL (0.2-1.3); CARBON DIOXIDE 26.2 mmol/L (21.0-32.0); CREATININE - SERUM 1.5 mg/dL (0.6-1.3); POTASSIUM - SERUM 4.3 mmol/L (3.5-5.1); PROTEIN - SERUM 5.6 g/dL (6.4-8.2)
--- NOTE | 2018-04-13 16:21 | MORECARE ---
CASE MANAGEMENT DISCHARGE SUMMARY PATIENT: JOSE LUIS WRIGHT UNIT: [id number] ADM DATE: 03/23/18 AGE: 77 : 38 SEX: M ROOM/BED: D.CV02 AUTHOR: DAVE,DOC PHYSICIAN: REFERRING PHYSICIAN: TIARA FERNANDEZ MD DATE OF SERVICE: 04/13/18 Discharge Plan Patient Name: JOSE LUIS WRIGHT Facility: [facility]:[place] : 1940 Planned Disposition: Home Anticipated Discharge Date: 04/02/18 Discharge Date: Expected LOS: 10 Initial Reviewer: [email or web address] Initial Review Date: 03/28/2018 Generated: 04/13/18 5:21 pm Comments DCP- Discharge Planning Updated by [email or web address]: Shawna Shabazz on 04/13/18 3:[address] CM was notified by Latesha with [facility] IRF that patient's insurance company denied him for IRF. CM called and spoke with Monica / Dr. Louis about doing peer to peer to appeal denial for IRF. Monica informed CM that Dr. Louis wanted to wait on IRF d/t change in patient's condition. Will re-initiate auth request when patient is medically stable if still appropriate. CM will continue to follow and assist as needed with discharge planning / needs. CM called [facility]. Spoke with Shyann and let her know that patient would not be discharged home at this time. Shyann verbalized understanding. DCP- Discharge Planning Updated by [email or web address]: Noreen Montejo on 04/12/18 4:[address] CM received request to find out rae of Eliquis 5 mg twice daily with patients insurance. CM finally got an answer that it is covered and the cost would be $30.00 month for 60 tabs @ [facility]. CM was also notified to work on Home Health. [facility] will admit patient on Friday 04/14. CM faxed over clinical and facesheet requested to [facility] [phone] fax [phone]. Received notice that patient will need Home 02. Request sent to [facility] [phone] CM faxed [phone] to Denise R walk test, facesheet and clinicals as requested. IMM explained and served 04/12/18 @ 1648. CM will continue to follow and assist as needed with discharge planning / needs. DCP- Discharge Planning Updated by [email or web address]: Noreen Montejo on 04/12/18 4:[address] CM spoke with Latesha from Inpatient Rehab she states that she has spoke with [facility] twice today trying to get auth for rehab. She is still awaiting determination. DCP- Discharge Planning Updated by [id number]: Noreen Montejo on 04/11/18 9:[address] CM called and spoke with Nicole with Inpatient Rehab. She stated they are still awaiting [facility] determination. She stated she would call and let us know as soon as they find out something. CM will continue to follow and assist as needed with discharge planning / needs. DCP- Discharge Planning Updated by [email or web address]: Noreen Montejo on 04/10/18 4:[address] CM spoke with Latesha in rehab regarding eval. Latesha stated she is waiting to hear back from insurance for approval. CM will continue to follow and assist as needed with discharge planning / needs. DCP- Discharge Planning Updated by [email or web address]: Rosalind Coelho on 03/28/18 5:[address] Patient Name: JOSE LUIS WRIGHT Admission Status: ER Accout number: [id number] Admission Date: 03-23-2018 : 1940 Admission Diagnosis: Attending: ALAYNA FERNANDEZ Current LOS: 5 Anticipated DC Date: 04-02-2018 Planned Disposition: Home Primary Insurance: [facility] MEDICARE SOLUTIONS Discharge Planning Comments: CM MET WITH PATIENT REGARDING D/C NEEDS AND PLANS. PATIENT STATED HE LIVES WITH HIS (FANY) AND SHE WILL DRIVE HIM HOME AT DISCHARGE. PATIENT STATED HE HAS ONE STEP TO ENTER HOME AND NO STAIRS INSIDE. PATIENT IS INDEPENDENT WITH HIS CARE AND HAS A WALKER, SHOWER CHAIR, GLUCOMETER AT HOME. PATIENT IS HAVING SURGERY THIS WEEK AND WANTS TO SEE IF HE NEEDS HOME HEALTH AT THAT TIME AND WILL DISCUSS WITH HIS . CM WILL CONTINUE TO FOLLOW PATIENT WITH D/C NEEDS AND PLANS. PCP DR. COTY PEÑA AT [facility] ([place]) [phone] Transportation Program Director: Rosalind Coelho DCPIA - Discharge Planning Initial Assessment Updated by [email or web address]: Rosalind Coelho on 03/28/18 6:04 pm * Is the patient Alert and Oriented? Yes * How many steps to enter\exit or inside your home? * PCP DR. ANSARI * Pharmacy [facility] * Preadmission Environment Home with Family * ADLs Independent * Equipment Glucometer Shower Chair Walker * List name and contact numbers for known caregivers / representatives who currently or will assist patient after discharge: FANY ([place]) C [phone] H [phone] * Verbal permission to speak to the caregivers and representatives has been obtained from the patient. Yes * Community resources currently utilized None * Additional services required to return to the preadmission environment? Yes * Can the patient safely return to the preadmission environment? Yes * Has this patient been hospitalized within the prior 30 days at any hospital? No Coverage Notice Reviewer: [id number] Ndyia Montejo Notice Issued Date-Time: 04/12/2018 16:48 Notice Type: IM Discharge Notice Notice Delivered To: Patient Relationship to Patient: Self Public Affairs Specialist Name: Delivery Method: HAND - Hand Delivered Imani Days: Prior Verbal Notification: Recipient Understood Notice: Yes Recipient Signature: Yes Med Rec Note Co-signed by Attending: Coverage Notice Comment: Last DP export: 04/12/18 4:17 p Patient Name: JOSE LUIS WRIGHT Page 00689 at 1621 All edits/amendments must be made on the electronic document DICTATION DATE: 04/13/181619 RECEPTION CENTRE MANAGER: VETO 04/13/181619 RPT#: [id number] DC DATE: STATUS: ADM IN [facility] [address] [place] [address] END OF REPORT
[2018-04-14] VITALS (30 sets, daily range): BP systolic 126–155; BP diastolic 42–84
[2018-04-14 06:13] LABS: HEMATOCRIT 33.3 % (42.0-54.0); HEMOGLOBIN 10.9 g/dL (13.5-17.5); MCH 29.1 pg (26.0-34.0); MCHC 32.7 g/dL (31.0-37.0); MCV 88.8 fL (80.0-100.0); MEAN PLATELET VOLUME 9.5 fL (7.4-10.4); RBC 3.75 10x6/uL (4.20-6.10); RDW 13.6 % (11.5-14.5)
[2018-04-14 06:40] LABS: ALBUMIN 2.6 g/dL (3.4-5.0); ANION GAP 16.2 mmol/L (8-16); BILIRUBIN - TOTAL 0.72 mg/dL (0.2-1.3); CALCIUM 7.8 mg/dL (8.5-10.1); CARBON DIOXIDE 24.5 mmol/L (21.0-32.0); CREATININE - SERUM 1.6 mg/dL (0.6-1.3); MAGNESIUM - SERUM 1.6 mg/dL (1.8-2.4); POTASSIUM - SERUM 4.7 mmol/L (3.5-5.1)
[2018-04-14 17:21] LABS: MAGNESIUM - SERUM 1.8 mg/dL (1.8-2.4); POTASSIUM - SERUM 4.3 mmol/L (3.5-5.1)
[2018-04-15] VITALS (27 sets, daily range): BP systolic 114–157; BP diastolic 45–72
[2018-04-15 06:27] LABS: HEMATOCRIT 35.3 % (42.0-54.0); HEMOGLOBIN 11.4 g/dL (13.5-17.5); MCH 28.7 pg (26.0-34.0); MCHC 32.3 g/dL (31.0-37.0); MCV 88.9 fL (80.0-100.0); MEAN PLATELET VOLUME 9.7 fL (7.4-10.4); RBC 3.97 10x6/uL (4.20-6.10); RDW 13.3 % (11.5-14.5); WBC 10.8 10x3/uL (4.8-10.8)
[2018-04-15 06:41] LABS: ALBUMIN 2.8 g/dL (3.4-5.0); BILIRUBIN - TOTAL 0.89 mg/dL (0.2-1.3); CALCIUM 8.4 mg/dL (8.5-10.1); CARBON DIOXIDE 27.3 mmol/L (21.0-32.0); CREATININE - SERUM 1.5 mg/dL (0.6-1.3); PROTEIN - SERUM 6.4 g/dL (6.4-8.2)
[2018-04-15 06:43] LABS: ANION GAP 13.7 mmol/L (8-16)
[2018-04-16] VITALS (22 sets, daily range): BP systolic 102–148; BP diastolic 45–93
[2018-04-16 06:36] LABS: HEMATOCRIT 32.5 % (42.0-54.0); HEMOGLOBIN 10.6 g/dL (13.5-17.5); MCH 28.5 pg (26.0-34.0); MCHC 32.6 g/dL (31.0-37.0); MCV 87.4 fL (80.0-100.0); MEAN PLATELET VOLUME 9.4 fL (7.4-10.4); RBC 3.72 10x6/uL (4.20-6.10); RDW 13.4 % (11.5-14.5); WBC 8.7 10x3/uL (4.8-10.8)
[2018-04-16 07:12] LABS: ALBUMIN 2.6 g/dL (3.4-5.0); ANION GAP 13.3 mmol/L (8-16); BILIRUBIN - TOTAL 0.7 mg/dL (0.2-1.3); CALCIUM 8.1 mg/dL (8.5-10.1); CARBON DIOXIDE 27.7 mmol/L (21.0-32.0); CREATININE - SERUM 1.4 mg/dL (0.6-1.3); PROTEIN - SERUM 5.8 g/dL (6.4-8.2)
--- NOTE | 2018-04-16 12:18 | MORECARE ---
CASE MANAGEMENT DISCHARGE SUMMARY PATIENT: JOSE LUIS WRIGHT UNIT: [id number] ADM DATE: 03/23/18 AGE: 77 : 38 SEX: M ROOM/BED: D.CV02 AUTHOR: DAVE,DOC PHYSICIAN: REFERRING PHYSICIAN: TIARA FERNANDEZ MD DATE OF SERVICE: 04/16/18 Discharge Plan Patient Name: JOSE LUIS WRIGHT Facility: [facility]:[place] : 1940 Planned Disposition: Home Anticipated Discharge Date: 04/02/18 Discharge Date: Expected LOS: 10 Initial Reviewer: [email or web address] Initial Review Date: 03/28/2018 Generated: 04/16/18 1:17 pm Comments DCP- Discharge Planning Updated by [email or web address]: Shawna Shabazz on 04/13/18 3:[address] CM was notified by Latesha with [facility] IRF that patient's insurance company denied him for IRF. CM called and spoke with Monica / Dr. Louis about doing peer to peer to appeal denial for IRF. Monica informed CM that Dr. Louis wanted to wait on IRF d/t change in patient's condition. Will re-initiate auth request when patient is medically stable if still appropriate. CM will continue to follow and assist as needed with discharge planning / needs. CM called [facility]. Spoke with Shyann and let her know that patient would not be discharged home at this time. Shyann verbalized understanding. DCP- Discharge Planning Updated by [email or web address]: Noreen Montejo on 04/12/18 4:[address] CM received request to find out rae of Eliquis 5 mg twice daily with patients insurance. CM finally got an answer that it is covered and the cost would be $30.00 month for 60 tabs @ [facility]. CM was also notified to work on Home Health. [facility] will admit patient on Friday 04/14. CM faxed over clinical and facesheet requested to [facility] [phone] fax [phone]. Received notice that patient will need Home 02. Request sent to [facility] [phone] CM faxed [phone] to Denise R walk test, facesheet and clinicals as requested. IMM explained and served 04/12/18 @ 1648. CM will continue to follow and assist as needed with discharge planning / needs. DCP- Discharge Planning Updated by [id number]: Noreen Montejo on 04/12/18 4:[address] CM spoke with Latesha from Inpatient Rehab she states that she has spoke with [facility] twice today trying to get auth for rehab. She is still awaiting determination. DCP- Discharge Planning Updated by [id number]: Noreen Montejo on 04/11/18 9:[address] CM called and spoke with Nicole with Inpatient Rehab. She stated they are still awaiting [facility] determination. She stated she would call and let us know as soon as they find out something. CM will continue to follow and assist as needed with discharge planning / needs. DCP- Discharge Planning Updated by [id number]: Noreen Montejo on 04/10/18 4:[address] CM spoke with Latesha in rehab regarding eval. Latesha stated she is waiting to hear back from insurance for approval. CM will continue to follow and assist as needed with discharge planning / needs. DCP- Discharge Planning Updated by [email or web address]: Rosalind Coelho on 03/28/18 5:[address] Patient Name: JOSE LUIS WRIGHT Admission Status: ER Accout number: [id number] Admission Date: 03-23-2018 : 1940 Admission Diagnosis: Attending: ALAYNA FERNANDEZ Current LOS: 5 Anticipated DC Date: 04-02-2018 Planned Disposition: Home Primary Insurance: [facility] MEDICARE SOLUTIONS Discharge Planning Comments: CM MET WITH PATIENT REGARDING D/C NEEDS AND PLANS. PATIENT STATED HE LIVES WITH HIS (FANY) AND SHE WILL DRIVE HIM HOME AT DISCHARGE. PATIENT STATED HE HAS ONE STEP TO ENTER HOME AND NO STAIRS INSIDE. PATIENT IS INDEPENDENT WITH HIS CARE AND HAS A WALKER, SHOWER CHAIR, GLUCOMETER AT HOME. PATIENT IS HAVING SURGERY THIS WEEK AND WANTS TO SEE IF HE NEEDS HOME HEALTH AT THAT TIME AND WILL DISCUSS WITH HIS . CM WILL CONTINUE TO FOLLOW PATIENT WITH D/C NEEDS AND PLANS. PCP DR. COTY PEÑA AT [facility] ([place]) [phone] Job Forwarder: Rosalind Coelho DCPIA - Discharge Planning Initial Assessment Updated by [id number]: Rosalind Coelho on 03/28/18 6:04 pm * Is the patient Alert and Oriented? Yes * How many steps to enter\exit or inside your home? * PCP DR. ANSARI * Pharmacy [facility] * Preadmission Environment Home with Family * ADLs Independent * Equipment Glucometer Shower Chair Walker * List name and contact numbers for known caregivers / representatives who currently or will assist patient after discharge: FANY ([place]) C [phone] H [phone] * Verbal permission to speak to the caregivers and representatives has been obtained from the patient. Yes * Community resources currently utilized None * Additional services required to return to the preadmission environment? Yes * Can the patient safely return to the preadmission environment? Yes * Has this patient been hospitalized within the prior 30 days at any hospital? No External Providers External Provider: OTHER-OTHER Next Contact Date: Service Request Date: Service Type: Resolution: Reviewer: Comments: Coverage Notice Reviewer: [id number] Nydia Montejo Notice Issued Date-Time: 04/12/2018 16:48 Notice Type: IM Discharge Notice Notice Delivered To: Patient Relationship to Patient: Self Md Pediatric Allergist Name: Delivery Method: HAND - Hand Delivered Imani Days: Prior Verbal Notification: Recipient Understood Notice: Yes Recipient Signature: Yes Med Rec Note Co-signed by Attending: Coverage Notice Comment: Last DP export: 04/13/18 3:21 p Patient Name: JOSE LUIS WRIGHT Page [id number] at 1218 All edits/amendments must be made on the electronic document DICTATION DATE: 04/16/181216 RING FACER: VETO 04/16/187 RPT#: [id number] DC DATE: STATUS: ADM IN [facility] [address] [place] [address] END OF REPORT
--- NOTE | 2018-04-16 19:07 | MORECARE ---
CASE MANAGEMENT DISCHARGE SUMMARY PATIENT: JOSE LUIS WRIGHT UNIT: [id number] ADM DATE: 03/23/18 AGE: 77 : 38 SEX: M ROOM/BED: D.CV02 AUTHOR: DAVE,DOC PHYSICIAN: REFERRING PHYSICIAN: TIARA FERNANDEZ MD DATE OF SERVICE: 04/16/18 Discharge Plan Patient Name: JOSE LUIS WRIGHT Facility: [facility]:[place] : 1940 Planned Disposition: Home Anticipated Discharge Date: 04/02/18 Discharge Date: Expected LOS: 10 Initial Reviewer: [id number] Initial Review Date: 03/28/2018 Generated: 04/16/18 8:07 pm Comments DCP- Discharge Planning Updated by [email or web address]: Noreen Montejo on 04/16/18 6:[address] Late Entry 04/16/18 CM was notified to get life vest for patient. CM notified [facility] and spoke with Ginny [phone]. CM got order completed by Dr. Harp and faxed records to Ginny. Ginny stated she would try to have vest delivered today. CM spoke with nursing and requested if vest arrives to be notified. CM will need to get another walk test for home 02 and set up . CM will continue to follow and assist with discharge planning / needs. Life Vest arrived at unit @ 1820. Rep explained and did patient teaching at bedside. Nursing asked Rep to call patients because she had questions regarding insurance coverage. DCP- Discharge Planning Updated by [email or web address]: Shawna Shabazz on 04/13/18 3:[address] CM was notified by Latesha with [facility] IRF that patient's insurance company denied him for IRF. CM called and spoke with Monica / Dr. Louis about doing peer to peer to appeal denial for IRF. Monica informed CM that Dr. Louis wanted to wait on IRF d/t change in patient's condition. Will re-initiate auth request when patient is medically stable if still appropriate. CM will continue to follow and assist as needed with discharge planning / needs. CM called [facility]. Spoke with Shyann and let her know that patient would not be discharged home at this time. Shyann verbalized understanding. DCP- Discharge Planning Updated by [email or web address]: Noreen Montejo on 04/12/18 4:[address] CM received request to find out rae of Eliquis 5 mg twice daily with patients insurance. CM finally got an answer that it is covered and the cost would be $30.00 month for 60 tabs @ [facility]. CM was also notified to work on Home Health. [facility] will admit patient on Friday 04/14. CM faxed over clinical and facesheet requested to [facility] [phone] fax [phone]. Received notice that patient will need Home 02. Request sent to [facility] [phone] CM faxed [phone] to Denise walk test, facesheet and clinicals as requested. IMM explained and served 04/12/18 @ 8875. CM will continue to follow and assist as needed with discharge planning / needs. DCP- Discharge Planning Updated by [email or web address]: Noreen Montejo on 04/12/18 4:[address] CM spoke with Latesha from Inpatient Rehab she states that she has spoke with [facility] twice today trying to get auth for rehab. She is still awaiting determination. DCP- Discharge Planning Updated by [id number]: Noreen Montejo on 04/11/18 9:[address] CM called and spoke with Nicole with Inpatient Rehab. She stated they are still awaiting [facility] determination. She stated she would call and let us know as soon as they find out something. CM will continue to follow and assist as needed with discharge planning / needs. DCP- Discharge Planning Updated by [email or web address]: Noreen Montejo on 04/10/18 4:[address] CM spoke with Latesha in rehab regarding eval. Latesha stated she is waiting to hear back from insurance for approval. CM will continue to follow and assist as needed with discharge planning / needs. DCP- Discharge Planning Updated by [id number]: Rosalind Coelho on 03/28/18 5:[address] Patient Name: JOSE LUIS WRIGHT Admission Status: ER Accout number: [id number] Admission Date: 03-23-2018 : 1940 Admission Diagnosis: Attending: ALAYNA FERNANDEZ Current LOS: 5 Anticipated DC Date: 04-02-2018 Planned Disposition: Home Primary Insurance: [facility] MEDICARE SOLUTIONS Discharge Planning Comments: CM MET WITH PATIENT REGARDING D/C NEEDS AND PLANS. PATIENT STATED HE LIVES WITH HIS (FANY) AND SHE WILL DRIVE HIM HOME AT DISCHARGE. PATIENT STATED HE HAS ONE STEP TO ENTER HOME AND NO STAIRS INSIDE. PATIENT IS INDEPENDENT WITH HIS CARE AND HAS A WALKER, SHOWER CHAIR, GLUCOMETER AT HOME. PATIENT IS HAVING SURGERY THIS WEEK AND WANTS TO SEE IF HE NEEDS HOME HEALTH AT THAT TIME AND WILL DISCUSS WITH HIS . CM WILL CONTINUE TO FOLLOW PATIENT WITH D/C NEEDS AND PLANS. PCP DR. COTY PEÑA AT [facility] FANY (SPOUSE) [phone] Magnetic Observer: Rosalind Coelho DCPIA - Discharge Planning Initial Assessment Updated by [email or web address]: Rosalind Coelho on 03/28/18 6:04 pm * Is the patient Alert and Oriented? Yes * How many steps to enter\exit or inside your home? * PCP DR. ANSARI * Pharmacy [facility] * Preadmission Environment Home with Family * ADLs Independent * Equipment Glucometer Shower Chair Walker * List name and contact numbers for known caregivers / representatives who currently or will assist patient after discharge: FANY (SPOUSE) [phone] * Verbal permission to speak to the caregivers and representatives has been obtained from the patient. Yes * Community resources currently utilized None * Additional services required to return to the preadmission environment? Yes * Can the patient safely return to the preadmission environment? Yes * Has this patient been hospitalized within the prior 30 days at any hospital? No Coverage Notice Reviewer: [id number] Nydia Montejo Notice Issued Date-Time: 04/12/2018 16:48 Notice Type: IM Discharge Notice Notice Delivered To: Patient Relationship to Patient: Self Hands And Dial Inspector Name: Delivery Method: HAND - Hand Delivered Imani Days: Prior Verbal Notification: Recipient Understood Notice: Yes Recipient Signature: Yes Med Rec Note Co-signed by Attending: Coverage Notice Comment: Last DP export: 04/16/18 11:18 a Patient Name: JOSE LUIS WRIGHT Page [id number] at 1907 All edits/amendments must be made on the electronic document DICTATION DATE: 04/16/181905 SHEET TAILER: VETO 04/16/181905 RPT#: [id number] DC DATE: STATUS: ADM IN [facility] [address] [place] [address] END OF REPORT
[2018-04-17 03:00] VITALS: BP 146/49
[2018-04-17 07:01] VITALS: BP 134/66
[2018-04-17 09:31] VITALS: BP 135/60
[2018-04-17 10:01] VITALS: BP 126/60
--- NOTE | 2018-04-17 10:40 | MORECARE ---
CASE MANAGEMENT DISCHARGE SUMMARY PATIENT: JOSE LUIS WRIGHT UNIT: [id number] ADM DATE: 03/23/18 AGE: 77 : 38 SEX: M ROOM/BED: D.CV02 AUTHOR: DAVE,DOC PHYSICIAN: REFERRING PHYSICIAN: TIARA FERNANDEZ MD DATE OF SERVICE: 04/17/18 Discharge Plan Patient Name: JOSE LUIS WRIGHT Facility: [facility]:[place] : 1940 Planned Disposition: Home Health Service Anticipated Discharge Date: 04/02/18 Discharge Date: Expected LOS: 10 Initial Reviewer: [email or web address] Initial Review Date: 03/28/2018 Generated: 04/17/18 11:40 am Comments DCP- Discharge Planning Updated by [email or web address]: Noreen Montejo on 04/16/18 6:[address] Late Entry 04/16/18 CM was notified to get life vest for patient. CM notified [facility] and spoke with Ginny [phone]. CM got order completed by Dr. Harp and faxed records to Ginny. Ginny stated she would try to have vest delivered today. CM spoke with nursing and requested if vest arrives to be notified. CM will need to get another walk test for home 02 and set up . CM will continue to follow and assist with discharge planning / needs. Life Vest arrived at unit @ 1820. Rep explained and did patient teaching at bedside. Nursing asked Rep to call patients because she had questions regarding insurance coverage. DCP- Discharge Planning Updated by [email or web address]: Shawna Shabazz on 04/13/18 3:[address] CM was notified by Latesha with [facility] IRF that patient's insurance company denied him for IRF. CM called and spoke with Monica / Dr. Louis about doing peer to peer to appeal denial for IRF. Monica informed CM that Dr. Louis wanted to wait on IRF d/t change in patient's condition. Will re-initiate auth request when patient is medically stable if still appropriate. CM will continue to follow and assist as needed with discharge planning / needs. CM called [facility]. Spoke with Shyann and let her know that patient would not be discharged home at this time. Shyann verbalized understanding. DCP- Discharge Planning Updated by [id number]: Noreen Montejo on 04/12/18 4:[address] CM received request to find out rae of Eliquis 5 mg twice daily with patients insurance. CM finally got an answer that it is covered and the cost would be $30.00 month for 60 tabs @ [facility]. CM was also notified to work on Home Health. [facility] will admit patient on Friday 04/14. CM faxed over clinical and facesheet requested to [facility] [phone] fax [phone]. Received notice that patient will need Home 02. Request sent to [facility] [phone] CM faxed [phone] to Denise walk test, facesheet and clinicals as requested. IMM explained and served 04/12/18 @ 8315. CM will continue to follow and assist as needed with discharge planning / needs. DCP- Discharge Planning Updated by [id number]: Noreen Montejo on 04/12/18 4:[address] CM spoke with Latesha from Inpatient Rehab she states that she has spoke with [facility] twice today trying to get auth for rehab. She is still awaiting determination. DCP- Discharge Planning Updated by [id number]: Noreen Montejo on 04/11/18 9:[address] CM called and spoke with Nicole with Inpatient Rehab. She stated they are still awaiting [facility] determination. She stated she would call and let us know as soon as they find out something. CM will continue to follow and assist as needed with discharge planning / needs. DCP- Discharge Planning Updated by [email or web address]: Noreen Montejo on 04/10/18 4:[address] CM spoke with Latesha in rehab regarding eval. Latesha stated she is waiting to hear back from insurance for approval. CM will continue to follow and assist as needed with discharge planning / needs. DCP- Discharge Planning Updated by [email or web address]: Rosalind Coelho on 03/28/18 5:[address] Patient Name: JOSE LUIS WRIGHT Admission Status: ER Accout number: [id number] Admission Date: 03-23-2018 : 1940 Admission Diagnosis: Attending: ALAYNA FERNANDEZ Current LOS: 5 Anticipated DC Date: 04-02-2018 Planned Disposition: Home Primary Insurance: [facility] MEDICARE SOLUTIONS Discharge Planning Comments: CM MET WITH PATIENT REGARDING D/C NEEDS AND PLANS. PATIENT STATED HE LIVES WITH HIS (FANY) AND SHE WILL DRIVE HIM HOME AT DISCHARGE. PATIENT STATED HE HAS ONE STEP TO ENTER HOME AND NO STAIRS INSIDE. PATIENT IS INDEPENDENT WITH HIS CARE AND HAS A WALKER, SHOWER CHAIR, GLUCOMETER AT HOME. PATIENT IS HAVING SURGERY THIS WEEK AND WANTS TO SEE IF HE NEEDS HOME HEALTH AT THAT TIME AND WILL DISCUSS WITH HIS . CM WILL CONTINUE TO FOLLOW PATIENT WITH D/C NEEDS AND PLANS. PCP DR. COTY PEÑA AT [facility] F[place] (SPOUSE) [phone] Public Area Supervisor: Rosalind Coelho DCPIA - Discharge Planning Initial Assessment Updated by [id number]: Rosalind Coelho on 03/28/18 6:04 pm * Is the patient Alert and Oriented? Yes * How many steps to enter\exit or inside your home? * PCP DR. ANSARI * Pharmacy [facility] * Preadmission Environment Home with Family * ADLs Independent * Equipment Glucometer Shower Chair Walker * List name and contact numbers for known caregivers / representatives who currently or will assist patient after discharge: FANY (SPOUSE) [phone] * Verbal permission to speak to the caregivers and representatives has been obtained from the patient. Yes * Community resources currently utilized None * Additional services required to return to the preadmission environment? Yes * Can the patient safely return to the preadmission environment? Yes * Has this patient been hospitalized within the prior 30 days at any hospital? No Coverage Notice Reviewer: [id number] - Noreen Montejo Notice Issued Date-Time: 04/12/2018 16:48 Notice Type: IM Discharge Notice Notice Delivered To: Patient Relationship to Patient: Self Energy Specialist Name: Delivery Method: HAND - Hand Delivered Imani Days: Prior Verbal Notification: Recipient Understood Notice: Yes Recipient Signature: Yes Med Rec Note Co-signed by Attending: Coverage Notice Comment: Last DP export: 04/16/18 6:07 p Patient Name: JOSE LUIS WRIGHT Page 99416 at 1040 All edits/amendments must be made on the electronic document DICTATION DATE: 04/17/18 103 EMT DISPATCHER: VETO 04/17/18 1039 RPT#: [id number] DC DATE: STATUS: ADM IN [facility] [address] [place] [address] END OF REPORT
--- NOTE | 2018-04-17 10:50 | MORECARE ---
CASE MANAGEMENT DISCHARGE SUMMARY PATIENT: JOSE LUIS WRIGHT UNIT: [id number] ADM DATE: 03/23/18 AGE: 77 : 38 SEX: M ROOM/BED: D.CV02 AUTHOR: DAVE,DOC PHYSICIAN: REFERRING PHYSICIAN: TIARA FERNANDEZ MD DATE OF SERVICE: 04/17/18 Discharge Plan Patient Name: JOSE LUIS WRIGHT Facility: [facility]:[place] : 1940 Planned Disposition: Home Health Service Anticipated Discharge Date: 04/02/18 Discharge Date: Expected LOS: 10 Initial Reviewer: [email or web address] Initial Review Date: 03/28/2018 Generated: 04/17/18 11:50 am Comments DCP- Discharge Planning Updated by [email or web address]: Noreen Montejo on 04/17/18 9:[address] CM called [facility] spoke with Shyann. CM faxed updated clinical and Shyann stated they would admit him Monday04/18/18. CM called and spoke with Denise at [facility]. CM faxed updated walk test . Denise stated she would send someone with portable 02 tank to hospital room shortly. IMM explained and served 04/17/18 @ 1002. CM will continue to follow and assist as needed with discharge planning / needs. DCP- Discharge Planning Updated by [email or web address]: Noreen Montejo on 04/16/18 6:[address] Late Entry 04/16/18 CM was notified to get life vest for patient. CM notified [facility] and spoke with Ginny [phone]. CM got order completed by Dr. Harp and faxed records to Ginny. Ginny stated she would try to have vest delivered today. CM spoke with nursing and requested if vest arrives to be notified. CM will need to get another walk test for home 02 and set up HH. CM will continue to follow and assist with discharge planning / needs. Life Vest arrived at unit @ 1820. Rep explained and did patient teaching at bedside. Nursing asked Rep to call patients because she had questions regarding insurance coverage. DCP- Discharge Planning Updated by [id number]: Shawna Shabazz on 04/13/18 3:[address] CM was notified by Latesha with [facility] IR[facility] that patient's insurance company denied him for IRF. CM called and spoke with Monica / Dr. Louis about doing peer to peer to appeal denial for IRF. Monica informed CM that Dr. Louis wanted to wait on IRF d/t change in patient's condition. Will re-initiate auth request when patient is medically stable if still appropriate. CM will continue to follow and assist as needed with discharge planning / needs. CM called [facility]. Spoke with Shyann and let her know that patient would not be discharged home at this time. Shyann verbalized understanding. DCP- Discharge Planning Updated by [id number]: Noreen Montejo on 04/12/18 4:[address] CM received request to find out rae of Eliquis 5 mg twice daily with patients insurance. CM finally got an answer that it is covered and the cost would be $30.00 month for 60 tabs @ [facility]. CM was also notified to work on Home Health. [facility] will admit patient on Friday 04/14. CM faxed over clinical and facesheet requested to [facility] [phone] fax [phone]. Received notice that patient will need Home 02. Request sent to [facility] [phone] CM faxed [phone] to Denise R walk test, facesheet and clinicals as requested. IMM explained and served 04/12/18 @ 4668. CM will continue to follow and assist as needed with discharge planning / needs. DCP- Discharge Planning Updated by [id number]: Noreen Montejo on 04/12/18 4:[address] CM spoke with Latesha from Inpatient Rehab she states that she has spoke with [facility] twice today trying to get auth for rehab. She is still awaiting determination. DCP- Discharge Planning Updated by [email or web address]: Noreen Montejo on 04/11/18 9:[address] CM called and spoke with Nicole with Inpatient Rehab. She stated they are still awaiting [facility] determination. She stated she would call and let us know as soon as they find out something. CM will continue to follow and assist as needed with discharge planning / needs. DCP- Discharge Planning Updated by [email or web address]: Noreen Montejo on 04/10/18 4:[address] CM spoke with Latesha in rehab regarding eval. Latesha stated she is waiting to hear back from insurance for approval. CM will continue to follow and assist as needed with discharge planning / needs. DCP- Discharge Planning Updated by [id number]: Rosalind Coelho on 03/28/18 5:[address] Patient Name: JOSE LUIS WRIGHT Admission Status: ER Accout number: [id number] Admission Date: 03-23-2018 : 1940 Admission Diagnosis: Attending: ALAYNA FERNANDEZ Current LOS: 5 Anticipated DC Date: 04-02-2018 Planned Disposition: Home Primary Insurance: [facility] MEDICARE SOLUTIONS Discharge Planning Comments: CM MET WITH PATIENT REGARDING D/C NEEDS AND PLANS. PATIENT STATED HE LIVES WITH HIS (FANY) AND SHE WILL DRIVE HIM HOME AT DISCHARGE. PATIENT STATED HE HAS ONE STEP TO ENTER HOME AND NO STAIRS INSIDE. PATIENT IS INDEPENDENT WITH HIS CARE AND HAS A WALKER, SHOWER CHAIR, GLUCOMETER AT HOME. PATIENT IS HAVING SURGERY THIS WEEK AND WANTS TO SEE IF HE NEEDS HOME HEALTH AT THAT TIME AND WILL DISCUSS WITH HIS . CM WILL CONTINUE TO FOLLOW PATIENT WITH D/C NEEDS AND PLANS. PCP DR. COTY PEÑA AT [facility] FANY (SPOUSE) [phone] Shafting Cleaner: Rosalind Coelho DCPIA - Discharge Planning Initial Assessment Updated by [email or web address]: Rosalind Coelho on 03/28/18 6:04 pm * Is the patient Alert and Oriented? Yes * How many steps to enter\exit or inside your home? * PCP DR. ANSARI * Pharmacy [facility] * Preadmission Environment Home with Family * ADLs Independent * Equipment Glucometer Shower Chair Walker * List name and contact numbers for known caregivers / representatives who currently or will assist patient after discharge: FANY (SPOUSE) [phone] h [phone] * Verbal permission to speak to the caregivers and representatives has been obtained from the patient. Yes * Community resources currently utilized None * Additional services required to return to the preadmission environment? Yes * Can the patient safely return to the preadmission environment? Yes * Has this patient been hospitalized within the prior 30 days at any hospital? No Coverage Notice Reviewer: [id number] Nydia Montejo Notice Issued Date-Time: 04/12/2018 16:48 Notice Type: IM Discharge Notice Notice Delivered To: Patient Relationship to Patient: Self Manuscript Reader Name: Delivery Method: HAND - Hand Delivered Imani Days: Prior Verbal Notification: Recipient Understood Notice: Yes Recipient Signature: Yes Med Rec Note Co-signed by Attending: Coverage Notice Comment: Reviewer: [id number] Nydia Montejo Notice Issued Date-Time: 04/17/2018 10:02 Notice Type: IM Discharge Notice Notice Delivered To: Patient Relationship to Patient: Self Manuscript Reader Name: Delivery Method: HAND - Hand Delivered Imani Days: Prior Verbal Notification: Recipient Understood Notice: Yes Recipient Signature: Yes Med Rec Note Co-signed by Attending: Coverage Notice Comment: Last DP export: 04/17/18 9:40 a Patient Name: JOSE LUIS WRIGHT Page 26725 at 1050 All edits/amendments must be made on the electronic document DICTATION DATE: 04/17/18 1050 OVERNIGHT CASHIER: VETO 04/17/18 1050 RPT#: [id number] DC DATE: STATUS: ADM IN [facility] [address] [place] [address] END OF REPORT
[2018-04-17 11:00] VITALS: BP 133/60
[2018-04-17] MEDS ORDERED: ELIQUIS5 MG PO (11:42)
[2018-04-17] MEDS ORDERED: LOPRESSOR25 MG PO (11:43)
[2018-04-17] MEDS ORDERED: ASPIRIN EC81 M1 PO (11:43)
[2018-04-17] MEDS ORDERED: LASIX40 MG PO (11:44)
[2018-04-17] MEDS ORDERED: K-DUR20 MEQ PO (11:45)
[2018-04-17] MEDS ORDERED: ULTRAM50 MG PO (11:49)
--- NOTE | 2018-04-17 12:37 | MORECARE ---
CASE MANAGEMENT DISCHARGE SUMMARY PATIENT: JOSE LUIS WRIGHT UNIT: [id number] ADM DATE: 03/23/18 AGE: 77 : 38 SEX: M ROOM/BED: D.CV02 AUTHOR: DAVE,DOC PHYSICIAN: REFERRING PHYSICIAN: TIARA FERNANDEZ MD DATE OF SERVICE: 04/17/18 Discharge Plan Patient Name: JOSE LUIS WRIGHT Facility: [facility]:[place] : 1940 Planned Disposition: Home Health Service Anticipated Discharge Date: 04/02/18 Discharge Date: Expected LOS: 10 Initial Reviewer: [id number] Initial Review Date: 03/28/2018 Generated: 04/17/18 1:36 pm Comments DCP- Discharge Planning Updated by [id number]: Noreen Montejo on 04/17/18 11:[address] CM notified by patient spouse that she was concerned regarding cost of life vest and whether insurance was covering it. Spouse stated that Haylie with [facility] would be calling CM with pricing. Haylie did call and leave a message that patient required an auth for vest and monthly charge for DME. CM contacted Ginny with [facility] to see if this had been done. Ginny stated that they got auth from insurance prior to vest being delivered. CM doesn't know the rae of co-pay / or deductible for DME. CM will continue to follow and assist as needed with discharge planning / needs. DCP- Discharge Planning Updated by [id number]: Noreen Montejo on 04/17/18 9:[address] CM called [facility] spoke with Shyann. CM faxed updated clinical and Shyann stated they would admit him Monday04/18/18. CM called and spoke with Denise at [facility]. CM faxed updated walk test . Denise stated she would send someone with portable 02 tank to hospital room shortly. IMM explained and served 04/17/18 @ 1002. CM will continue to follow and assist as needed with discharge planning / needs. DCP- Discharge Planning Updated by [id number]: Noreen Montejo on 04/16/18 6:[address] Late Entry 04/16/18 CM was notified to get life vest for patient. CM notified [facility] and spoke with Ginny [phone]. CM got order completed by Dr. Harp and faxed records to Ginny. Ginny stated she would try to have vest delivered today. CM spoke with nursing and requested if vest arrives to be notified. CM will need to get another walk test for home 02 and set up . CM will continue to follow and assist with discharge planning / needs. Life Vest arrived at unit @ 1820. Rep explained and did patient teaching at bedside. Nursing asked Rep to call patients because she had questions regarding insurance coverage. DCP- Discharge Planning Updated by [email or web address]: Shawna Shabazz on 04/13/18 3:[address] CM was notified by Latesha with [facility] IRF that patient's insurance company denied him for IRF. CM called and spoke with Monica / Dr. Louis about doing peer to peer to appeal denial for IRF. Monica informed CM that Dr. Louis wanted to wait on IRF d/t change in patient's condition. Will re-initiate auth request when patient is medically stable if still appropriate. CM will continue to follow and assist as needed with discharge planning / needs. CM called [facility]. Spoke with Shyann and let her know that patient would not be discharged home at this time. Shyann verbalized understanding. DCP- Discharge Planning Updated by [id number]: Noreen Montejo on 04/12/18 4:[address] CM received request to find out rae of Eliquis 5 mg twice daily with patients insurance. CM finally got an answer that it is covered and the cost would be $30.00 month for 60 tabs @ [facility]. CM was also notified to work on Home Health. [facility] will admit patient on Friday 04/14. CM faxed over clinical and facesheet requested to [facility] [phone] fax [phone]. Received notice that patient will need Home 02. Request sent to [facility] [phone] CM faxed [phone] to Denise Schroeder walk test, facesheet and clinicals as requested. IMM explained and served 04/12/18 @ 2187. CM will continue to follow and assist as needed with discharge planning / needs. DCP- Discharge Planning Updated by [email or web address]: Noreen Barksdaler on 04/12/18 4:[address] CM spoke with Latesha from [facility]patient Rehab she states that she has spoke with [facility] twice today trying to get auth for rehab. She is still awaiting determination. DCP- Discharge Planning Updated by [id number]: Noreen Nikia on 04/11/18 9:[address] CM called and spoke with Nicole with Inpatient Rehab. She stated they are still awaiting [facility] determination. She stated she would call and let us know as soon as they find out something. CM will continue to follow and assist as needed with discharge planning / needs. DCP- Discharge Planning Updated by [id number]: Noreen Nikia on 04/10/18 4:[address] CM spoke with Latesha in rehab regarding eval. Latesha stated she is waiting to hear back from insurance for approval. CM will continue to follow and assist as needed with discharge planning / needs. DCP- Discharge Planning Updated by [id number]: Rosailnd Coelho on 03/28/18 5:[address] Patient Name: JOSE LUIS WRIGHT Admission Status: ER Accout number: [id number] Admission Date: 03-23-2018 : 1940 Admission Diagnosis: Attending: ALAYNA FERNANDEZ Current LOS: 5 Anticipated DC Date: 04-02-2018 Planned Disposition: Home Primary Insurance: [facility] MEDICARE SOLUTIONS Discharge Planning Comments: CM MET WITH PATIENT REGARDING D/C NEEDS AND PLANS. PATIENT STATED HE LIVES WITH HIS (FANY) AND SHE WILL DRIVE HIM HOME AT DISCHARGE. PATIENT STATED HE HAS ONE STEP TO ENTER HOME AND NO STAIRS INSIDE. PATIENT IS INDEPENDENT WITH HIS CARE AND HAS A WALKER, SHOWER CHAIR, GLUCOMETER AT HOME. PATIENT IS HAVING SURGERY THIS WEEK AND WANTS TO SEE IF HE NEEDS HOME HEALTH AT THAT TIME AND WILL DISCUSS WITH HIS . CM WILL CONTINUE TO FOLLOW PATIENT WITH D/C NEEDS AND PLANS. PCP DR. COTY PEÑA AT [facility] ([facility]) [phone] H [phone] Project Eng: Rosalind Coelho DCPIA - Discharge Planning Initial Assessment Updated by [email or web address]: Rosalind Coelho on 03/28/18 6:04 pm * Is the patient Alert and Oriented? Yes * How many steps to enter\exit or inside your home? * PCP DR. ANSARI * Pharmacy [facility] * Preadmission Environment Home with Family * ADLs Independent * Equipment Glucometer Shower Chair Walker * List name and contact numbers for known caregivers / representatives who currently or will assist patient after discharge: FANY ([place]) Paulo [phone] H [phone] * Verbal permission to speak to the caregivers and representatives has been obtained from the patient. Yes * Community resources currently utilized None * Additional services required to return to the preadmission environment? Yes * Can the patient safely return to the preadmission environment? Yes * Has this patient been hospitalized within the prior 30 days at any hospital? No Coverage Notice Reviewer: [id number] Montejo Notice Issued Date-Time: 04/12/2018 16:48 Notice Type: IM Discharge Notice Notice Delivered To: Patient Relationship to Patient: Self Cafeteria Food Server Name: Delivery Method: HAND - Hand Delivered Imani Days: Prior Verbal Notification: Recipient Understood Notice: Yes Recipient Signature: Yes Med Rec Note Co-signed by Attending: Coverage Notice Comment: Reviewer: [id number] Montejo Notice Issued Date-Time: 04/17/2018 10:02 Notice Type: IM Discharge Notice Notice Delivered To: Patient Relationship to Patient: Self Cafeteria Food Server Name: Delivery Method: HAND - Hand Delivered Imani Days: Prior Verbal Notification: Recipient Understood Notice: Yes Recipient Signature: Yes Med Rec Note Co-signed by Attending: Coverage Notice Comment: Last DP export: 04/17/18 9:50 a Patient Name: JOSE LUIS WRIGHT Page 16077 at 1237 All edits/amendments must be made on the electronic document DICTATION DATE: 04/17/18 1236 WAREHOUSE RECEIVING CLERK: VETO 04/17/18 1236 RPT#: [id number] DC DATE: STATUS: ADM IN [facility] [address] [place] [address] END OF REPORT
--- NOTE | 2018-04-17 16:41 | MORECARE ---
CASE MANAGEMENT DISCHARGE SUMMARY PATIENT: JOSE LUIS WRIGHT UNIT: [id number] ADM DATE: 03/23/18 AGE: 77 : 38 SEX: M ROOM/BED: D.CV02 AUTHOR: DAVE,DOC PHYSICIAN: REFERRING PHYSICIAN: TIARA FERNANDEZ MD DATE OF SERVICE: 04/17/18 Discharge Plan Patient Name: JOSE LUIS WRIGHT Facility: [facility]:[place] : 1940 Planned Disposition: Home Health Service Anticipated Discharge Date: 04/02/18 Discharge Date: 04/17/2018 Expected LOS: 10 Initial Reviewer: [email or web address] Initial Review Date: 03/28/2018 Generated: 04/17/18 5:41 pm Comments DCP- Discharge Planning Updated by [id number]: Noreen Montejo on 04/17/18 11:[address] CM notified by patient spouse that she was concerned regarding cost of life vest and whether insurance was covering it. Spouse stated that Haylie with [facility] would be calling CM with pricing. Haylie did call and leave a message that patient required an auth for vest and monthly charge for DME. CM contacted Ginny with [facility] to see if this had been done. Ginny stated that they got auth from insurance prior to vest being delivered. CM doesn't know the rae of co-pay / or deductible for DME. CM will continue to follow and assist as needed with discharge planning / needs. DCP- Discharge Planning Updated by [email or web address]: Noreen Montejo on 04/17/18 9:[address] CM called [facility] spoke with Shyann. CM faxed updated clinical and Shyann stated they would admit him Monday04/18/18. CM called and spoke with Denise at [facility]. CM faxed updated walk test . Denise stated she would send someone with portable 02 tank to hospital room shortly. IMM explained and served 04/17/18 @ 1002. CM will continue to follow and assist as needed with discharge planning / needs. DCP- Discharge Planning Updated by [id number]: Noreen Montejo on 04/16/18 6:[address] Late Entry 04/16/18 CM was notified to get life vest for patient. CM notified [facility] and spoke with Ginny [phone]. CM got order completed by Dr. Harp and faxed records to Ginny. Ginny stated she would try to have vest delivered today. CM spoke with nursing and requested if vest arrives to be notified. CM will need to get another walk test for home 02 and set up . CM will continue to follow and assist with discharge planning / needs. Life Vest arrived at unit @ 1820. Rep explained and did patient teaching at bedside. Nursing asked Rep to call patients because she had questions regarding insurance coverage. DCP- Discharge Planning Updated by [id number]: Shawna Mele on 04/13/18 3:[address] CM was notified by Latesha with [facility] that patient's insurance company denied him for IRF. CM called and spoke with Monica / Dr. Louis about doing peer to peer to appeal denial for IRF. Monica informed CM that Dr. Louis wanted to wait on IRF d/t change in patient's condition. Will re-initiate auth request when patient is medically stable if still appropriate. CM will continue to follow and assist as needed with discharge planning / needs. CM called [facility]. Spoke with Shyann and let her know that patient would not be discharged home at this time. Shyann verbalized understanding. DCP- Discharge Planning Updated by [id number]: Noreen Montejo on 04/12/18 4:[address] CM received request to find out rae of Eliquis 5 mg twice daily with patients insurance. CM finally got an answer that it is covered and the cost would be $30.00 month for 60 tabs @ [facility]. CM was also notified to work on [facility]. [facility] will admit patient on Friday 04/14. CM faxed over clinical and facesheet requested to [facility] [phone] fax [phone]. Received notice that patient will need Home 02. Request sent to [facility] [phone] CM faxed [phone] to Denise Schroeder walk test, facesheet and clinicals as requested. IMM explained and served 04/12/18 @ 4713. CM will continue to follow and assist as needed with discharge planning / needs. DCP- Discharge Planning Updated by [email or web address]: Noreen Nikia on 04/12/18 4:[address] CM spoke with Latesha from Inpatient Rehab she states that she has spoke with [facility] twice today trying to get auth for rehab. She is still awaiting determination. DCP- Discharge Planning Updated by [id number]: Noreen Montejo on 04/11/18 9:[address] CM called and spoke with Nicole with Inpatient Rehab. She stated they are still awaiting [facility] determination. She stated she would call and let us know as soon as they find out something. CM will continue to follow and assist as needed with discharge planning / needs. DCP- Discharge Planning Updated by [id number]: Noreen Montejo on 04/10/18 4:[address] CM spoke with Latesha in rehab regarding eval. Latesha stated she is waiting to hear back from insurance for approval. CM will continue to follow and assist as needed with discharge planning / needs. DCP- Discharge Planning Updated by [id number]: Rosalind Coelho on 03/28/18 5:[address] Patient Name: JOSE LUIS RWIGHT Admission Status: ER Accout number: [id number] Admission Date: 03-23-2018 : 1940 Admission Diagnosis: Attending: ALAYNA FERNANDEZ Current LOS: 5 Anticipated DC Date: 04-02-2018 Planned Disposition: Home Primary Insurance: [facility] MEDICARE [employer] Discharge Planning Comments: CM MET WITH PATIENT REGARDING D/C NEEDS AND PLANS. PATIENT STATED HE LIVES WITH HIS (FANY) AND SHE WILL DRIVE HIM HOME AT DISCHARGE. PATIENT STATED HE HAS ONE STEP TO ENTER HOME AND NO STAIRS INSIDE. PATIENT IS INDEPENDENT WITH HIS CARE AND HAS A WALKER, SHOWER CHAIR, GLUCOMETER AT HOME. PATIENT IS HAVING SURGERY THIS WEEK AND WANTS TO SEE IF HE NEEDS HOME HEALTH AT THAT TIME AND WILL DISCUSS WITH HIS . CM WILL CONTINUE TO FOLLOW PATIENT WITH D/C NEEDS AND PLANS. PCP DR. COTY PEÑA AT [facility] ([place]) C [phone] H [phone] Recreation Establishment Manager: Rosalind Coelho DCPIA - Discharge Planning Initial Assessment Updated by [id number]: Rosalind Coelho on 03/28/18 6:04 pm * Is the patient Alert and Oriented? Yes * How many steps to enter\exit or inside your home? * PCP DR. ANSARI * Pharmacy [facility] * Preadmission Environment Home with Family * ADLs Independent * Equipment Glucometer Shower Chair Walker * List name and contact numbers for known caregivers / representatives who currently or will assist patient after discharge: FANY ([place]) Paulo [phone] H [phone] * Verbal permission to speak to the caregivers and representatives has been obtained from the patient. Yes * Community resources currently utilized None * Additional services required to return to the preadmission environment? Yes * Can the patient safely return to the preadmission environment? Yes * Has this patient been hospitalized within the prior 30 days at any hospital? No Coverage Notice Reviewer: [id number] Montejo Notice Issued Date-Time: 04/12/2018 16:48 Notice Type: IM Discharge Notice Notice Delivered To: Patient Relationship to Patient: Self Brand Analyst Name: Delivery Method: HAND - Hand Delivered Imani Days: Prior Verbal Notification: Recipient Understood Notice: Yes Recipient Signature: Yes Med Rec Note Co-signed by Attending: Coverage Notice Comment: Reviewer: [id number] Montejo Notice Issued Date-Time: 04/17/2018 10:02 Notice Type: IM Discharge Notice Notice Delivered To: Patient Relationship to Patient: Self Brand Analyst Name: Delivery Method: HAND - Hand Delivered Imani Days: Prior Verbal Notification: Recipient Understood Notice: Yes Recipient Signature: Yes Med Rec Note Co-signed by Attending: Coverage Notice Comment: Last DP export: 04/17/18 11:37 a Patient Name: JOSE LUIS WRIGHT Page [id number] at 1641 All edits/amendments must be made on the electronic document DICTATION DATE: 04/17/18 164 MILLER HEAD ASSISTANT WET PROCESS: VETO 04/17/181640 RPT#: [id number] DC DATE:04/17/18 STATUS: DIS IN [facility] [address] [place] [address] END OF REPORT
== END 2018-04-17 13:29 | disposition home health service (06) | DRG 233 ==
LOC: D.ER 15:11 → D.EDHOLD 16:36 → D.M2 16:36 → OBSVTIME 16:36 → D.EDHOLD 16:36 → D.M2 16:37 → D.CVICU 03-23 10:11 → D.M2 03-23 11:57 → D.CVICU 03-29 16:26
PROVIDERS: Family Medicine; Internal Medicine Cardiovascular Disease; Internal Medicine Hematology & Oncology; Internal Medicine Nephrology; Thoracic Surgery (Cardiothoracic Vascular Surgery); ADMIT Internal Medicine Interventional Cardiology
PROC: B2151ZZ Fluoroscopy of Left Heart using Low Osmolar Contrast (ICD-10-PCS; 2018-03-26)
PROC: 4A023N7 Measurement of Cardiac Sampling and Pressure, Left Heart, Percutaneous Approach (ICD-10-PCS; 2018-03-26)
PROC: 02HV33Z Insertion of Infusion Device into Superior Vena Cava, Percutaneous Approach (ICD-10-PCS; 2018-03-26)
PROC: B548ZZA Ultrasonography of Superior Vena Cava, Guidance (ICD-10-PCS; 2018-03-26)
PROC: B2111ZZ Fluoroscopy of Multiple Coronary Arteries using Low Osmolar Contrast (ICD-10-PCS; principal; 2018-03-26 08:06)
PROC: 5A02210 Assistance with Cardiac Output using Balloon Pump, Continuous (ICD-10-PCS; 2018-03-29)
PROC: 021209W Bypass Coronary Artery, Three Arteries from Aorta with Autologous Venous Tissue, Open Approach (ICD-10-PCS; 2018-03-30)
PROC: 02100Z9 Bypass Coronary Artery, One Artery from Left Internal Mammary, Open Approach (ICD-10-PCS; 2018-03-30)
PROC: 06BP4ZZ Excision of Right Saphenous Vein, Percutaneous Endoscopic Approach (ICD-10-PCS; 2018-03-30)
PROC: B245ZZ4 Ultrasonography of Left Heart, Transesophageal (ICD-10-PCS; 2018-03-30)
PROC: 5A1221Z Performance of Cardiac Output, Continuous (ICD-10-PCS; 2018-03-30)
PROC: 02L70ZK Occlusion of Left Atrial Appendage, Open Approach (ICD-10-PCS; 2018-03-30)
PROC: 05HY33Z Insertion of Infusion Device into Upper Vein, Percutaneous Approach (ICD-10-PCS; 2018-04-05)
DX: I25.110 Atherosclerotic heart disease of native coronary artery with unstable angina pectoris (principal); I50.43 Acute on chronic combined systolic (congestive) and diastolic (congestive) heart failure; N17.9 Acute kidney failure, unspecified; N39.0 Urinary tract infection, site not specified; G72.81 Critical illness myopathy; I82.622 Acute embolism and thrombosis of deep veins of left upper extremity; I13.0 Hypertensive heart and chronic kidney disease with heart failure and stage 1 through stage 4 chronic kidney disease, or unspecified chronic kidney disease; I48.0 Paroxysmal atrial fibrillation; R94.31 Abnormal electrocardiogram [ECG] [EKG]; E78.5 Hyperlipidemia, unspecified; E11.65 Type 2 diabetes mellitus with hyperglycemia; I49.5 Sick sinus syndrome; I25.5 Ischemic cardiomyopathy; G47.33 Obstructive sleep apnea (adult) (pediatric); H91.91 Unspecified hearing loss, right ear; B95.7 Other staphylococcus as the cause of diseases classified elsewhere; B95.2 Enterococcus as the cause of diseases classified elsewhere; R00.0 Tachycardia, unspecified; E11.22 Type 2 diabetes mellitus with diabetic chronic kidney disease; N18.3 Chronic kidney disease, stage 3 (moderate)

== ENCOUNTER → 2018-04-24 11:26 | Outpatient (CLI) | payer MEDICARE ==
[2018-03-23 14:22] VITALS: BMI 29.3
[~2018-04-24 11:26] MED LIST changes: +ALBUTEROL SULF8.5 GM INH; +ASPIRIN EC81 M1 PO; +ELIQUIS5 MG PO; +K-DUR20 MEQ PO; +LASIX40 MG PO; +LOPRESSOR25 MG PO; +TERAZOSIN HCL2 MG PO; +ULTRAM50 MG PO
[2018-04-24 12:10] LABS: HEMATOCRIT 35.8 % (42.0-54.0); HEMOGLOBIN 11.9 g/dL (13.5-17.5); MCH 28.5 pg (26.0-34.0); MCHC 33.2 g/dL (31.0-37.0); MCV 85.9 fL (80.0-100.0); MEAN PLATELET VOLUME 9.7 fL (7.4-10.4); RBC 4.17 10x6/uL (4.20-6.10); RDW 13.2 % (11.5-14.5); WBC 7.9 10x3/uL (4.8-10.8)
[2018-04-24 12:23] LABS: ANION GAP 14.1 mmol/L (8-16); CALCIUM 8.5 mg/dL (8.5-10.1); CARBON DIOXIDE 28.6 mmol/L (21.0-32.0); CREATININE - SERUM 1.6 mg/dL (0.6-1.3); POTASSIUM - SERUM 3.7 mmol/L (3.5-5.1)
== END | disposition home or self-care (01) ==
LOC: D.LAB 10:25
PROVIDERS: Thoracic Surgery (Cardiothoracic Vascular Surgery)
DX: J90 Pleural effusion, not elsewhere classified (principal); D64.9 Anemia, unspecified; E56.1 Deficiency of vitamin K

== ENCOUNTER → 2018-05-09 09:34 | Outpatient (CLI) | payer MEDICARE ==
[2018-03-23 14:22] VITALS: BMI 29.3
[2018-05-09 10:22] LABS: HEMOGLOBIN 10.8 g/dL (13.5-17.5); MCH 28.7 pg (26.0-34.0); MCHC 32.7 g/dL (31.0-37.0); MCV 87.8 fL (80.0-100.0); MEAN PLATELET VOLUME 9.6 fL (7.4-10.4); RBC 3.76 10x6/uL (4.20-6.10); RDW 14.2 % (11.5-14.5); WBC 7.3 10x3/uL (4.8-10.8)
[2018-05-09 10:35] LABS: ALBUMIN 3.2 g/dL (3.4-5.0); ANION GAP 11.7 mmol/L (8-16); BILIRUBIN - TOTAL 0.66 mg/dL (0.2-1.3); CALCIUM 8.3 mg/dL (8.5-10.1); CARBON DIOXIDE 30.7 mmol/L (21.0-32.0); CREATININE - SERUM 1.5 mg/dL (0.6-1.3); POTASSIUM - SERUM 4.4 mmol/L (3.5-5.1); PROTEIN - SERUM 6.6 g/dL (6.4-8.2)
== END | disposition home or self-care (01) ==
LOC: D.LAB 09:34
PROVIDERS: Thoracic Surgery (Cardiothoracic Vascular Surgery)
DX: J90 Pleural effusion, not elsewhere classified (principal); D64.9 Anemia, unspecified

== ENCOUNTER → 2018-06-25 16:56 | Outpatient (CLI) | payer MEDICARE ==
[2018-06-25 17:39] LABS: BASOPHILS 0.3 % (0-2); EOSINOPHILS 3.8 % (0-7); HEMATOCRIT 33.6 % (42.0-54.0); IMMATURE GRANULOCYTES 0.1 % (0-5); LYMPHOCYTES 17.1 % (15-50); MCHC 32.7 g/dL (31.0-37.0); MCV 85.5 fL (80.0-100.0); MEAN PLATELET VOLUME 10.5 fL (7.4-10.4); MONOCYTES 7.1 % (2-11); NEUTROPHILS 71.6 % (40-80); PLATELET COUNT 192 10x3/uL (130-400); RBC 3.93 10x6/uL (4.20-6.10); RDW 15.3 % (11.5-14.5); WBC 8.6 10x3/uL (4.8-10.8)
== END | disposition home or self-care (01) ==
LOC: D.LABREF 16:56
PROVIDERS: Nurse Practitioner
DX: L03.90 Cellulitis, unspecified (principal)

== ENCOUNTER → 2018-08-21 10:19 | Outpatient (CLI) | payer MEDICARE ==
[2018-03-23 14:22] VITALS: BMI 29.3
== END | disposition home or self-care (01) ==
LOC: D.CR 10:19
PROVIDERS: ATTEND Family Medicine
DX: Z02.9 Encounter for administrative examinations, unspecified (principal); Z95.1 Presence of aortocoronary bypass graft; E11.9 Type 2 diabetes mellitus without complications; I10 Essential (primary) hypertension; E78.00 Pure hypercholesterolemia, unspecified

== ENCOUNTER 2019-01-18 18:09 | Emergency (ER) | payer MEDICARE ==
[~2019-01-18] VITALS: Ht 180.3 cm; Wt 90.9 kg
[2019-01-18 18:19] VITALS: Ht 180.3 cm; Wt 90.9 kg
[2019-01-18 19:32] LABS: BASOPHILS 0.1 % (0-2); EOSINOPHILS 2.9 % (0-7); HEMATOCRIT 40.4 % (42.0-54.0); HEMOGLOBIN 13.2 g/dL (13.5-17.5); IMMATURE GRANULOCYTES 0.3 % (0-5); LYMPHOCYTES 13.6 % (15-50); MCH 30.5 pg (26.0-34.0); MCHC 32.7 g/dL (31.0-37.0); MCV 93.3 fL (80.0-100.0); MEAN PLATELET VOLUME 9.8 fL (7.4-10.4); MONOCYTES 8.8 % (2-11); NEUTROPHILS 74.3 % (40-80); RBC 4.33 10x6/uL (4.20-6.10); RDW 13.6 % (11.5-14.5)
[2019-01-18 19:36] LABS: CALC OSMOLALITY 293 mosm/kg (275-300); CARBON DIOXIDE 28.8 mmol/L (21.0-32.0); CHLORIDE - SERUM 106 mmol/L (98-107); CREATININE - SERUM 1.4 mg/dL (0.6-1.3); GLUCOSE 186 mg/dL (74-106); POTASSIUM - SERUM 5.4 mmol/L (3.5-5.1); SODIUM 141 mmol/L (136-145); UREA NITROGEN 36 mg/dL (7-18); eGFR NON AFRICAN AMERICAN 52 mL/min (90-120)
[2019-01-18 19:43] LABS: PLATELET COUNT 153 10x3/uL (130-400)
[2019-01-18 19:55] LABS: ALBUMIN 3.8 g/dL (3.4-5.0); ALKALINE PHOSPHATASE 85 U/L (46-116); ALT (SGPT) 95 U/L (10-68); BILIRUBIN - TOTAL 1.62 mg/dL (0.2-1.3); CKMB 5.2 U/L (0.0-3.6); MAGNESIUM - SERUM 2.1 mg/dL (1.8-2.4); PRO BNP 2085 pg/mL (0-450); THYROID STIMULATING HORMONE 1.64 uIU/mL (0.36-3.74); TROPONIN-I 0.029 ng/mL (0.000-0.060)
[2019-01-18] MEDS ORDERED: CATAPRES0.1 MG PO (20:08)
[2019-01-18 21:47] VITALS: BP 201/75
== END 2019-01-18 21:47 | disposition home or self-care (01) ==
LOC: D.ER 18:09
PROVIDERS: Family Medicine
DX: I11.0 Hypertensive heart disease with heart failure (principal); I50.9 Heart failure, unspecified; I25.10 Atherosclerotic heart disease of native coronary artery without angina pectoris; E87.5 Hyperkalemia

== ENCOUNTER → 2019-03-22 09:37 | Outpatient (CLI) | payer MEDICARE ==
[2019-01-18 18:19] VITALS: BMI 27.9
[~2019-03-22 09:37] MED LIST changes: +CATAPRES0.1 MG PO
== END | disposition home or self-care (01) ==
LOC: D.US 09:37
PROVIDERS: ATTEND Thoracic Surgery (Cardiothoracic Vascular Surgery)
DX: I65.23 Occlusion and stenosis of bilateral carotid arteries (principal)

== ENCOUNTER 2019-12-21 11:50 | Emergency (ER) | payer OTHER ==
[~2019-12-21] VITALS: Ht 180.3 cm; Wt 90.9 kg
[2019-12-21 12:01] VITALS: Ht 180.3 cm; Wt 90.9 kg
[2019-12-21 13:21] LABS: BASOPHILS 0.3 % (0-2); EOSINOPHILS 2.5 % (0-7); HEMATOCRIT 38.3 % (42.0-54.0); HEMOGLOBIN 12.8 g/dL (13.5-17.5); LYMPHOCYTES 16.8 % (15-50); MCH 30.7 pg (26.0-34.0); MCHC 33.4 g/dL (31.0-37.0); MCV 91.8 fL (80.0-100.0); MEAN PLATELET VOLUME 9.7 fL (7.4-10.4); MONOCYTES 8.5 % (2-11); NEUTROPHILS 71.9 % (40-80); RBC 4.17 10x6/uL (4.20-6.10); RDW 13.8 % (11.5-14.5); WBC 7.3 10x3/uL (4.8-10.8)
[2019-12-21 13:30] LABS: PLATELET COUNT 115 10x3/uL (130-400)
[2019-12-21 13:35] LABS: ANION GAP 11.7 mmol/L (8-16); CALCIUM 8.2 mg/dL (8.5-10.1); CREATININE - SERUM 1.1 mg/dL (0.6-1.3); POTASSIUM - SERUM 4.7 mmol/L (3.5-5.1)
[2019-12-21 13:42] LABS: ALBUMIN 3.7 g/dL (3.4-5.0); BILIRUBIN - TOTAL 1.42 mg/dL (0.2-1.3); PROTEIN - SERUM 6.6 g/dL (6.4-8.2)
[2019-12-21 13:49] LABS: APTT 33.4 SECONDS (22.8-39.4); INR 1.11 (0.85-1.17); PROTIME 14.2 SECONDS (11.6-15.0)
[2019-12-21 13:54] LABS: BILIRUBIN NEGATIVE (NEGATIVE); KETONE NEGATIVE (NEGATIVE); NITRITE NEGATIVE (NEGATIVE); UROBILINOGEN NORMAL mg/dL (< 2)
[2019-12-21] MEDS ORDERED: CYCLOBENZAPRINE10 MG PO (14:55)
[2019-12-21] MEDS ORDERED: ACETAMINOPHEN500 M1 PO (14:55)
[2019-12-21 15:12] VITALS: BP 126/78
== END 2019-12-21 15:13 | disposition home or self-care (01) ==
LOC: D.ER 11:50
PROVIDERS: Family Medicine
DX: S20.219A Contusion of unspecified front wall of thorax, initial encounter (principal); S13.4XXA Sprain of ligaments of cervical spine, initial encounter; T14.8XXA Other injury of unspecified body region, initial encounter; V49.9XXA Car occupant (driver) (passenger) injured in unspecified traffic accident, initial encounter; M79.18 Myalgia, other site; M54.2 Cervicalgia; E11.9 Type 2 diabetes mellitus without complications; I10 Essential (primary) hypertension; J45.909 Unspecified asthma, uncomplicated